=== PATIENT | female | born 1990 | race Caucasian/White ===

== ENCOUNTER → 2017-01-18 | Outpatient (CLI) | payer OTHER ==
[2017-01-18 12:17] LABS: BASO % 0.4 %; BASO ABS # 0.04 K/uL (0-0.2); COMPLETE YES; EOS % 1.7 %; HEMATOCRIT 41.8 % (37-47); IG% 0.3 %; LYMPH % 24.3 %; LYMPH ABS # 2.28 K/uL (1.2-3.4); MEAN CELL VOLUME 87.4 fL (80-100); MEAN CORPUSCULAR HEMOGLOBIN 30.5 pg (25-34); MEAN CORPUSCULAR HGB CONC 34.9 g/dl (32-36); MEAN PLATELET VOLUME 10.7 fL (7.4-10.4); MONO % 7.1 %; NEUT % 66.2 %; PLATELET COUNT 295 K/uL (130-400); RED BLOOD COUNT 4.78 M/uL (4.2-5.4); WHITE BLOOD COUNT 9.38 K/uL (4.8-10.8)
[2017-01-18 12:30] LABS: ALT/SGPT 22 U/L (12-78); AST/SGOT 12 U/L (15-37); BLOOD UREA NITROGEN 9 mg/dl (7-18); CALCIUM 9.2 mg/dl (8.5-10.1); CARBON DIOXIDE 29 mmol/L (21-32); CHLORIDE 105 mmol/L (98-107); CREATININE 0.79 mg/dl (0.60-1.20); GLUCOSE 83 mg/dl (70-99); MAGNESIUM 1.9 mg/dl (1.8-2.4); POTASSIUM 4.1 mmol/L (3.5-5.1); SODIUM 139 mmol/L (136-145)
[2017-01-18 12:41] LABS: ALB/GLOB RATIO 0.9 (0.9-2); ALKALINE PHOSPHATASE 60 U/L (45-117)
[2017-01-18 12:58] LABS: ESTIMATED AVERAGE GLUCOSE 108 mg/dl; HA1C FLAG Normal (Normal)
== END | disposition home or self-care (01) ==
LOC: C.LAB1850 09:38
PROVIDERS: ATTEND Nurse Practitioner Adult Health
DX: R00.2 Palpitations (principal); Z13.1 Encounter for screening for diabetes mellitus

== ENCOUNTER 2022-04-05 08:02 | Inpatient (IN) ==
[2022-04-05] MEDS ORDERED: LIDOCAINE 1% LOCAL 20 ML VIAL INFIL PRN (10:58)
[2022-04-05] MEDS ORDERED: miSOPROStoL 50 MCG TAB PO ONE (10:58)
[2022-04-05] MEDS ORDERED: OXYTOCIN 30 UNITS/500 ML BAG IV PRN (10:58)
--- NOTE | 2022-04-05 11:02 | Obstetrical Progress Note ---
Date of Service April 05, 2022 Assessment & Plan (1) : Plan: Indcution for Obesity and GDMA1 FHR; CAT1 ctx .Minimal VE;F t/post/-3 Cytotec #1 Admission and Anticipated Discharge Date Admission Date: April 05, 2022 Results & Data ([facility]) Vital Signs (Past 12 Hours) Vital Signs Temp Pulse Resp BP 04/05/22 08:12 36.7 C 99 H 20 141/83 H 04/05/22 08:13 36.7 C 99 H 20 141/83 H
[2022-04-05 11:25] LABS: Hemoglobin 11.9 g/dl (12.0-16.0); Mean Corpuscular Hemoglobin 28.5 pg (25.0-34.0); Mean Corpuscular Hgb Conc 33.1 g/dL (32.0-36.0); Mean Corpuscular Volume 86.3 fL (80.0-100.0); Mean Platelet Volume 10.7 fL (9.4-12.3); Platelet Count 273 K/uL (130-400); RDW Coefficient of Variation 15.7 % (11.5-14.5); RDW Standard Deviation 48.6 fL (36.4-46.3); Red Blood Count 4.17 M/uL (3.93-5.22); White Blood Count 16.52 K/ul (4.8-10.8)
[2022-04-05] MEDS ORDERED: PHARMACY GLYCEMIC MGMT CONSULT PRN (12:42)
[2022-04-05] MEDS ORDERED: DEXTROSE 50% 50 ML SYRINGE IV PRN (13:45)
[2022-04-05] MEDS ORDERED: GLUCOSE 10 TAB/TUBE PO PRN (13:45)
[2022-04-05] MEDS ORDERED: GLUCOSE 40% GEL 15 GM TUBE PO PRN (13:45)
[2022-04-05] MEDS ORDERED: GLUCAGON FOR INJ 1 MG VIAL IM PRN (13:45)
--- NOTE | 2022-04-05 13:56 | Pharmacy Report ---
Pharmacy Glycemic Short Note 2 - Date of Service April 05, 2022 - Glycemic Short OUTPATIENT ANTIDIABETIC REGIMEN: * Levemir 10 units SQ qHS ASSESSMENT: * Ms Bae is here for induction of labor. * Pt has been using insulin for gestational diabetes. Will continue until patient delivers, at which time, suspect that patient's insulin needs will decrease/cease. * Will continue to follow and adjust as indicated. PLAN FOR INPATIENT GLYCEMIC CONTROL: * Basal insulin * Lantus 5 units SQ BID * Bolus insulin * NovoLog per scale q4h until delivery * Goal Range: Low 90 mg/dL - High 120 mg/dL * Correction Factor: per scale (see EMR for more details)
[2022-04-05] MEDS: INSULIN ASPART PER UNIT SC SCH ×2 (16:14→20:09)
[2022-04-05] MEDS: miSOPROStoL 50 MCG TAB PO SCH ×2 (16:35→20:39)
[2022-04-05] MEDS ORDERED: DINOPROSTONE 10 MG INSERT PV ONE (20:49)
[2022-04-05] MEDS ORDERED: miSOPROStoL 50 MCG TAB PO SCH (21:00)
[2022-04-05] MEDS ORDERED: LANTUS PER UNIT CHARGE SQ SCH (21:00)
[2022-04-05] MEDS: LANTUS PER UNIT CHARGE SQ SCH (21:03)
--- NOTE | 2022-04-05 22:52 | Labor Progress Brief Note ---
Date of Service April 05, 2022 Assessment & Plan (1) : Plan: Induction for obesity Pt doing well FHR; CAT1 Ctx ; Minimal VE; ft/post Cervidil #1 placed Admission and Anticipated Discharge Date Admission Date: April 05, 2022 Results & Data ([facility]) Vital Signs (Past 12 Hours) Vital Signs Temp Pulse Resp BP 04/05/22 19:00 37.0 C 18 04/05/22 22:10 37.1 C 106 H 18 136/83 04/05/22 19:06 96 H 146/90 H 04/05/22 11:52 36.8 C 88 18 137/93 04/05/22 11:12 92 H 163/99 H
[2022-04-06] MEDS: INSULIN ASPART PER UNIT SC SCH ×4 (08:08→20:05)
[2022-04-06] MEDS: LANTUS PER UNIT CHARGE SQ SCH ×2 (08:30→20:10)
[2022-04-06] MEDS: miSOPROStoL 50 MCG TAB PO SCH ×4 (08:36→23:33)
--- NOTE | 2022-04-06 10:51 | Labor Progress Brief Note ---
Date of Service April 06, 2022 Assessment & Plan Admission and Anticipated Discharge Date Admission Date: April 05, 2022 Physical Exam Genitourinary: Manual OB Exam: + cervical dilation fingertip, + cervical effacement 50% and + station high OB Exam Monitor Tracing: + external FHT monitor used, + external uterine monitor used, + category I and + normal FHT variability Cervidil removed. Will start Cytotec to continue ripening. Results & Data ([facility]) Vital Signs (Past 12 Hours) Vital Signs Temp Pulse Resp BP 04/06/22 07:09 18 04/06/22 07:09 36.8 C 100 H 18 132/87 04/06/22 02:32 36.8 C 87 18 127/78
[2022-04-06] MEDS ORDERED: Nursing to Pharmacy Communication SCH ×2 (11:15→19:45)
[2022-04-06] MEDS ORDERED: miSOPROStoL 50 MCG TAB PO SCH (20:00)
[2022-04-07] MEDS: miSOPROStoL 50 MCG TAB PO SCH ×2 (03:48→19:45)
[2022-04-07] MEDS: LANTUS PER UNIT CHARGE SQ SCH (08:06)
[2022-04-07] MEDS: LACTATED RINGER'S 1,000 ML IV PRN ×3 (09:45→18:41)
--- NOTE | 2022-04-07 10:08 | Obstetrical Progress Note ---
Date of Service April 07, 2022 Assessment & Plan (1) : Plan: Induction day #3 pt doing well FHR; CAT1 Ctx; Minimal Attempted gordon bulb placement. cervix was dilated and bulb fell after 30cc saline VE: /-2 Plan start Pitocin augmentation Admission and Anticipated Discharge Date Admission Date: April 05, 2022 Results & Data ([facility]) Vital Signs (Past 12 Hours) Vital Signs Temp Pulse Resp BP 04/07/22 07:12 36.7 C 18 04/06/22 23:00 37.3 C 16 04/07/22 07:10 18 04/07/22 07:10 36.7 C 18 04/07/22 07:15 95 H 133/78 04/07/22 04:52 18 04/07/22 04:52 37.0 C 18 04/07/22 03:03 93 H 121/70 04/06/22 22:53 102 H 134/87
[2022-04-07] MEDS: OXYTOCIN 30 UNITS/500 ML BAG IV PRN (10:20)
--- NOTE | 2022-04-07 10:36 | Pharmacy Report ---
Pharmacy Glycemic Short Note 2 - Date of Service April 07, 2022 - Glycemic Short BSG Results (Last 24 hours): 04/06/22 04/06/22 04/06/22 12:00 15:59 20:02 POC Glucose 92 128 H 84 04/06/22 04/07/22 04/07/22 23:57 03:32 07:59 POC Glucose 85 80 91 OUTPATIENT ANTIDIABETIC REGIMEN: * Levemir 10 units SQ qHS ASSESSMENT: 04/07: * Patient received 10 units of basal insulin and 2 units of bolus insulin yesterday. * Blood sugars have been well controlled ranging between 81 to 128 mg/dl yesterday. * Will continue current dosing until patient delivers. Background 04/05/22: * Ms Bae is here for induction of labor. * Pt has been using insulin for gestational diabetes. Will continue until patient delivers, at which time, suspect that patient's insulin needs will decrease/cease. * Will continue to follow and adjust as indicated. PLAN FOR INPATIENT GLYCEMIC CONTROL: * Basal insulin * Lantus 5 units SQ BID while still in labor. Hold after delivery. * Bolus insulin * NovoLog per scale q4h until delivery * Goal Range: Low 90 mg/dL - High 120 mg/dL * Correction Factor: per scale (see EMR for more details)
[2022-04-07] MEDS ORDERED: Nursing to Pharmacy Communication SCH (11:30)
[2022-04-07] MEDS: INSULIN ASPART PER UNIT SC SCH ×2 (11:59→20:02)
[2022-04-07] MEDS ORDERED: ePHEDrine sulfate 50 MG/ML AMP ONE (17:51)
[2022-04-07] MEDS ORDERED: fentaNYL citrate 100 MCG/2 ML VIAL ONE (17:52)
[2022-04-07] MEDS ORDERED: SODIUM CHLORIDE 0.9% INJ 10 ML VIAL ONE (17:52)
[2022-04-07] MEDS ORDERED: BUPIVACAINE 0.25% 30 ML VIAL ONE (17:52)
[2022-04-07] MEDS ORDERED: LIDOCAINE 2%/EPINEPHRINE 1:200,000 20 ML SDV ONE (17:52)
[2022-04-07] MEDS ORDERED: fentaNYL 2MCG/ML ROPIVACAINE 1.25MG/ML 100 ML BAG EPI ONE (17:52)
--- NOTE | 2022-04-07 18:03 | Anesthesiology Consultation ---
Date of Service April 07, 2022 Assessment & Plan Chart Review Chart Review: Patient NOT seen in Pre Admission Testing and Acceptable Risk for Labor Epidural Consults Requested none ASA ASA3 Proposed Anesthesia Anesthesia Type: Labor Epidural Risk / Benefits Reviewed With: PT / POA / Parent / Guardian, Accepts Plan and Informed Consent Obtained History Height/Weight Height: 5 ft 6 in Weight: 144.242 kg Allergies Allergy/AdvReac Type Severity Reaction Status Date / Time amoxicillin Allergy Hives Verified 04/05/22 08:49 Medications Home Medications Medication Instructions Recorded Confirmed Last Taken albuterol sulfate 90 mcg/actuation 2 puffs inhalation Q8H PRN sob #1 g 11/20/19 06/12/20 05/14/20 aerosol inhaler aspirin 81 mg chewable tablet 81 mg PO DAILY 04/05/22 04/05/22 04/05/22 insulin detemir U-100 100 unit/mL 10 unit subcut HS 04/05/22 04/05/22 04/04/22 (3 mL) subcutaneous pen [id number] 1 mg 1 tab PO 04/05/22 04/05/22 tablet Active Medications Generic Name Dose Route Start Last Admin Trade Name Freq PRN Reason Stop Dose Admin Lactated Ringer's 1,000 mls @ 125 mls/hr 04/05/22 10:58 04/07/22 17:36 Lr IV 04/07/22 23:59 999 mls/hr .Q8H PRN Administration L&D Protocol Protocol Oxytocin 30 units in 500 mls @ 18 mls/hr 04/07/22 10:08 04/07/22 14:35 Pitocin IV 04/09/22 10:07 1.08 units/hr .Q24H PRN 18 mls/hr Labor Induction/Augmentation Titration Protocol 1.08 UNITS/HR Insulin Aspart 0 units 04/05/22 16:00 04/07/22 11:59 Insulin Aspart Per Unit SC 05/05/22 15:59 4 units Q4 QUINCY Administration Protocol Past Medical History Medical History (Updated 04/06/22 @ 22:02 by Gavino Millan MD) Asthma GDM (gestational diabetes mellitus) Migraine without aura Morbid obesity Exercise / Class Metabolic Activity II 4-5 Yardwork/Stairs/Walk up hill Past Family History Family History Family/Other Breast cancer Father Myocardial infarction Daughter No problems noted. Grandfather Myocardial infarction Denies family history of Ovarian cancer Prostate cancer Colorectal cancer Past Surgical History Surgical History History of wisdom tooth extraction Past Anesthesia History No Hx of Anesthesia Complications and No Family Hx of Anesthesia Complications History of PONV No Hx of PONV and No Hx of Motion Sickness Social History Smoking Status: Never smoker Hx Alcohol Use: No Hx Substance Use: No Physical Exam Vital Signs Last Vital Signs Temp 36.7 C 04/07/22 10:34 Pulse 93 H 04/07/22 17:01 Resp 18 04/07/22 10:34 BP 140/81 04/07/22 17:01 Constitutional + morbidly obese ENMT Mouth: no dentition abnormality Thyromental Distance: > or= 3.5 Finger Breadths Mallampati Class: II Neck normal visual inspection Respiratory normal respiratory effort Auscultation: lungs clear to auscultation bilaterally Cardiovascular Rate/Rhythm: regular rate and regular rhythm Psychiatric Orientation: alert Testing Laboratory Results 04/05/22 11:17 Blood Type A Positive 04/05/22 11:17 Antibody Screen NEGATIVE 04/05/22 11:17 04/07/22 04/07/22 04/07/22 16:03 15:18 14:58 POC Glucose 74 61 L* 56 L* 04/07/22 04/07/22 11:51 07:59 POC Glucose 154 H 91
[2022-04-07] MEDS ORDERED: ONDANSETRON INJ 2 MG/ML 2 ML VIAL IV PRN (18:32)
[2022-04-07] MEDS ORDERED: NALBUPHINE HCL INJ 10 MG/ML AMP IV PRN (18:32)
[2022-04-07] MEDS ORDERED: diphenhydrAMINE 50 MG/ML VIAL IV PRN (18:32)
[2022-04-07] MEDS ORDERED: NALOXONE HCL 0.4 MG/1 ML VIAL/CARP IV PRN (18:32)
[2022-04-07] MEDS ORDERED: ePHEDrine sulfate 50 MG/ML AMP IV PRN (18:32)
[2022-04-07] MEDS ORDERED: PROMETHAZINE HCL 6.25 MG in SODIUM CHLORIDE 0.9% 50 ML IV PRN (18:32)
[2022-04-07] MEDS ORDERED: NALOXONE HCL 1 MG in SODIUM CHLORIDE 0.9% 1000ML 1,000 ML IV PRN (18:32)
[2022-04-07] MEDS: CARBOHYDRATES FOR HYPOGLYCEMIA PO PRN (20:00)
[2022-04-07] MEDS ORDERED: LANTUS PER UNIT CHARGE SQ SCH (20:00)
[2022-04-08] MEDS: CARBOHYDRATES FOR HYPOGLYCEMIA PO PRN (00:05)
[2022-04-08] MEDS: INSULIN ASPART PER UNIT SC SCH ×3 (00:06→12:11)
--- NOTE | 2022-04-08 01:12 | Labor Progress Brief Note ---
Date of Service April 08, 2022 Assessment & Plan (1) Morbid obesity: Plan: Induction Day #3 FHR; CAT3 AROM IUPC and FSE placed Pit ; 20 MU Ctx 2-4min VE 4-5/50/-2. Unchanged Plan Increase Pitocin. Max at 30 Admission and Anticipated Discharge Date Admission Date: April 05, 2022 Results & Data ([facility]) Vital Signs (Past 12 Hours) Vital Signs Temp Pulse Resp BP Pulse Ox 04/08/22 01:04 121 H 100 04/08/22 00:59 109 H 100 04/08/22 00:58 107 H 193/84 H 04/08/22 00:54 101 H 100 04/08/22 00:49 115 H 100 04/08/22 00:44 114 H 99 04/08/22 00:43 94 H 178/86 H 04/08/22 00:39 99 H 99 04/08/22 00:30 18 04/08/22 00:30 18 04/08/22 00:34 102 H 99 04/08/22 00:29 95 H 100 04/08/22 00:28 106 H 139/80 04/08/22 00:24 104 H 100 04/08/22 00:19 86 99 04/08/22 00:14 89 100 04/08/22 00:13 91 H 133/67 04/08/22 00:09 91 H 99 04/08/22 00:00 18 04/08/22 00:00 18 04/08/22 00:04 94 H 99 04/07/22 23:59 113 H 100 04/07/22 23:57 85 137/72 04/07/22 23:54 89 99 04/07/22 23:49 88 99 04/07/22 23:44 83 98 04/07/22 23:42 91 H 137/64 04/07/22 23:39 88 98 04/07/22 23:30 16 04/07/22 23:30 16 04/07/22 23:34 90 98 04/07/22 23:29 90 98 04/07/22 23:27 99 H 127/65 04/07/22 23:24 89 97 04/07/22 23:19 95 H 98 04/07/22 23:14 95 H 98 04/07/22 23:12 91 H 140/71 04/07/22 23:09 95 H 98 04/07/22 23:04 98 H 99 04/07/22 23:00 18 04/07/22 23:00 37.0 C 18 04/07/22 22:59 101 H 100 04/07/22 22:56 95 H 88 L 04/07/22 22:57 100 H 81/45 L 04/07/22 22:54 91 H 98 04/07/22 22:49 92 H 98 04/07/22 22:44 92 H 99 04/07/22 22:43 93 H 110/56 L 04/07/22 22:39 98 H 100 04/07/22 22:30 18 04/07/22 22:30 18 04/07/22 22:34 93 H 99 04/07/22 22:29 93 H 100 04/07/22 22:28 97 H 103/59 L 04/07/22 22:24 97 H 100 04/07/22 22:19 95 H 100 04/07/22 22:14 100 H 100 04/07/22 22:12 97 H 114/65 04/07/22 22:09 104 H 100 04/07/22 22:04 96 H 100 04/07/22 21:59 91 H 100 04/07/22 21:57 86 109/58 L 04/07/22 21:54 88 100 04/07/22 21:49 118 H 100 04/07/22 21:44 116 H 100 04/07/22 21:43 102 H 149/86 H 04/07/22 21:39 105 H 100 04/07/22 21:34 135 H 100 04/07/22 21:29 90 100 04/07/22 21:26 88 114/59 L 04/07/22 21:24 98 H 100 04/07/22 21:00 18 04/07/22 21:00 18 04/07/22 21:19 102 H 100 04/07/22 21:14 37.0 C 103 H 100 04/07/22 21:12 90 126/63 04/07/22 21:09 106 H 100 04/07/22 21:04 106 H 100 04/07/22 20:59 92 H 100 04/07/22 20:58 88 113/66 04/07/22 20:54 92 H 100 04/07/22 20:49 100 H 100 04/07/22 20:44 102 H 100 04/07/22 20:42 91 H 119/61 04/07/22 20:39 94 H 100 04/07/22 20:30 18 04/07/22 20:30 18 04/07/22 20:34 88 100 04/07/22 20:29 100 H 100 04/07/22 20:28 100 H 129/69 04/07/22 20:24 145 H 100 04/07/22 20:19 102 H 100 04/07/22 20:14 98 H 100 04/07/22 20:11 96 H 149/86 H 04/07/22 20:00 18 04/07/22 20:00 18 04/07/22 20:09 91 H 100 04/07/22 20:04 97 H 100 04/07/22 19:59 94 H 100 04/07/22 19:57 105 H 151/90 H 04/07/22 19:54 105 H 100 04/07/22 19:49 94 H 100 04/07/22 19:44 102 H 99 04/07/22 19:43 96 H 139/77 04/07/22 19:39 95 H 99 04/07/22 19:30 18 04/07/22 19:30 18 04/07/22 19:34 96 H 100 04/07/22 19:29 93 H 100 04/07/22 19:26 92 H 141/79 H 04/07/22 19:24 90 100 04/07/22 19:19 92 H 100 04/07/22 19:14 102 H 100 04/07/22 19:09 104 H 154/86 H 100 04/07/22 19:04 101 H 100 04/07/22 19:03 96 H 143/84 H 04/07/22 18:59 97 H 100 04/07/22 19:00 36.8 C 97 H 18 141/84 H 04/07/22 18:54 100 04/07/22 18:54 102 H 04/07/22 18:54 96 H 146/88 H 04/07/22 18:49 100 04/07/22 18:49 101 H 04/07/22 18:49 101 H 140/93 04/07/22 18:44 108 H 147/83 H 100 04/07/22 18:39 100 H 100 04/07/22 18:38 105 H 147/86 H 04/07/22 18:34 107 H 100 04/07/22 18:32 111 H 147/84 H 04/07/22 18:29 122 H 100 04/07/22 18:30 123 H 162/94 H 04/07/22 18:28 111 H 150/86 H 04/07/22 18:26 100 H 139/75 04/07/22 18:24 100 04/07/22 18:24 106 H 04/07/22 18:24 111 H 136/76 04/07/22 18:22 110 H 149/87 H 04/07/22 18:19 100 04/07/22 18:19 106 H 04/07/22 18:19 105 H 152/86 H 04/07/22 18:14 101 H 100 04/07/22 18:09 110 H 100 04/07/22 17:01 93 H 140/81 04/07/22 16:06 89 139/86 04/07/22 15:16 96 H 156/79 H 04/07/22 15:00 96 H 154/94 H 04/07/22 14:46 91 H 138/82 04/07/22 14:30 92 H 141/82 H 04/07/22 14:15 94 H 141/84 H 04/07/22 14:00 92 H 140/91 04/07/22 13:30 87 157/93 H 04/07/22 13:16 82 148/93 H
[2022-04-08] MEDS ORDERED: Nursing to Pharmacy Communication SCH (01:30)
[2022-04-08] MEDS: LACTATED RINGER'S 1,000 ML IV SCH ×2 (02:36→09:57)
[2022-04-08] MEDS: fentaNYL 2MCG/ML ROPIVACAINE 1.25MG/ML 100 ML BAG EPI PRN ×3 (03:26→14:43)
[2022-04-08] MEDS ORDERED: NURSING L&D Epidural Breakthrough Pain Update ONE (06:57)
--- NOTE | 2022-04-08 09:30 | Labor Progress Brief Note ---
Date of Service April 08, 2022 Subjective Patient comfortable on epidural, no complaints at this time Assessment & Plan (1) Morbid obesity: Plan: Currently on pit, cat II tracing If no change at 4 hrs wih adequate ctx-c section for arrest of first stage, 6 hrs with not adequate ctx (2) Gestational hypertension: Plan: Meets criteria based on elevated BP 4 hrs apart. Noted several severe range BP but due to positional per nursing staff. Low threshold to start mag [facility] labs ordered Admission and Anticipated Discharge Date Admission Date: April 05, 2022 Physical Exam Physical Exam: 2+ pitting edema on fett, SCDs in place Genitourinary: FHT: baseline 140, mod varibaility, +accels, variable decels, cat II [place]: q2-3 min oxytocin at 30 milunits/hr, not adequate Cx: 9/100/0 +caput Results & Data ([facility]) Vital Signs (Past 12 Hours) Vital Signs Temp Pulse Resp BP Pulse Ox 04/08/22 07:17 37.0 C 20 04/08/22 09:19 115 H 100 04/08/22 09:14 91 H 99 04/08/22 09:11 95 H 130/81 04/08/22 09:09 93 H 99 04/08/22 09:04 95 H 98 04/08/22 09:00 18 04/08/22 09:00 18 04/08/22 08:30 18 04/08/22 08:30 18 04/08/22 08:59 92 H 98 04/08/22 08:00 18 04/08/22 08:00 18 04/08/22 08:56 96 H 129/82 04/08/22 08:54 92 H 98 04/08/22 08:49 93 H 98 04/08/22 08:44 95 H 98 04/08/22 08:41 96 H 127/84 04/08/22 08:39 93 H 97 04/08/22 08:34 95 H 98 04/08/22 08:29 97 H 98 04/08/22 08:26 96 H 138/78 04/08/22 08:24 93 H 97 04/08/22 08:19 96 H 97 04/08/22 08:14 103 H 99 04/08/22 08:11 99 H 138/78 04/08/22 08:09 95 H 98 04/08/22 08:04 99 H 98 04/08/22 07:59 93 H 96 04/08/22 07:56 100 H 132/77 04/08/22 07:54 100 H 98 04/08/22 07:49 93 H 97 04/08/22 07:44 98 H 98 04/08/22 07:39 115 H 98 04/08/22 07:34 111 H 99 04/08/22 07:29 104 H 99 04/08/22 07:28 109 H 159/94 H 04/08/22 07:24 114 H 99 04/08/22 07:19 109 H 99 04/08/22 07:14 110 H 98 04/08/22 07:00 18 04/08/22 07:00 18 04/08/22 07:12 108 H 155/93 H 04/08/22 07:09 103 H 99 04/08/22 07:04 106 H 98 04/08/22 06:59 112 H 98 04/08/22 06:57 101 H 122/75 04/08/22 06:54 103 H 97 04/08/22 06:49 115 H 99 04/08/22 06:44 115 H 95 04/08/22 06:41 99 H 123/57 L 04/08/22 06:39 101 H 98 04/08/22 06:34 119 H 98 04/08/22 06:30 18 04/08/22 06:30 18 04/08/22 06:29 105 H 98 04/08/22 06:27 101 H 129/61 04/08/22 06:24 101 H 97 04/08/22 06:19 113 H 98 04/08/22 06:14 111 H 99 04/08/22 06:11 111 H 124/63 04/08/22 06:09 105 H 98 04/08/22 06:00 18 04/08/22 06:00 18 04/08/22 06:04 98 H 97 04/08/22 05:59 110 H 97 04/08/22 05:57 101 H 120/64 04/08/22 05:54 103 H 97 04/08/22 05:49 103 H 98 04/08/22 05:30 18 04/08/22 05:30 36.7 C 18 04/08/22 05:44 120 H 99 12/09/22 05:41 112 H 132/62 04/08/22 05:39 110 H 98 04/08/22 05:34 104 H 98 04/08/22 05:29 111 H 98 04/08/22 05:26 106 H 133/62 04/08/22 05:24 111 H 98 04/08/22 05:19 112 H 99 04/08/22 05:14 114 H 99 04/08/22 05:12 100 H 128/61 04/08/22 05:09 105 H 99 04/08/22 05:04 113 H 97 04/08/22 05:00 20 04/08/22 05:00 20 04/08/22 04:59 106 H 100 04/08/22 04:57 109 H 180/87 H 04/08/22 04:54 113 H 99 04/08/22 04:49 118 H 99 04/08/22 04:44 122 H 100 04/08/22 04:30 18 04/08/22 04:30 18 04/08/22 04:39 121 H 100 04/08/22 04:34 111 H 100 04/08/22 04:29 111 H 99 04/08/22 04:28 101 H 184/81 H 04/08/22 04:24 103 H 99 04/08/22 04:19 139 H 100 04/08/22 04:14 115 H 100 04/08/22 04:09 103 H 100 04/08/22 04:04 107 H 98 04/08/22 04:00 16 04/08/22 04:00 16 04/08/22 03:59 86 97 04/08/22 03:58 86 127/66 04/08/22 03:54 92 H 97 04/08/22 03:49 84 97 04/08/22 03:44 89 97 04/08/22 03:43 85 114/58 L 04/08/22 03:39 86 98 04/08/22 03:34 93 H 98 04/08/22 03:30 18 04/08/22 03:30 36.9 C 18 04/08/22 03:00 16 04/08/22 03:00 16 04/08/22 03:29 101 H 98 04/08/22 03:26 96 H 138/62 04/08/22 03:24 104 H 100 04/08/22 03:00 16 04/08/22 03:00 16 04/08/22 03:19 86 97 04/08/22 03:14 95 H 98 04/08/22 03:11 83 139/66 04/08/22 03:09 109 H 100 04/08/22 03:04 90 98 04/08/22 02:59 105 H 100 04/08/22 02:58 89 131/62 04/08/22 02:54 82 98 04/08/22 02:49 82 98 04/08/22 02:44 86 98 04/08/22 02:42 85 126/80 04/08/22 02:39 95 H 99 04/08/22 02:34 87 99 04/08/22 02:30 18 04/08/22 02:30 18 04/08/22 02:29 94 H 99 04/08/22 02:26 93 H 135/68 04/08/22 02:24 101 H 98 04/08/22 02:19 90 98 04/08/22 02:14 96 H 97 04/08/22 02:00 16 04/08/22 02:00 16 04/08/22 02:13 84 131/68 04/08/22 02:09 89 98 04/08/22 02:00 16 04/08/22 02:00 16 04/08/22 02:04 92 H 97 04/08/22 01:59 87 97 04/08/22 01:58 89 131/71 04/08/22 01:54 89 97 04/08/22 01:49 92 H 97 04/08/22 01:44 98 04/08/22 01:44 92 H 04/08/22 01:44 93 H 123/72 04/08/22 01:39 94 H 98 04/08/22 01:34 93 H 98 04/08/22 01:30 18 04/08/22 01:30 18 04/08/22 01:29 93 H 97 04/08/22 01:27 97 H 131/72 04/08/22 01:24 93 H 99 04/08/22 01:19 90 99 04/08/22 01:14 110 H 100 04/08/22 01:12 91 H 133/69 04/08/22 01:09 102 H 100 04/08/22 01:00 18 04/08/22 01:00 37.9 C H 18 04/08/22 01:04 121 H 100 04/08/22 00:59 109 H 100 04/08/22 00:58 107 H 193/84 H 04/08/22 00:54 101 H 100 04/08/22 00:49 115 H 100 04/08/22 00:44 114 H 99 04/08/22 00:43 94 H 178/86 H 04/08/22 00:39 99 H 99 04/08/22 00:30 18 04/08/22 00:30 18 04/08/22 00:34 102 H 99 04/08/22 00:29 95 H 100 04/08/22 00:28 106 H 139/80 04/08/22 00:24 104 H 100 04/08/22 00:19 86 99 04/08/22 00:14 89 100 04/08/22 00:13 91 H 133/67 04/08/22 00:09 91 H 99 04/08/22 00:00 18 04/08/22 00:00 18 04/08/22 00:04 94 H 99 04/07/22 23:59 113 H 100 04/07/22 23:57 85 137/72 04/07/22 23:54 89 99 04/07/22 23:49 88 99 04/07/22 23:44 83 98 04/07/22 23:42 91 H 137/64 04/07/22 23:39 88 98 04/07/22 23:30 16 04/07/22 23:30 16 04/07/22 23:34 90 98 04/07/22 23:29 90 98 04/07/22 23:27 99 H 127/65 04/07/22 23:24 89 97 04/07/22 23:19 95 H 98 04/07/22 23:14 95 H 98 04/07/22 23:12 91 H 140/71 04/07/22 23:09 95 H 98 04/07/22 23:04 98 H 99 04/07/22 23:00 18 04/07/22 23:00 37.0 C 18 04/07/22 22:59 101 H 100 04/07/22 22:56 95 H 88 L 04/07/22 22:57 100 H 81/45 L 04/07/22 22:54 91 H 98 04/07/22 22:49 92 H 98 04/07/22 22:44 92 H 99 04/07/22 22:43 93 H 110/56 L 04/07/22 22:39 98 H 100 04/07/22 22:30 18 04/07/22 22:30 18 04/07/22 22:34 93 H 99 04/07/22 22:29 93 H 100 04/07/22 22:28 97 H 103/59 L 04/07/22 22:24 97 H 100 04/07/22 22:19 95 H 100 04/07/22 22:14 100 H 100 04/07/22 22:12 97 H 114/65 04/07/22 22:09 104 H 100 04/07/22 22:04 96 H 100 04/07/22 21:59 91 H 100 04/07/22 21:57 86 109/58 L 04/07/22 21:54 88 100 04/07/22 21:49 118 H 100 04/07/22 21:44 116 H 100 04/07/22 21:43 102 H 149/86 H 04/07/22 21:39 105 H 100 04/07/22 21:34 135 H 100 04/07/22 21:29 90 100 04/07/22 21:26 88 114/59 L
[2022-04-08] MEDS: OXYTOCIN 30 UNITS/500 ML BAG IV PRN (09:37)
[2022-04-08 10:26] LABS: Creatinine Urine Random 136.7 mg/dl; Protein Creatinine Ratio Urine 0.1 (0-0.2); Total Protein Urine Random 19.7 mg/dl (0-11.9)
[2022-04-08 10:58] LABS: Hematocrit (blood only) 35.4 % (34.1-44.9); Hemoglobin 11.8 g/dl (12.0-16.0); Mean Corpuscular Hgb Conc 33.3 g/dL (32.0-36.0); Mean Platelet Volume 10.6 fL (9.4-12.3); Platelet Count 222 K/uL (130-400); RDW Coefficient of Variation 15.6 % (11.5-14.5); RDW Standard Deviation 49.8 fL (36.4-46.3); Red Blood Count 4.07 M/uL (3.93-5.22); White Blood Count 20.42 K/ul (4.8-10.8)
[2022-04-08 11:19] LABS: BUN Creatinine Ratio 13.5 (10-20); Calcium 7.7 mg/dl (8.5-10.1); Creatinine Clr Calc Pharmacy 165.2 ml/min; Est GFR (African American) 126.9 ml/min; Est GFR (Non-African American) 109.5 ml/min
--- NOTE | 2022-04-08 12:54 | Labor Progress Brief Note ---
Date of Service April 08, 2022 Subjective Patient comfortable on epidural, no complaints at this time Assessment & Plan (1) Morbid obesity: Plan: Patient had inadequate contractions despite being on 30 milliunits of oxytocin per hour, most likely the receptors were saturated and the oxytocin was discontinued for 1 hour. It was restarted, IUPC was not adequately picking up contractions. A new IUPC placed. On exam significant caput, head more at -2 station most likely CPD. Discussed with patient if no cervical change for 6 hrs with inadequate contractions, recommend delivery for arrest of sta ge of labor Patient was agreeable to sign consents at this time in case we need to proceed with delivery (2) Gestational hypertension: Plan: Meets criteria based on elevated BP 4 hrs apart. Noted several severe range BP but due to positional per nursing staff. Low threshold to start mag PIH labs wnl, P:C <0.3 Admission and Anticipated Discharge Date Admission Date: April 05, 2022 Physical Exam Physical Exam: heart tracing: Baseline 130s to 135, moderate variability, positive accelerations, no decelerations, category 1 tracing Tocometer: Contractions every 7 to 9 minutes, oxytocin currently at 8 milliunits/h Cervix: Ant lip/100/-1, new IUPC placed 2+ pitting edema on feet, SCDs in place Results & Data ([facility]) Vital Signs (Past 12 Hours) Vital Signs Temp Pulse Resp BP Pulse Ox 04/08/22 07:17 37.0 C 20 04/08/22 12:50 105 H 04/08/22 12:49 106 H 97 04/08/22 12:44 95 H 99 04/08/22 12:41 103 H 147/83 H 04/08/22 12:39 102 H 100 04/08/22 12:34 100 H 99 04/08/22 12:29 83 100 04/08/22 12:26 92 H 129/75 04/08/22 12:24 88 99 04/08/22 12:19 109 H 100 04/08/22 12:00 18 04/08/22 12:00 18 04/08/22 12:14 93 H 100 04/08/22 12:11 93 H 128/72 04/08/22 12:09 91 H 99 04/08/22 12:04 84 98 04/08/22 11:59 85 98 04/08/22 11:56 87 116/63 04/08/22 11:54 90 98 04/08/22 11:49 90 98 04/08/22 11:00 20 04/08/22 11:00 20 04/08/22 11:44 89 99 04/08/22 11:43 88 128/66 04/08/22 11:39 107 H 99 04/08/22 11:34 80 99 04/08/22 11:29 86 99 04/08/22 11:24 87 99 04/08/22 11:19 100 H 100 04/08/22 11:14 108 H 100 04/08/22 11:06 18 04/08/22 11:06 37.0 C 18 04/08/22 11:09 92 H 99 04/08/22 11:04 95 H 98 04/08/22 10:59 101 H 100 04/08/22 10:54 113 H 100 04/08/22 10:49 87 98 04/08/22 10:44 90 98 04/08/22 10:39 89 100 04/08/22 10:34 86 98 04/08/22 10:29 82 100 04/08/22 10:26 86 102/58 L 04/08/22 10:24 84 97 04/08/22 10:19 98 H 98 04/08/22 10:14 85 98 04/08/22 10:00 18 04/08/22 10:00 18 04/08/22 10:11 90 109/62 04/08/22 10:09 105 H 100 04/08/22 09:30 18 04/08/22 09:30 18 04/08/22 10:04 89 98 04/08/22 09:59 94 H 98 04/08/22 09:56 93 H 107/59 L 04/08/22 09:54 91 H 98 04/08/22 09:49 93 H 98 04/08/22 09:44 99 H 100 04/08/22 09:41 93 H 109/62 04/08/22 09:39 92 H 99 04/08/22 09:34 104 H 99 04/08/22 09:29 97 H 99 04/08/22 09:26 91 H 118/66 04/08/22 09:24 107 H 98 04/08/22 09:19 115 H 100 04/08/22 09:14 91 H 99 04/08/22 09:11 95 H 130/81 04/08/22 09:09 93 H 99 04/08/22 09:04 95 H 98 04/08/22 09:00 18 04/08/22 09:00 18 04/08/22 08:30 18 04/08/22 08:30 18 04/08/22 08:59 92 H 98 04/08/22 08:00 18 04/08/22 08:00 18 04/08/22 08:56 96 H 129/82 04/08/22 08:54 92 H 98 04/08/22 08:49 93 H 98 04/08/22 08:44 95 H 98 04/08/22 08:41 96 H 127/84 04/08/22 08:39 93 H 97 04/08/22 08:34 95 H 98 04/08/22 08:29 97 H 98 04/08/22 08:26 96 H 138/78 04/08/22 08:24 93 H 97 04/08/22 08:19 96 H 97 04/08/22 08:14 103 H 99 04/08/22 08:11 99 H 138/78 04/08/22 08:09 95 H 98 04/08/22 08:04 99 H 98 04/08/22 07:59 93 H 96 04/08/22 07:56 100 H 132/77 04/08/22 07:54 100 H 98 04/08/22 07:49 93 H 97 04/08/22 07:44 98 H 98 04/08/22 07:39 115 H 98 04/08/22 07:34 111 H 99 04/08/22 07:29 104 H 99 04/08/22 07:28 109 H 159/94 H 04/08/22 07:24 114 H 99 04/08/22 07:19 109 H 99 04/08/22 07:14 110 H 98 04/08/22 07:00 18 04/08/22 07:00 18 04/08/22 07:12 108 H 155/93 H 04/08/22 07:09 103 H 99 04/08/22 07:04 106 H 98 04/08/22 06:59 112 H 98 04/08/22 06:57 101 H 122/75 04/08/22 06:54 103 H 97 04/08/22 06:49 115 H 99 04/08/22 06:44 115 H 95 04/08/22 06:41 99 H 123/57 L 04/08/22 06:39 101 H 98 04/08/22 06:34 119 H 98 04/08/22 06:30 18 04/08/22 06:30 18 04/08/22 06:29 105 H 98 04/08/22 06:27 101 H 129/61 04/08/22 06:24 101 H 97 04/08/22 06:19 113 H 98 04/08/22 06:14 111 H 99 04/08/22 06:11 111 H 124/63 04/08/22 06:09 105 H 98 04/08/22 06:00 18 04/08/22 06:00 18 04/08/22 06:04 98 H 97 04/08/22 05:59 110 H 97 04/08/22 05:57 101 H 120/64 04/08/22 05:54 103 H 97 04/08/22 05:49 103 H 98 04/08/22 05:30 18 04/08/22 05:30 36.7 C 18 04/08/22 05:44 120 H 99 04/08/22 05:41 112 H 132/62 04/08/22 05:39 110 H 98 04/08/22 05:34 104 H 98 04/08/22 05:29 111 H 98 04/08/22 05:26 106 H 133/62 04/08/22 05:24 111 H 98 04/08/22 05:19 112 H 99 04/08/22 05:14 114 H 99 04/08/22 05:12 100 H 128/61 04/08/22 05:09 105 H 99 04/08/22 05:04 113 H 97 04/08/22 05:00 20 04/08/22 05:00 20 04/08/22 04:59 106 H 100 04/08/22 04:57 109 H 180/87 H 04/08/22 04:54 113 H 99 04/08/22 04:49 118 H 99 04/08/22 04:44 122 H 100 04/08/22 04:30 18 04/08/22 04:30 18 04/08/22 04:39 121 H 100 04/08/22 04:34 111 H 100 04/08/22 04:29 111 H 99 04/08/22 04:28 101 H 184/81 H 04/08/22 04:24 103 H 99 04/08/22 04:19 139 H 100 04/08/22 04:14 115 H 100 04/08/22 04:09 103 H 100 04/08/22 04:04 107 H 98 04/08/22 04:00 16 04/08/22 04:00 16 04/08/22 03:59 86 97 04/08/22 03:58 86 127/66 04/08/22 03:54 92 H 97 04/08/22 03:49 84 97 04/08/22 03:44 89 97 04/08/22 03:43 85 114/58 L 04/08/22 03:39 86 98 04/08/22 03:34 93 H 98 04/08/22 03:30 18 04/08/22 03:30 36.9 C 18 04/08/22 03:00 16 04/08/22 03:00 16 04/08/22 03:29 101 H 98 04/08/22 03:26 96 H 138/62 04/08/22 03:24 104 H 100 04/08/22 03:00 16 04/08/22 03:00 16 04/08/22 03:19 86 97 04/08/22 03:14 95 H 98 04/08/22 03:11 83 139/66 04/08/22 03:09 109 H 100 04/08/22 03:04 90 98 04/08/22 02:59 105 H 100 04/08/22 02:58 89 131/62 04/08/22 02:54 82 98 04/08/22 02:49 82 98 04/08/22 02:44 86 98 04/08/22 02:42 85 126/80 04/08/22 02:39 95 H 99 04/08/22 02:34 87 99 04/08/22 02:30 18 04/08/22 02:30 18 04/08/22 02:29 94 H 99 04/08/22 02:26 93 H 135/68 04/08/22 02:24 101 H 98 04/08/22 02:19 90 98 04/08/22 02:14 96 H 97 04/08/22 02:00 16 04/08/22 02:00 16 04/08/22 02:13 84 131/68 04/08/22 02:09 89 98 04/08/22 02:00 16 04/08/22 02:00 16 04/08/22 02:04 92 H 97 04/08/22 01:59 87 97 04/08/22 01:58 89 131/71 04/08/22 01:54 89 97 04/08/22 01:49 92 H 97 04/08/22 01:44 98 04/08/22 01:44 92 H 04/08/22 01:44 93 H 123/72 04/08/22 01:39 94 H 98 04/08/22 01:34 93 H 98 04/08/22 01:30 18 04/08/22 01:30 18 04/08/22 01:29 93 H 97 04/08/22 01:27 97 H 131/72 04/08/22 01:24 93 H 99 04/08/22 01:19 90 99 04/08/22 01:14 110 H 100 04/08/22 01:12 91 H 133/69 04/08/22 01:09 102 H 100 04/08/22 01:00 18 04/08/22 01:00 37.9 C H 18 04/08/22 01:04 121 H 100 04/08/22 00:59 109 H 100 04/08/22 00:58 107 H 193/84 H 04/08/22 00:54 101 H 100
[2022-04-08] MEDS ORDERED: ACETAMINOPHEN 500 MG TAB PO ONE (14:53)
[2022-04-08] MEDS ORDERED: CITRIC ACID/SODIUM CITRATE 15 ML UDC PO ONE (15:32)
[2022-04-08] MEDS ORDERED: AZITHROMYCIN 500 MG in DEXTROSE 5% 250 ML IV ONE (15:32)
--- NOTE | 2022-04-08 15:35 | Labor Progress Brief Note ---
Date of Service April 08, 2022 Subjective Patient comfortable on epidural, no complaints at this time Increased pressure Had low grade fever 37.9 30 min ago, give 1 gr Tylenol No s/s of chorio Assessment & Plan (1) Morbid obesity: Plan: no cervical change for 6 hrs with inadequate contractions, recommend delivery for arrest of stage of labor (2) Gestational hypertension: Plan: Meets criteria based on elevated BP 4 hrs apart. Noted several severe range BP but due to positional per nursing staff. Low threshold to start mag PIH labs wnl, P:C <0.3 (3) Arrested active phase of labor: Plan: Patient signed consent for 1LTCS earlier (see op report for counseling session) proceed CD with 3gr ancef and 500mg azithromycin preop Admission and Anticipated Discharge Date Admission Date: April 05, 2022 Physical Exam Physical Exam: heart tracing: Baseline 155, moderate variability, positive accelerations, no decelerations, category 1 tracing Tocometer: Contractions every 5 minutes, oxytocin currently at 14 milliunits/h Cervix: Ant lip/100/-1 2+ pitting edema on feet, SCDs in place Results & Data ([facility]) Vital Signs (Past 12 Hours) Vital Signs Temp Pulse Resp BP Pulse Ox 04/08/22 07:17 37.0 C 20 04/08/22 15:29 113 H 99 04/08/22 15:27 110 H 145/94 H 04/08/22 15:24 99 H 100 04/08/22 15:19 104 H 99 04/08/22 15:14 104 H 99 04/08/22 14:30 20 04/08/22 14:30 20 04/08/22 15:12 93 H 136/71 04/08/22 15:09 96 H 100 04/08/22 15:04 104 H 99 04/08/22 14:59 117 H 81 L 04/08/22 14:45 20 04/08/22 14:45 37.9 C H 20 04/08/22 14:56 107 H 138/74 04/08/22 14:54 111 H 100 04/08/22 14:49 104 H 100 04/08/22 14:44 105 H 99 04/08/22 14:42 104 H 141/80 H 04/08/22 14:39 109 H 99 04/08/22 14:34 105 H 100 04/08/22 14:29 96 H 100 04/08/22 14:26 97 H 149/73 H 04/08/22 14:24 92 H 99 04/08/22 14:19 100 H 100 04/08/22 14:14 108 H 100 04/08/22 14:11 98 H 145/73 H 04/08/22 14:09 99 H 99 04/08/22 14:04 118 H 99 04/08/22 14:00 18 04/08/22 14:00 37.0 C 18 04/08/22 13:40 18 04/08/22 13:40 18 04/08/22 13:59 100 H 100 04/08/22 13:58 99 H 151/76 H 04/08/22 13:54 106 H 99 04/08/22 13:49 108 H 100 04/08/22 13:44 89 99 04/08/22 13:42 102 H 149/95 H 04/08/22 13:39 93 H 99 04/08/22 13:34 116 H 97 04/08/22 13:30 20 04/08/22 13:30 20 04/08/22 13:00 18 04/08/22 13:00 18 04/08/22 13:29 97 H 99 04/08/22 13:27 99 H 146/88 H 04/08/22 13:24 111 H 100 04/08/22 13:19 101 H 100 04/08/22 12:30 20 04/08/22 12:30 20 04/08/22 13:14 99 H 100 04/08/22 13:13 96 H 137/93 04/08/22 13:09 102 H 100 04/08/22 12:36 20 04/08/22 12:36 20 04/08/22 13:04 99 H 100 04/08/22 12:59 100 H 100 04/08/22 12:56 100 H 153/84 H 04/08/22 12:54 108 H 100 04/08/22 12:50 105 H 83 L 04/08/22 12:49 106 H 97 04/08/22 12:44 95 H 99 04/08/22 12:41 103 H 147/83 H 04/08/22 12:39 102 H 100 04/08/22 12:34 100 H 99 04/08/22 12:29 83 100 04/08/22 12:26 92 H 129/75 04/08/22 12:24 88 99 04/08/22 12:19 109 H 100 04/08/22 12:00 18 04/08/22 12:00 18 04/08/22 12:14 93 H 100 04/08/22 12:11 93 H 128/72 04/08/22 12:09 91 H 99 04/08/22 12:04 84 98 04/08/22 11:59 85 98 04/08/22 11:56 87 116/63 04/08/22 11:54 90 98 04/08/22 11:49 90 98 04/08/22 11:00 20 04/08/22 11:00 20 04/08/22 11:44 89 99 04/08/22 11:43 88 128/66 04/08/22 11:39 107 H 99 04/08/22 11:34 80 99 04/08/22 11:29 86 99 04/08/22 11:24 87 99 04/08/22 11:19 100 H 100 04/08/22 11:14 108 H 100 04/08/22 11:06 18 04/08/22 11:06 37.0 C 18 04/08/22 11:09 92 H 99 04/08/22 11:04 95 H 98 04/08/22 10:59 101 H 100 04/08/22 10:54 113 H 100 04/08/22 10:49 87 98 04/08/22 10:44 90 98 04/08/22 10:39 89 100 04/08/22 10:34 86 98 04/08/22 10:29 82 100 04/08/22 10:26 86 102/58 L 04/08/22 10:24 84 97 04/08/22 10:19 98 H 98 04/08/22 10:14 85 98 04/08/22 10:00 18 04/08/22 10:00 18 04/08/22 10:11 90 109/62 04/08/22 10:09 105 H 100 04/08/22 09:30 18 04/08/22 09:30 18 04/08/22 10:04 89 98 04/08/22 09:59 94 H 98 04/08/22 09:56 93 H 107/59 L 04/08/22 09:54 91 H 98 04/08/22 09:49 93 H 98 04/08/22 09:44 99 H 100 04/08/22 09:41 93 H 109/62 04/08/22 09:39 92 H 99 04/08/22 09:34 104 H 99 04/08/22 09:29 97 H 99 04/08/22 09:26 91 H 118/66 04/08/22 09:24 107 H 98 04/08/22 09:19 115 H 100 04/08/22 09:14 91 H 99 04/08/22 09:11 95 H 130/81 04/08/22 09:09 93 H 99 04/08/22 09:04 95 H 98 04/08/22 09:00 18 04/08/22 09:00 18 04/08/22 08:30 18 04/08/22 08:30 18 04/08/22 08:59 92 H 98 04/08/22 08:00 18 04/08/22 08:00 18 04/08/22 08:56 96 H 129/82 04/08/22 08:54 92 H 98 04/08/22 08:49 93 H 98 04/08/22 08:44 95 H 98 04/08/22 08:41 96 H 127/84 04/08/22 08:39 93 H 97 04/08/22 08:34 95 H 98 04/08/22 08:29 97 H 98 04/08/22 08:26 96 H 138/78 04/08/22 08:24 93 H 97 04/08/22 08:19 96 H 97 04/08/22 08:14 103 H 99 04/08/22 08:11 99 H 138/78 04/08/22 08:09 95 H 98 04/08/22 08:04 99 H 98 04/08/22 07:59 93 H 96 04/08/22 07:56 100 H 132/77 04/08/22 07:54 100 H 98 04/08/22 07:49 93 H 97 04/08/22 07:44 98 H 98 04/08/22 07:39 115 H 98 04/08/22 07:34 111 H 99 04/08/22 07:29 104 H 99 04/08/22 07:28 109 H 159/94 H 04/08/22 07:24 114 H 99 04/08/22 07:19 109 H 99 04/08/22 07:14 110 H 98 04/08/22 07:00 18 04/08/22 07:00 18 04/08/22 07:12 108 H 155/93 H 04/08/22 07:09 103 H 99 04/08/22 07:04 106 H 98 04/08/22 06:59 112 H 98 04/08/22 06:57 101 H 122/75 04/08/22 06:54 103 H 97 04/08/22 06:49 115 H 99 04/08/22 06:44 115 H 95 04/08/22 06:41 99 H 123/57 L 04/08/22 06:39 101 H 98 04/08/22 06:34 119 H 98 04/08/22 06:30 18 04/08/22 06:30 18 04/08/22 06:29 105 H 98 04/08/22 06:27 101 H 129/61 04/08/22 06:24 101 H 97 04/08/22 06:19 113 H 98 04/08/22 06:14 111 H 99 04/08/22 06:11 111 H 124/63 04/08/22 06:09 105 H 98 04/08/22 06:00 18 04/08/22 06:00 18 04/08/22 06:04 98 H 97 04/08/22 05:59 110 H 97 04/08/22 05:57 101 H 120/64 04/08/22 05:54 103 H 97 04/08/22 05:49 103 H 98 04/08/22 05:30 18 04/08/22 05:30 36.7 C 18 04/08/22 05:44 120 H 99 04/08/22 05:41 112 H 132/62 04/08/22 05:39 110 H 98 04/08/22 05:34 104 H 98 04/08/22 05:29 111 H 98 04/08/22 05:26 106 H 133/62 04/08/22 05:24 111 H 98 04/08/22 05:19 112 H 99 04/08/22 05:14 114 H 99 04/08/22 05:12 100 H 128/61 04/08/22 05:09 105 H 99 04/08/22 05:04 113 H 97 04/08/22 05:00 20 04/08/22 05:00 20 04/08/22 04:59 106 H 100 04/08/22 04:57 109 H 180/87 H 04/08/22 04:54 113 H 99 04/08/22 04:49 118 H 99 04/08/22 04:44 122 H 100 04/08/22 04:30 18 04/08/22 04:30 18 04/08/22 04:39 121 H 100 04/08/22 04:34 111 H 100 04/08/22 04:29 111 H 99 04/08/22 04:28 101 H 184/81 H 04/08/22 04:24 103 H 99 04/08/22 04:19 139 H 100 04/08/22 04:14 115 H 100 04/08/22 04:09 103 H 100 04/08/22 04:04 107 H 98 04/08/22 04:00 16 04/08/22 04:00 16 04/08/22 03:59 86 97 04/08/22 03:58 86 127/66 04/08/22 03:54 92 H 97 04/08/22 03:49 84 97 04/08/22 03:44 89 97 04/08/22 03:43 85 114/58 L 04/08/22 03:39 86 98 04/08/22 03:34 93 H 98
[2022-04-08] MEDS ORDERED: LACTATED RINGER'S 500 ML IV PRN (15:49)
[2022-04-08] MEDS ORDERED: KETOROLAC 30 MG/ML VIAL IV PRN (15:49)
[2022-04-08] MEDS ORDERED: NALBUPHINE HCL INJ 10 MG/ML AMP IV PRN (15:49)
[2022-04-08] MEDS ORDERED: NALOXONE HCL 1 MG in SODIUM CHLORIDE 0.9% 1000ML 1,000 ML IV PRN (15:49)
[2022-04-08] MEDS ORDERED: ePHEDrine sulfate 50 MG/ML AMP IV PRN (15:49)
[2022-04-08] MEDS ORDERED: NALOXONE HCL 0.08 MG in SYRINGE 1.8 ML IV PRN (15:49)
[2022-04-08] MEDS ORDERED: diphenhydrAMINE 50 MG/ML VIAL IV PRN (15:49)
[2022-04-08] MEDS ORDERED: MoRPHine SULFATE PF 1 MG/ML 10 ML AMP/VIAL EPI ONE (15:49)
[2022-04-08] MEDS ORDERED: MoRPHine SULFATE 2 MG/ML CARP IV PRN (15:49)
[2022-04-08] MEDS ORDERED: NALOXONE HCL 0.4 MG/1 ML VIAL/CARP IV PRN (15:49)
[2022-04-08] MEDS ORDERED: SODIUM CHLORIDE 0.9% 1000ML 1,000 ML IV SCH (16:00)
[2022-04-08] MEDS ORDERED: DC INTRASPINAL MORPHINE SCH (16:00)
[2022-04-08] MEDS ORDERED: NO NARCOTICS OR SEDATIVES SCH (16:00)
[2022-04-08] MEDS ORDERED: OXYTOCIN 10 UNITS/ML VIAL ONE (16:25)
[2022-04-08] MEDS ORDERED: HYDROCORTISONE ACETATE 25 MG SUPP PR PRN (16:27)
[2022-04-08] MEDS ORDERED: BENZOCAINE 20% AER SPR 82.5 GM CAN EXT PRN (16:27)
[2022-04-08] MEDS ORDERED: SENNA 8.6 MG TAB PO PRN (16:27)
[2022-04-08] MEDS ORDERED: MAGNESIUM HYDROXIDE SUSP 30 ML UDC PO PRN (16:27)
[2022-04-08] MEDS ORDERED: DIPHTHERIA/TETANUS/PERTUSSIS 0.5 ML SYR/VIAL IM ONE (16:27)
[2022-04-08] MEDS ORDERED: LACTATED RINGER'S 1,000 ML IV SCH (16:30)
[2022-04-08] MEDS ORDERED: MoRPHine SULFATE PF 1 MG/ML 10 ML AMP/VIAL ONE (16:56)
[2022-04-08] MEDS ORDERED: ONDANSETRON INJ 2 MG/ML 2 ML VIAL ONE (17:02)
[2022-04-08 17:39] LABS: Base Excess Cord Venous Blood -3.8 mEq/L (-7.7-1.9); Cord Venous Blood HCO3 24 mmol/L (18.4-26.8); Cord Venous Blood PCO2 52 mmHg (30.4-57.2); Cord Venous Blood PO2 16 mmHg (14.1-43.3); Cord Venous Blood pH 7.27 (7.20-7.44); O2 Saturation Cord Venous Bld < 60.0 % (<68)
[2022-04-08 17:41] LABS: Base Excess Cord Arterial Bld -7.4 mEq/L (-9-1.8); CO2 Cord Arterial Blood 61 mmHg (39.1-73.5); HCO3 Cord Arterial Blood 22 mmol/L (19.7-28.5); Oxygen Sat Cord Arterial Blood < 60.0 % (<60); PO2 Cord Arterial Blood 12 mmHg (4.1-31.7); pH Cord Arterial Blood 7.17 (7.1-7.38)
[2022-04-08] MEDS ORDERED: KETOROLAC 30 MG/ML VIAL ONE (17:47)
--- NOTE | 2022-04-08 17:54 | Operative Report ---
Post Operative Report Pre & Post Diagnosis Operation Date: 04/08/22 13:50 Pre-Op Diagnosis: 1. IUP at 39 weeks induction 2. GDM on insulin 3. Failure to progress (Arrest of first/active stage of labor) 4. Gestational Hypertension Post-Op Diagnosis: 5. Extension into vagina I identified the patient and participated in the time-out.: Yes Procedure Operation Date: 04/08/22 13:50 Actual Procedures Primary Section in LD(Bilateral) - Mey Jacob MD, PhD Surgeon Mey Jacob MD, PhD Software Tools Engineer Dr Castellon, surgical elastic knitter hand frame x2 Estimated Blood Loss 800 Findings See Below A liveborn male at 1658 with significant caput, APGARs 7/8, weight pending Normal appearing uterus, bilateral tubes and ovaries not visualized. Extensive extension from right angle of hysterotomy into the vagina appr oximately 8 cm in length Fluids See anesthesia record Specimens Placenta Drains Mosley catheter Anesthesia Type L&D Only Epidural Exists Complications None Disposition Accompanied Patient To Recovery: No Indications Arrest of active phase of labor Description of Procedure CD Delivery Note History synopsis: Patient is a 31-year-old who was admitted 04/05/2022 for induction of labor at 39 weeks for class III obesity, and gestational diabetes. On admission she was fingertip, and received 1 dose of Cytotec and made minimal change and a Cervidil was placed. And received Cytotec's for additional cervical ripening. The bulb was then placed for cervical dilation, made it to 3 cm dilated and oxytocin was started for augmentation. She made it to 9 cm dilated this morning, made no cervical change for over 6 hours despite inadequate contractions. Counseled for primary delivery for arrest of active phase of labor Procedure Summary: section was recommended. Risks, benefits and alternatives were discussed including but not limited to infection, bleeding that may require blood products or hysterectomy for life saving measures, injury to surrounding organs including but not limited to bowel, bladder, ureters, tubes and ovaries and/or the baby. Should injury occur it could require longer/additional surgery to repair. Patient was also counselled about risk of DVT/PE, and injury to infant during delivery. The patient stated understanding and desired to proceed. All questions were answered posed by patient. Prior to being taken to the OR, 3 g of Ancef, 500 mg of azithromycin was administered. The patient was taken to the operating room where regional anesthesia was found to be adequate. Prior to monitors being removed FHR was bpm with no decelerations. She was then prepared and draped in the usual sterile fashion in the dorsal supine position with a leftward tilt displacing the uterus. Mosley was draining to gravity. SCDs were on bilateral lower extremities. A pfannenstiel skin incision was then made with the scalpel and carried through to the underlying layer of fascia. The fascia was incised in the midline and the incision extended laterally with the Espinal scissors. The superior aspect of the facial incision was then grasped with the Anoop clamps, elevated and the underlying rectus muscles dissected off bluntly. Attention was then turned to the inferior aspect of this incision which in a similar fashion was grasped, elevated with the Anoop clamps and the rectus muscle dissected off bluntly. The rectus muscles were in the midline. The peritoneum identified, grasped with the pick-ups and entered sharply with the Metzenbaum scissors. The peritoneal incision was then extended superiorly and inferiorly with good visualization of the bladder. The bladder blade was inserted and the vesicouterine peritoneum was identified, grasped with the pick-ups, and entered sharply with Metzenbaum scissors. This incision was then extended laterally and the bladder flap created digitally and the bladder blade was reinserted. The lower uterine segment was identified and incised in a transverse fashion with the scalpel. The uterine incision was then extended bluntly laterally. Artificial rupture of membranes demonstrated clear fluid. The bladder blade was removed. The fetus was in cephalic presentation. The infant's head delivered atraumatically. The anterior shoulders were delivered followed by the posterior shoulders then the remainder of the body. The infant's mouth and nose were bulb suctioned. The umbilical cord was clamped times two and cut. The infant was handed off to the awaiting pediatric staff. A male was delivered, weight pending, with APGARS of 7 at 1 minute and 8 at 5 minutes. The was taken to the recovery room for transition. Cord blood gases were obtained. The placenta was removed with manual removal. 30 units of oxytocin were added to IVF and allowed to run freely. The uterus could not be exteriorized. It was cleared of all clots and debris. The uterine incision was inspected and found to be large extension of 8 cm on the right side into vagina. Called for additional help, which Dr Castellon was able to assist. The extension was repaired with 0-vicryl in locking fashion in two layers. The hysterotomy was repaired with 0 Vicryl in a running, locked fashion. A second imbricating layer was performed. Upon inspection, the repaired hysterotomy was found to be hemostatic. Sugifoam was applied on hysterotomy. The uterus was firm and returned to the abdomen. The gutters were cleared of all clots and debris. The fascia was reapproximated with 0-PDS loop suture in a running fashion. The subcutaneous layer was closed with 2-0 vicryl in a running fashion.The skin was closed in a subcuticular fashion with 4-0 vicryl. Dermabond was applied over incision. EVARISTO dressing applied. The patient tolerated the procedure well. Sponge, lap and needle counts were correct x4. The patient was taken to the recovery room in stable condition. Attestation: My Software Tools Engineer was necessary throughout the procedure(s) for tissue retraction. I understand that section 1842 (b)(7)(D) of the Social Security Act generally prohibits Medicare physician fee schedule payment for the services of [id number] in teaching hospitals when qualified residents are available to furnish such services. I certify that the services for which payment is claimed were medically necessary, and that no qualified resident was available to perform the services. I further understand that these services are subject to post-payment review by the Medicare carrier. I attest to the content of the Intraoperative Record and any orders documented therein. Any exceptions are noted below.
[2022-04-08] MEDS ORDERED: PHENYLEPHRINE 100MCG/ML 5ML SYR ONE (17:59)
--- NOTE | 2022-04-08 18:09 | Anesthesia Procedure Note ---
Date of Service April 08, 2022 Anesthesia Post Epidural Note Vital Signs Vital Signs: Temp Pulse Resp BP Pulse Ox 37.9 C H 107 H 20 139/75 93 04/08/22 14:45 04/08/22 19:22 04/08/22 14:45 04/08/22 19:22 04/08/22 18:12 Pain Intensity Bilateral Abdomen: Pain Intensity: 0 Notes Mental Status: alert / awake / arousable Nausea / Vomiting: adequately controlled Pain: adequately controlled Airway Patency, RR, SpO2: stable & adequate BP & HR: stable & adequate Hydration State: stable & adequate Neuraxial Anesthesia: was administered and sensory block is resolving Anesthetic Complications: no major complications apparent and Pt Satisfied with anesthetic care Epidural: Removed without complications and With tip intact
[2022-04-08] MEDS ORDERED: GELATIN SPONGE SZ 100 EXT ONE (18:32)
--- NOTE | 2022-04-08 19:30 | Anesthesiology Progress Note ---
Date of Service April 08, 2022 Anesthesia Post Procedure Vital Signs Vital Signs: Temp Pulse Resp BP Pulse Ox 04/08/22 07:17 37.0 C 20 04/08/22 19:22 107 H 139/75 04/08/22 19:12 110 H 132/74 04/08/22 19:02 107 H 140/76 04/08/22 18:52 112 H 128/75 04/08/22 18:43 111 H 123/76 04/08/22 18:32 112 H 126/68 04/08/22 18:22 107 H 120/57 L 04/08/22 18:12 110 H 114/58 L 93 04/08/22 18:07 105 H 94 04/08/22 18:02 94 04/08/22 18:02 106 H 04/08/22 18:02 109 H 112/54 L 94 04/08/22 15:44 112 H 100 04/08/22 15:41 105 H 149/89 H 04/08/22 15:39 106 H 99 04/08/22 15:34 107 H 99 04/08/22 15:29 113 H 99 04/08/22 15:27 110 H 145/94 H 04/08/22 15:24 99 H 100 04/08/22 15:19 104 H 99 04/08/22 15:14 104 H 99 04/08/22 14:30 20 04/08/22 14:30 20 04/08/22 15:12 93 H 136/71 04/08/22 15:09 96 H 100 04/08/22 15:04 104 H 99 04/08/22 14:59 117 H 81 L 04/08/22 14:45 20 04/08/22 14:45 37.9 C H 20 04/08/22 14:56 107 H 138/74 04/08/22 14:54 111 H 100 04/08/22 14:49 104 H 100 04/08/22 14:44 105 H 99 04/08/22 14:42 104 H 141/80 H 04/08/22 14:39 109 H 99 04/08/22 14:34 105 H 100 04/08/22 14:29 96 H 100 04/08/22 14:26 97 H 149/73 H 04/08/22 14:24 92 H 99 04/08/22 14:19 100 H 100 04/08/22 14:14 108 H 100 04/08/22 14:11 98 H 145/73 H 04/08/22 14:09 99 H 99 04/08/22 14:04 118 H 99 04/08/22 14:00 18 04/08/22 14:00 37.0 C 18 04/08/22 13:40 18 04/08/22 13:40 18 04/08/22 13:59 100 H 100 04/08/22 13:58 99 H 151/76 H 04/08/22 13:54 106 H 99 04/08/22 13:49 108 H 100 04/08/22 13:44 89 99 04/08/22 13:42 102 H 149/95 H 04/08/22 13:39 93 H 99 04/08/22 13:34 116 H 97 04/08/22 13:30 20 04/08/22 13:30 20 04/08/22 13:00 18 04/08/22 13:00 18 04/08/22 13:29 97 H 99 04/08/22 13:27 99 H 146/88 H 04/08/22 13:24 111 H 100 04/08/22 13:19 101 H 100 04/08/22 12:30 20 04/08/22 12:30 20 04/08/22 13:14 99 H 100 04/08/22 13:13 96 H 137/93 04/08/22 13:09 102 H 100 04/08/22 12:36 20 04/08/22 12:36 20 04/08/22 13:04 99 H 100 04/08/22 12:59 100 H 100 04/08/22 12:56 100 H 153/84 H 04/08/22 12:54 108 H 100 04/08/22 12:50 105 H 83 L 04/08/22 12:49 106 H 97 04/08/22 12:44 95 H 99 04/08/22 12:41 103 H 147/83 H 04/08/22 12:39 102 H 100 04/08/22 12:34 100 H 99 04/08/22 12:29 83 100 04/08/22 12:26 92 H 129/75 04/08/22 12:24 88 99 04/08/22 12:19 109 H 100 04/08/22 12:00 18 04/08/22 12:00 18 04/08/22 12:14 93 H 100 04/08/22 12:11 93 H 128/72 04/08/22 12:09 91 H 99 04/08/22 12:04 84 98 04/08/22 11:59 85 98 04/08/22 11:56 87 116/63 04/08/22 11:54 90 98 04/08/22 11:49 90 98 04/08/22 11:00 20 04/08/22 11:00 20 04/08/22 11:44 89 99 04/08/22 11:43 88 128/66 04/08/22 11:39 107 H 99 04/08/22 11:34 80 99 04/08/22 11:29 86 99 04/08/22 11:24 87 99 04/08/22 11:19 100 H 100 04/08/22 11:14 108 H 100 04/08/22 11:06 18 04/08/22 11:06 37.0 C 18 04/08/22 11:09 92 H 99 04/08/22 11:04 95 H 98 04/08/22 10:59 101 H 100 04/08/22 10:54 113 H 100 04/08/22 10:49 87 98 04/08/22 10:44 90 98 04/08/22 10:39 89 100 04/08/22 10:34 86 98 04/08/22 10:29 82 100 04/08/22 10:26 86 102/58 L 04/08/22 10:24 84 97 04/08/22 10:19 98 H 98 04/08/22 10:14 85 98 04/08/22 10:00 18 04/08/22 10:00 18 04/08/22 10:11 90 109/62 04/08/22 10:09 105 H 100 04/08/22 09:30 18 04/08/22 09:30 18 04/08/22 10:04 89 98 04/08/22 09:59 94 H 98 04/08/22 09:56 93 H 107/59 L 04/08/22 09:54 91 H 98 04/08/22 09:49 93 H 98 04/08/22 09:44 99 H 100 04/08/22 09:41 93 H 109/62 04/08/22 09:39 92 H 99 04/08/22 09:34 104 H 99 04/08/22 09:29 97 H 99 04/08/22 09:26 91 H 118/66 04/08/22 09:24 107 H 98 04/08/22 09:19 115 H 100 04/08/22 09:14 91 H 99 04/08/22 09:11 95 H 130/81 04/08/22 09:09 93 H 99 04/08/22 09:04 95 H 98 04/08/22 09:00 18 04/08/22 09:00 18 04/08/22 08:30 18 04/08/22 08:30 18 04/08/22 08:59 92 H 98 04/08/22 08:00 18 04/08/22 08:00 18 04/08/22 08:56 96 H 129/82 04/08/22 08:54 92 H 98 04/08/22 08:49 93 H 98 04/08/22 08:44 95 H 98 04/08/22 08:41 96 H 127/84 04/08/22 08:39 93 H 97 04/08/22 08:34 95 H 98 04/08/22 08:29 97 H 98 04/08/22 08:26 96 H 138/78 04/08/22 08:24 93 H 97 04/08/22 08:19 96 H 97 04/08/22 08:14 103 H 99 04/08/22 08:11 99 H 138/78 04/08/22 08:09 95 H 98 04/08/22 08:04 99 H 98 04/08/22 07:59 93 H 96 04/08/22 07:56 100 H 132/77 04/08/22 07:54 100 H 98 04/08/22 07:49 93 H 97 04/08/22 07:44 98 H 98 04/08/22 07:39 115 H 98 04/08/22 07:34 111 H 99 04/08/22 07:29 104 H 99 04/08/22 07:28 109 H 159/94 H 04/08/22 07:24 114 H 99 04/08/22 07:19 109 H 99 04/08/22 07:14 110 H 98 04/08/22 07:00 18 04/08/22 07:00 18 04/08/22 07:12 108 H 155/93 H 04/08/22 07:09 103 H 99 04/08/22 07:04 106 H 98 04/08/22 06:59 112 H 98 04/08/22 06:57 101 H 122/75 04/08/22 06:54 103 H 97 04/08/22 06:49 115 H 99 04/08/22 06:44 115 H 95 04/08/22 06:41 99 H 123/57 L 04/08/22 06:39 101 H 98 04/08/22 06:34 119 H 98 04/08/22 06:30 18 04/08/22 06:30 18 04/08/22 06:29 105 H 98 04/08/22 06:27 101 H 129/61 04/08/22 06:24 101 H 97 04/08/22 06:19 113 H 98 04/08/22 06:14 111 H 99 04/08/22 06:11 111 H 124/63 04/08/22 06:09 105 H 98 04/08/22 06:00 18 04/08/22 06:00 18 04/08/22 06:04 98 H 97 04/08/22 05:59 110 H 97 04/08/22 05:57 101 H 120/64 04/08/22 05:54 103 H 97 04/08/22 05:49 103 H 98 04/08/22 05:30 18 04/08/22 05:30 36.7 C 18 04/08/22 05:44 120 H 99 04/08/22 05:41 112 H 132/62 04/08/22 05:39 110 H 98 04/08/22 05:34 104 H 98 04/08/22 05:29 111 H 98 04/08/22 05:26 106 H 133/62 04/08/22 05:24 111 H 98 04/08/22 05:19 112 H 99 04/08/22 05:14 114 H 99 04/08/22 05:12 100 H 128/61 04/08/22 05:09 105 H 99 04/08/22 05:04 113 H 97 04/08/22 05:00 20 04/08/22 05:00 20 04/08/22 04:59 106 H 100 04/08/22 04:57 109 H 180/87 H 04/08/22 04:54 113 H 99 04/08/22 04:49 118 H 99 04/08/22 04:44 122 H 100 04/08/22 04:30 18 04/08/22 04:30 18 04/08/22 04:39 121 H 100 04/08/22 04:34 111 H 100 04/08/22 04:29 111 H 99 04/08/22 04:28 101 H 184/81 H 04/08/22 04:24 103 H 99 04/08/22 04:19 139 H 100 04/08/22 04:14 115 H 100 04/08/22 04:09 103 H 100 04/08/22 04:04 107 H 98 04/08/22 04:00 16 04/08/22 04:00 16 04/08/22 03:59 86 97 04/08/22 03:58 86 127/66 04/08/22 03:54 92 H 97 04/08/22 03:49 84 97 04/08/22 03:44 89 97 04/08/22 03:43 85 114/58 L 04/08/22 03:39 86 98 04/08/22 03:34 93 H 98 04/08/22 03:30 18 04/08/22 03:30 36.9 C 18 04/08/22 03:00 16 04/08/22 03:00 16 04/08/22 03:29 101 H 98 04/08/22 03:26 96 H 138/62 04/08/22 03:24 104 H 100 04/08/22 03:00 16 04/08/22 03:00 16 04/08/22 03:19 86 97 04/08/22 03:14 95 H 98 04/08/22 03:11 83 139/66 04/08/22 03:09 109 H 100 04/08/22 03:04 90 98 04/08/22 02:59 105 H 100 04/08/22 02:58 89 131/62 04/08/22 02:54 82 98 04/08/22 02:49 82 98 04/08/22 02:44 86 98 04/08/22 02:42 85 126/80 04/08/22 02:39 95 H 99 04/08/22 02:34 87 99 04/08/22 02:30 18 04/08/22 02:30 18 04/08/22 02:29 94 H 99 04/08/22 02:26 93 H 135/68 04/08/22 02:24 101 H 98 04/08/22 02:19 90 98 04/08/22 02:14 96 H 97 04/08/22 02:00 16 04/08/22 02:00 16 04/08/22 02:13 84 131/68 04/08/22 02:09 89 98 04/08/22 02:00 16 04/08/22 02:00 16 04/08/22 02:04 92 H 97 04/08/22 01:59 87 97 04/08/22 01:58 89 131/71 04/08/22 01:54 89 97 04/08/22 01:49 92 H 97 04/08/22 01:44 98 04/08/22 01:44 92 H 04/08/22 01:44 93 H 123/72 04/08/22 01:39 94 H 98 04/08/22 01:34 93 H 98 04/08/22 01:30 18 04/08/22 01:30 18 04/08/22 01:29 93 H 97 04/08/22 01:27 97 H 131/72 04/08/22 01:24 93 H 99 04/08/22 01:19 90 99 04/08/22 01:14 110 H 100 04/08/22 01:12 91 H 133/69 04/08/22 01:09 102 H 100 04/08/22 01:00 18 04/08/22 01:00 37.9 C H 18 04/08/22 01:04 121 H 100 04/08/22 00:59 109 H 100 04/08/22 00:58 107 H 193/84 H 04/08/22 00:54 101 H 100 04/08/22 00:49 115 H 100 04/08/22 00:44 114 H 99 04/08/22 00:43 94 H 178/86 H 04/08/22 00:39 99 H 99 04/08/22 00:30 18 04/08/22 00:30 18 04/08/22 00:34 102 H 99 04/08/22 00:29 95 H 100 04/08/22 00:28 106 H 139/80 04/08/22 00:24 104 H 100 04/08/22 00:19 86 99 04/08/22 00:14 89 100 04/08/22 00:13 91 H 133/67 04/08/22 00:09 91 H 99 04/08/22 00:00 18 04/08/22 00:00 18 04/08/22 00:04 94 H 99 04/07/22 23:59 113 H 100 04/07/22 23:57 85 137/72 04/07/22 23:54 89 99 04/07/22 23:49 88 99 04/07/22 23:44 83 98 04/07/22 23:42 91 H 137/64 04/07/22 23:39 88 98 04/07/22 23:30 16 04/07/22 23:30 16 04/07/22 23:34 90 98 04/07/22 23:29 90 98 04/07/22 23:27 99 H 127/65 04/07/22 23:24 89 97 04/07/22 23:19 95 H 98 04/07/22 23:14 95 H 98 04/07/22 23:12 91 H 140/71 04/07/22 23:09 95 H 98 04/07/22 23:04 98 H 99 04/07/22 23:00 18 04/07/22 23:00 37.0 C 18 04/07/22 22:59 101 H 100 04/07/22 22:56 95 H 88 L 04/07/22 22:57 100 H 81/45 L 04/07/22 22:54 91 H 98 04/07/22 22:49 92 H 98 04/07/22 22:44 92 H 99 04/07/22 22:43 93 H 110/56 L 04/07/22 22:39 98 H 100 04/07/22 22:30 18 04/07/22 22:30 18 04/07/22 22:34 93 H 99 04/07/22 22:29 93 H 100 04/07/22 22:28 97 H 103/59 L 04/07/22 22:24 97 H 100 04/07/22 22:19 95 H 100 04/07/22 22:14 100 H 100 04/07/22 22:12 97 H 114/65 04/07/22 22:09 104 H 100 04/07/22 22:04 96 H 100 04/07/22 21:59 91 H 100 04/07/22 21:57 86 109/58 L 04/07/22 21:54 88 100 04/07/22 21:49 118 H 100 04/07/22 21:44 116 H 100 04/07/22 21:43 102 H 149/86 H 04/07/22 21:39 105 H 100 04/07/22 21:34 135 H 100 04/07/22 21:29 90 100 04/07/22 21:26 88 114/59 L 04/07/22 21:24 98 H 100 04/07/22 21:00 18 04/07/22 21:00 18 04/07/22 21:19 102 H 100 04/07/22 21:14 37.0 C 103 H 100 04/07/22 21:12 90 126/63 04/07/22 21:09 106 H 100 04/07/22 21:04 106 H 100 04/07/22 20:59 92 H 100 04/07/22 20:58 88 113/66 04/07/22 20:54 92 H 100 04/07/22 20:49 100 H 100 04/07/22 20:44 102 H 100 04/07/22 20:42 91 H 119/61 04/07/22 20:39 94 H 100 04/07/22 20:30 18 04/07/22 20:30 18 04/07/22 20:34 88 100 04/07/22 20:29 100 H 100 04/07/22 20:28 100 H 129/69 04/07/22 20:24 145 H 100 04/07/22 20:19 102 H 100 04/07/22 20:14 98 H 100 04/07/22 20:11 96 H 149/86 H 04/07/22 20:00 18 04/07/22 20:00 18 04/07/22 20:09 91 H 100 04/07/22 20:04 97 H 100 04/07/22 19:59 94 H 100 04/07/22 19:57 105 H 151/90 H 04/07/22 19:54 105 H 100 04/07/22 19:49 94 H 100 04/07/22 19:44 102 H 99 04/07/22 19:43 96 H 139/77 04/07/22 19:39 95 H 99 04/07/22 19:30 18 04/07/22 19:30 18 04/07/22 19:34 96 H 100 Pain Intensity Bilateral Abdomen: Pain Intensity: 0 Transfer of Care Handoff Completed per policy Notes Mental Status: alert / awake / arousable and participated in evaluation Patient Amnestic to Procedure: Yes Nausea / Vomiting: adequately controlled Pain: adequately controlled Airway Patency, RR, SpO2: stable & adequate BP & HR: stable & adequate Hydration State: stable & adequate Neuraxial Anesthesia: was administered, sensory block is resolving and see Notes below Anesthetic Complications: no major complications apparent and Pt Satisfied with anesthetic care Notes: pt epidural was affecting her hands during the case. pt reassessed after the case with good shoulder shrugs and reports that her hands are no longer numb. pt to remain with HOB elevated until the block resolves
[2022-04-08] MEDS: OXYTOCIN 20 UNITS in LACTATED RINGER'S 1,000 ML IV SCH (20:18)
[2022-04-08] MEDS: DOCUSATE SODIUM 100 MG CAP PO SCH (21:01)
[2022-04-08] MEDS: SIMETHICONE 80 MG CHEW PO SCH (21:01)
[2022-04-09] MEDS: OXYTOCIN 20 UNITS in LACTATED RINGER'S 1,000 ML IV SCH (04:24)
[2022-04-09 05:06] LABS: Hematocrit (blood only) 31.7 % (34.1-44.9); Hemoglobin 10.8 g/dl (12.0-16.0); Mean Corpuscular Hemoglobin 29.4 pg (25.0-34.0); Mean Corpuscular Hgb Conc 34.1 g/dL (32.0-36.0); Mean Corpuscular Volume 86.4 fL (80.0-100.0); Mean Platelet Volume 10.7 fL (9.4-12.3); Platelet Count 186 K/uL (130-400); RDW Coefficient of Variation 15.5 % (11.5-14.5); Red Blood Count 3.67 M/uL (3.93-5.22)
[2022-04-09 05:32] LABS: Basophils # (auto) 0.07 K/uL (0-0.2); Basophils % (auto) 0.3 %; Eosinophils # (auto) 0.05 K/uL (0-0.50); Eosinophils % (auto) 0.2 %; Immature Granulocytes # (auto) 0.17 K/uL (0.00-0.02); Immature Granulocytes % (auto) 0.6 %; Lymphocytes # (auto) 1.93 K/uL (1.2-3.4); Lymphocytes % (auto) 7.3 %; Monocytes # (auto) 1.13 K/uL (0.24-0.82); Monocytes % (auto) 4.2 %; Neutrophils # (auto) 23.25 K/uL (1.4-6.5); Neutrophils % (auto) 87.4 %; Polychromasia 1+; Rouleaux 1+
[2022-04-09 05:35] LABS: BUN Creatinine Ratio 13.2 (10-20); Calcium 7.3 mg/dl (8.5-10.1); Creatinine Clr Calc Pharmacy 94.8 ml/min; Est GFR (African American) 64.8 ml/min; Est GFR (Non-African American) 55.9 ml/min; Potassium 4.1 mmol/L (3.5-5.1)
--- NOTE | 2022-04-09 07:46 | Obstetrical Progress Note ---
Date of Service April 09, 2022 Assessment & Plan (1) Morbid obesity: (2) Gestational hypertension: Possibly severe preeclampsia due to creatinine greater than 1.0. However will rule out possible ureteral injury with CT scan. Patient to be placed on magnesium sulfate for seizure prophylaxis if ureteral injury was ruled out. (3) Arrested active phase of labor: Status post delivery (4) Elevated creatine kinase: Was called by nursing staff for decreased urine output of 50 mL over 3 hours, she was given 1 L bolus. Repeat creatinine was ordered which showed it had jumped from 0.7-1.3 at this time. Due to the significant extension from her hysterotomy down to her vagina, and the possibly likelihood of further ureteral injury with suture, CT abdomen pelvis with and without IV contrast was ordered Went to the room to discuss with patient at what happened at time of surgery, as at the time of surgery she had high epidural that caused her to have little memory of what occurred at surgery. I explained due to the delivery of the baby there was a long extension into her vagina that caused her to have a lot of suture placed in the area to create hemostasis. I also had to be assisted by another physician to create adequate hemostasis. Due to the area of where the ureters are in relationship to almost fully dilated cervix, there is additional high risk for ureteral injury. Most likely the injury would be due to a kink, or even suture that placed that would create ligation. Very low suspicion for transection. 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 Explained if there is a ureteral injury, urology will be consulted most likely she would have to have a cystoscopy with possible stent placement. However there is always a possibility that her incision may need to be reopened, and suture cut, or even possibly the ureter replanted. I am unsure at this time but do want to rule out a ureteral injury due to her rise in creatinine. Other causes could be possibly preeclampsia with severe features in which she needs to be on magnesium sulfate. Or even just prerenal such as fluid depletion Patient and her partner were adequately counseled in the room explaining my thought process, and need to do additional work-up. They are in agreement with plan. Patient safe to continue breast-feeding after IV contrast if she desires. Patient voiced her understanding and agreement with the plan. All questions answered in the room Subjective Patient comfortable in bed at this time, Mosley catheter still in place. Bonding well with baby. She is joined in the room with her significant other. Pain has been well controlled Physical Exam Constitutional WD/WN, vitals as above Respiratory normal respiratory effort, lungs clear to auscultation Cardiovascular RRR, no murmur, no edema Gastrointestinal (Abdomen) normal bowel sounds, soft, nontender, no hepatosplenomegaly Incision covered with yen dressing, no acute abdomen felt Results & Data ([facility]) Vital Signs (Past 12 Hours) Vital Signs Temp Pulse Pulse Resp BP BP Pulse Ox 04/09/22 05:10 18 94 04/09/22 04:10 18 94 04/09/22 03:10 18 99 04/09/22 03:10 37.2 C 102 H 18 115/79 99 04/09/22 02:20 18 96 04/09/22 01:30 16 93 04/09/22 00:10 18 99 04/09/22 00:10 37.6 C H 108 H 18 122/80 99 04/08/22 23:10 16 95 04/08/22 22:10 18 99 04/08/22 21:00 18 100 04/08/22 21:00 37.7 C H 106 H 18 147/85 H 100 04/08/22 21:00 04/08/22 20:05 36.8 C 18 04/08/22 20:17 121 H 96 04/08/22 20:12 115 H 140/85 96 04/08/22 20:07 115 H 96 04/08/22 20:02 113 H 96 04/08/22 20:03 114 H 141/91 H 04/08/22 19:57 110 H 97 04/08/22 19:52 108 H 130/78 96 04/08/22 19:47 118 H 96 04/08/22 19:42 107 H 130/70 97 Pulse Ox O2 Del Method O2 Del Method 04/09/22 05:10 04/09/22 04:10 04/09/22 03:10 04/09/22 03:10 Room Air 04/09/22 02:20 04/09/22 01:30 04/09/22 00:10 04/09/22 00:10 Room Air 04/08/22 23:10 04/08/22 22:10 04/08/22 21:00 04/08/22 21:00 Room Air 04/08/22 21:00 100 Room Air 04/08/22 20:05 04/08/22 20:17 04/08/22 20:12 04/08/22 20:07 04/08/22 20:02 04/08/22 20:03 04/08/22 19:57 04/08/22 19:52 04/08/22 19:47 04/08/22 19:42 Laboratory Results White count: 26.6 Hemoglobin/hematocrit 10.8/31.7 Creatinine 1[address] abdomen pelvis with and without IV contrast ordered
[2022-04-09] MEDS: PRENATAL VITAMIN 1 TAB PO SCH (08:31)
[2022-04-09] MEDS: DOCUSATE SODIUM 100 MG CAP PO SCH ×2 (08:32→20:30)
[2022-04-09] MEDS: SIMETHICONE 80 MG CHEW PO SCH ×4 (08:32→20:30)
[2022-04-09] MEDS: FERROUS SULFATE 325 MG TAB PO SCH (08:32)
[2022-04-09] MEDS ORDERED: OPTIRAY 320 500ml IV ONE (09:03)
[2022-04-09 09:20] LABS: Creatinine Urine Random 580.6 mg/dl; Protein Creatinine Ratio Urine 0.2 (0-0.2); Total Protein Urine Random 130.2 mg/dl (0-11.9)
--- NOTE | 2022-04-09 09:50 | CT Scan Report ---
CT OF THE ABDOMEN AND PELVIS WITH AND WITHOUT CONTRAST HEMATURIA PROTOCOL CLINICAL HISTORY: Status post section, possible ureteral injury. COMPARISON STUDY: CT of the abdomen and pelvis March 21, 2021. TECHNIQUE: Unenhanced and split bolus phase imaging of the abdomen and pelvis was performed. Intraven ous injection of 115 cc of Optiray 320 IV was uneventful. Automated exposure control was utilized fo r the study. A dose lowering technique was utilized adhering to the principles of ALARA. 15 minute d elayed phase imaging was also performed for improved ureteral bladder opacification CT DOSE: 5435.21 mGy.cm FINDINGS: Trace bilateral pleural effusions are noted. Subpleural lower lobe opacities are greater on the left. There is interlobular septal thickening. No pneumatosis or portal venous gas is present. L iver, spleen, adrenal glands and pancreas are unremarkable. There is no evidence for a bowel obstruct ion. Trace gas within the epidural space is from recent epidural. As expected, the uterus is enlarged . A small amount of adjacent hemorrhage is present. This is not unexpected. There is gas and fluid wi thin the endometrial canal. Gas and fluid within the anterior abdominal wall is also within normal li mits following recent section. A 3.3 cm right fundal fibroid is present. There is also a 4.1 cm hypoenhancing focus within the right anterior aspect of the uterine body. This could reflect an a dditional fibroid. There are no renal, ureteral or bladder calculi. There is no hydronephrosis or hyd roureter. The left ureter is unremarkable. There is no evidence for injury to the left ureter. Proxim al right ureter is unremarkable. The mid to distal right ureter is not well opacified. However, no ex traluminal contrast is identified. There is trace contrast within the distal right ureter. There is c ontrast and a Mosley balloon within the bladder. IMPRESSION: 1. No hydronephrosis. No convincing evidence for ureteral injury however mid to distal right ureter i s suboptimally assessed on this exam. However, no extraluminal contrast. Normal appearance of the lef t ureter. 2. Expected findings following recent section, as described above. 3. Trace bilateral pleural effusions. Subpleural opacities which favor atelectasis however aspiration pneumonitis or pneumonia could appear similar. 4. Mild interstitial pulmonary edema. ACT 112: Negative or not required by law. Electronically signed by: Bobby Dotson M.D. 04/09/2022 9:48 AM
[2022-04-09] MEDS ORDERED: ZOLPIDEM TARTRATE 5 MG TAB PO PRN (09:51)
[2022-04-09] MEDS ORDERED: diphenhydrAMINE Capsule 25 MG CAP PO PRN (09:51)
[2022-04-09] MEDS ORDERED: ONDANSETRON INJ 2 MG/ML 2 ML VIAL IV PRN (09:51)
[2022-04-09] MEDS ORDERED: PROMETHAZINE HCL 25 MG in SODIUM CHLORIDE 0.9% 50 ML IV PRN (09:51)
[2022-04-09] MEDS ORDERED: KETOROLAC 30 MG/ML VIAL IV PRN (09:51)
[2022-04-09] MEDS ORDERED: diphenhydrAMINE 50 MG/ML VIAL IV PRN (09:51)
[2022-04-09] MEDS: IBUPROFEN 600 MG TAB PO PRN ×3 (14:06→22:38)
--- NOTE | 2022-04-09 16:29 | Obstetrical Progress Note ---
Date of Service April 09, 2022 Assessment & Plan (1) Post-operative state: Plan D/C gordon Repeat labs in AM Subjective Ambulation: limited ambulation Voiding: gordon catheter in place Passing Gas:: Yes Diet Tolerance:: clear liquids Lochia:: Small Feeding Type:: breast feeding Current Pain Level(1-10): 0 Physical Exam Constitutional WD/WN, vitals as above Gastrointestinal (Abdomen) Inspection/Auscultation: abdomen normal to inspection and + abdominal surgical incision Musculoskeletal Extremities: extremities normal to inspection Skin no rashes, warm and dry Neurologic patellar DTR's 2+ bilat, sensation intact Results & Data ([facility]) Vital Signs (Past 12 Hours) Vital Signs Temp Pulse Resp BP Pulse Ox O2 Del Method 04/09/22 15:35 Room Air 04/09/22 15:35 37.8 C H 109 H 18 119/78 96 Room Air 04/09/22 08:00 Room Air 04/09/22 11:40 37.7 C H 102 H 20 120/79 95 Room Air 04/09/22 09:30 18 96 04/09/22 08:15 20 97 04/09/22 07:00 18 94 04/09/22 05:[address] scan shows no evidence of ureteral damage no hydronephrosis
[2022-04-09] MEDS ORDERED: ENOXAPARIN INJ 40 MG/0.4 ML SYR SQ SCH (17:00)
[2022-04-09] MEDS: oxyCODONE/ACETAMINOPHEN 5mg/325mg TAB PO PRN ×2 (18:20→22:38)
[2022-04-09] MEDS ORDERED: bisacodyL 5 MG TABEC PO SCH (20:00)
[2022-04-10] MEDS: oxyCODONE/ACETAMINOPHEN 5mg/325mg TAB PO PRN ×5 (04:03→21:30)
[2022-04-10] MEDS: IBUPROFEN 600 MG TAB PO PRN ×3 (04:03→21:30)
[2022-04-10 04:13] LABS: Basophils # (auto) 0.06 K/uL (0-0.2); Basophils % (auto) 0.2 %; Eosinophils # (auto) 0.35 K/uL (0-0.50); Eosinophils % (auto) 1.4 %; Hematocrit (blood only) 33.6 % (34.1-44.9); Hemoglobin 11.3 g/dl (12.0-16.0); Immature Granulocytes # (auto) 0.24 K/uL (0.00-0.02); Lymphocytes # (auto) 1.94 K/uL (1.2-3.4); Mean Corpuscular Hemoglobin 29.1 pg (25.0-34.0); Mean Corpuscular Hgb Conc 33.6 g/dL (32.0-36.0); Mean Corpuscular Volume 86.6 fL (80.0-100.0); Mean Platelet Volume 10.4 fL (9.4-12.3); Monocytes # (auto) 1.72 K/uL (0.24-0.82); Monocytes % (auto) 7.1 %; Neutrophils # (auto) 19.92 K/uL (1.4-6.5); Neutrophils % (auto) 82.3 %; Platelet Count 215 K/uL (130-400); RDW Coefficient of Variation 15.8 % (11.5-14.5); RDW Standard Deviation 49.5 fL (36.4-46.3); Red Blood Count 3.88 M/uL (3.93-5.22); White Blood Count 24.23 K/ul (4.8-10.8)
[2022-04-10 04:40] LABS: Albumin Level 2.7 gm/dl (3.4-5.0); Bilirubin,Total 0.4 mg/dl (0.2-1.0); Est GFR (African American) 124.8 ml/min; Est GFR (Non-African American) 107.7 ml/min; Globulin 2.6 gm/dl (2.5-4.0); Potassium 3.8 mmol/L (3.5-5.1); Total Protein 5.3 gm/dl (6.0-8.3)
[2022-04-10] MEDS: DOCUSATE SODIUM 100 MG CAP PO SCH ×2 (08:34→21:30)
[2022-04-10] MEDS: FERROUS SULFATE 325 MG TAB PO SCH (08:34)
[2022-04-10] MEDS: SIMETHICONE 80 MG CHEW PO SCH ×4 (08:34→21:30)
--- NOTE | 2022-04-10 10:15 | Obstetrical Progress Note ---
Date of Service April 10, 2022 Subjective Ambulation: ambulating normally Voiding: no voiding problems Passing Gas:: Yes Diet Tolerance:: regular diet Lochia:: Small Feeding Type:: breast feeding Current Pain Level(1-10): 0 doing well Physical Exam Constitutional WD/WN, vitals as above Gastrointestinal (Abdomen) Inspection/Auscultation: abdomen normal to inspection and + abdominal surgical incision Musculoskeletal Extremities: extremities normal to inspection Skin no rashes, warm and dry Neurologic patellar DTR's 2+ bilat, sensation intact Psychiatric A+Ox3, euthymic affect Results & Data ([facility]) Vital Signs (Past 12 Hours) Vital Signs Temp Pulse Resp BP Pulse Ox O2 Del Method 04/10/22 08:40 36.6 C 80 18 130/88 98 Room Air 04/09/22 23:45 36.6 C 92 H 18 128/85 97 Room Air Laboratory Results 04/05/22 04/05/22 04/05/22 08:50 11:17 11:17 WBC 16.52 H RBC 4.17 Hgb 11.9 L Hct 36.0 MCV 86.3 MCH 28.5 MCHC 33.1 RDW Std Deviation 48.6 H RDW Coeff of [place] 15.7 H Plt Count 273 MPV 10.7 Immature Gran % (Auto) Neut % (Auto) Lymph % (Auto) [place] % (Auto) Eos % (Auto) Baso % (Auto) Neut # (Auto) Lymph # (Auto) [place] # (Auto) Eos # (Auto) Baso # (Auto) Immature Gran # (Auto) Polychromasia Rouleaux Cord ABG pH Cord ABG pCO2 Cord ABG pO2 Cord ABG HCO3 Cord ABG Base Excess Cord ABG O2 Sat Cord VBG pH Cord VBG pCO2 Cord VBG pO2 Cord VBG HCO3 Cord VBG Base Excess Cord VBG O2 Sat Blood Gas Comments Sodium Potassium Chloride Carbon Dioxide Anion Gap BUN Creatinine Est Cr Clr Drug Dosing Est GFR ( Amer) Est GFR (Non-Af Amer) BUN/Creatinine Ratio Glucose POC Glucose Gest Fasting Glucose Calcium Total Bilirubin AST ALT Alkaline Phosphatase Total Creatine Kinase Total Protein Albumin Globulin Albumin/Globulin Ratio Ur Random Creatinine U Random Total Protein Protein/Creatinin Ratio SARS-CoV-2, RNA, NAAT NEGATIVE Blood Type A Positive Antibody Screen NEGATIVE 04/05/22 04/05/22 04/05/22 16:05 20:07 23:57 WBC RBC Hgb Hct MCV MCH MCHC RDW Std Deviation RDW Coeff of [place] Plt Count MPV Immature Gran % (Auto) Neut % (Auto) Lymph % (Auto) [place] % (Auto) Eos % (Auto) Baso % (Auto) Neut # (Auto) Lymph # (Auto) [place] # (Auto) Eos # (Auto) Baso # (Auto) Immature Gran # (Auto) Polychromasia Rouleaux Cord ABG pH Cord ABG pCO2 Cord ABG pO2 Cord ABG HCO3 Cord ABG Base Excess Cord ABG O2 Sat Cord VBG pH Cord VBG pCO2 Cord VBG pO2 Cord VBG HCO3 Cord VBG Base Excess Cord VBG O2 Sat Blood Gas Comments Sodium Potassium Chloride Carbon Dioxide Anion Gap BUN Creatinine Est Cr Clr Drug Dosing Est GFR ( Amer) Est GFR (Non-Af Amer) BUN/Creatinine Ratio Glucose POC Glucose 82 77 102 H Gest Fasting Glucose Calcium Total Bilirubin AST ALT Alkaline Phosphatase Total Creatine Kinase Total Protein Albumin Globulin Albumin/Globulin Ratio Ur Random Creatinine U Random Total Protein Protein/Creatinin Ratio SARS-CoV-2, RNA, NAAT Blood Type Antibody Screen 04/06/22 04/06/22 04/06/22 03:54 08:01 12:00 WBC RBC Hgb Hct MCV MCH MCHC RDW Std Deviation RDW Coeff of [place] Plt Count MPV Immature Gran % (Auto) Neut % (Auto) Lymph % (Auto) [place] % (Auto) Eos % (Auto) Baso % (Auto) Neut # (Auto) Lymph # (Auto) [place] # (Auto) Eos # (Auto) Baso # (Auto) Immature Gran # (Auto) Polychromasia Rouleaux Cord ABG pH Cord ABG pCO2 Cord ABG pO2 Cord ABG HCO3 Cord ABG Base Excess Cord ABG O2 Sat Cord VBG pH Cord VBG pCO2 Cord VBG pO2 Cord VBG HCO3 Cord VBG Base Excess Cord VBG O2 Sat Blood Gas Comments Sodium Potassium Chloride Carbon Dioxide Anion Gap BUN Creatinine Est Cr Clr Drug Dosing Est GFR ( Amer) Est GFR (Non-Af Amer) BUN/Creatinine Ratio Glucose POC Glucose 94 81 92 Gest Fasting Glucose Calcium Total Bilirubin AST ALT Alkaline Phosphatase Total Creatine Kinase Total Protein Albumin Globulin Albumin/Globulin Ratio Ur Random Creatinine U Random Total Protein Protein/Creatinin Ratio SARS-CoV-2, RNA, NAAT Blood Type Antibody Screen 04/06/22 04/06/22 04/06/22 15:59 20:02 23:57 WBC RBC Hgb Hct MCV MCH MCHC RDW Std Deviation RDW Coeff of [place] Plt Count MPV Immature Gran % (Auto) Neut % (Auto) Lymph % (Auto) [place] % (Auto) Eos % (Auto) Baso % (Auto) Neut # (Auto) Lymph # (Auto) [place] # (Auto) Eos # (Auto) Baso # (Auto) Immature Gran # (Auto) Polychromasia Rouleaux Cord ABG pH Cord ABG pCO2 Cord ABG pO2 Cord ABG HCO3 Cord ABG Base Excess Cord ABG O2 Sat Cord VBG pH Cord VBG pCO2 Cord VBG pO2 Cord VBG HCO3 Cord VBG Base Excess Cord VBG O2 Sat Blood Gas Comments Sodium Potassium Chloride Carbon Dioxide Anion Gap BUN Creatinine Est Cr Clr Drug Dosing Est GFR ( Amer) Est GFR (Non-Af Amer) BUN/Creatinine Ratio Glucose POC Glucose 128 H 84 85 Gest Fasting Glucose Calcium Total Bilirubin AST ALT Alkaline Phosphatase Total Creatine Kinase Total Protein Albumin Globulin Albumin/Globulin Ratio Ur Random Creatinine U Random Total Protein Protein/Creatinin Ratio SARS-CoV-2, RNA, NAAT Blood Type Antibody Screen 04/07/22 04/07/22 04/07/22 03:32 07:59 11:51 WBC RBC Hgb Hct MCV MCH MCHC RDW Std Deviation RDW Coeff of [place] Plt Count MPV Immature Gran % (Auto) Neut % (Auto) Lymph % (Auto) [place] % (Auto) Eos % (Auto) Baso % (Auto) Neut # (Auto) Lymph # (Auto) [place] # (Auto) Eos # (Auto) Baso # (Auto) Immature Gran # (Auto) Polychromasia Rouleaux Cord ABG pH Cord ABG pCO2 Cord ABG pO2 Cord ABG HCO3 Cord ABG Base Excess Cord ABG O2 Sat Cord VBG pH Cord VBG pCO2 Cord VBG pO2 Cord VBG HCO3 Cord VBG Base Excess Cord VBG O2 Sat Blood Gas Comments Sodium Potassium Chloride Carbon Dioxide Anion Gap BUN Creatinine Est Cr Clr Drug Dosing Est GFR ( Amer) Est GFR (Non-Af Amer) BUN/Creatinine Ratio Glucose POC Glucose 80 91 154 H Gest Fasting Glucose Calcium Total Bilirubin AST ALT Alkaline Phosphatase Total Creatine Kinase Total Protein Albumin Globulin Albumin/Globulin Ratio Ur Random Creatinine U Random Total Protein Protein/Creatinin Ratio SARS-CoV-2, RNA, NAAT Blood Type Antibody Screen 04/07/22 04/07/22 04/07/22 14:58 15:18 16:03 WBC RBC Hgb Hct MCV MCH MCHC RDW Std Deviation RDW Coeff of [place] Plt Count MPV Immature Gran % (Auto) Neut % (Auto) Lymph % (Auto) [place] % (Auto) Eos % (Auto) Baso % (Auto) Neut # (Auto) Lymph # (Auto) [place] # (Auto) Eos # (Auto) Baso # (Auto) Immature Gran # (Auto) Polychromasia Rouleaux Cord ABG pH Cord ABG pCO2 Cord ABG pO2 Cord ABG HCO3 Cord ABG Base Excess Cord ABG O2 Sat Cord VBG pH Cord VBG pCO2 Cord VBG pO2 Cord VBG HCO3 Cord VBG Base Excess Cord VBG O2 Sat Blood Gas Comments Sodium Potassium Chloride Carbon Dioxide Anion Gap BUN Creatinine Est Cr Clr Drug Dosing Est GFR ( Amer) Est GFR (Non-Af Amer) BUN/Creatinine Ratio Glucose POC Glucose 56 L* 61 L* 74 Gest Fasting Glucose Calcium Total Bilirubin AST ALT Alkaline Phosphatase Total Creatine Kinase Total Protein Albumin Globulin Albumin/Globulin Ratio Ur Random Creatinine U Random Total Protein Protein/Creatinin Ratio SARS-CoV-2, RNA, NAAT Blood Type Antibody Screen 04/07/22 04/07/22 04/07/22 19:59 20:00 20:21 WBC RBC Hgb Hct MCV MCH MCHC RDW Std Deviation RDW Coeff of [place] Plt Count MPV Immature Gran % (Auto) Neut % (Auto) Lymph % (Auto) [place] % (Auto) Eos % (Auto) Baso % (Auto) Neut # (Auto) Lymph # (Auto) [place] # (Auto) Eos # (Auto) Baso # (Auto) Immature Gran # (Auto) Polychromasia Rouleaux Cord ABG pH Cord ABG pCO2 Cord ABG pO2 Cord ABG HCO3 Cord ABG Base Excess Cord ABG O2 Sat Cord VBG pH Cord VBG pCO2 Cord VBG pO2 Cord VBG HCO3 Cord VBG Base Excess Cord VBG O2 Sat Blood Gas Comments Sodium Potassium Chloride Carbon Dioxide Anion Gap BUN Creatinine Est Cr Clr Drug Dosing Est GFR ( Amer) Est GFR (Non-Af Amer) BUN/Creatinine Ratio Glucose POC Glucose 59 L* 63 L* 69 L* Gest Fasting Glucose Calcium Total Bilirubin AST ALT Alkaline Phosphatase Total Creatine Kinase Total Protein Albumin Globulin Albumin/Globulin Ratio Ur Random Creatinine U Random Total Protein Protein/Creatinin Ratio SARS-CoV-2, RNA, NAAT Blood Type Antibody Screen 04/07/22 04/08/22 04/08/22 20:22 00:01 00:02 WBC RBC Hgb Hct MCV MCH MCHC RDW Std Deviation RDW Coeff of [place] Plt Count MPV Immature Gran % (Auto) Neut % (Auto) Lymph % (Auto) [place] % (Auto) Eos % (Auto) Baso % (Auto) Neut # (Auto) Lymph # (Auto) [place] # (Auto) Eos # (Auto) Baso # (Auto) Immature Gran # (Auto) Polychromasia Rouleaux Cord ABG pH Cord ABG pCO2 Cord ABG pO2 Cord ABG HCO3 Cord ABG Base Excess Cord ABG O2 Sat Cord VBG pH Cord VBG pCO2 Cord VBG pO2 Cord VBG HCO3 Cord VBG Base Excess Cord VBG O2 Sat Blood Gas Comments Sodium Potassium Chloride Carbon Dioxide Anion Gap BUN Creatinine Est Cr Clr Drug Dosing Est GFR ( Amer) Est GFR (Non-Af Amer) BUN/Creatinine Ratio Glucose POC Glucose 73 67 L* 62 L* Gest Fasting Glucose Calcium Total Bilirubin AST ALT Alkaline Phosphatase Total Creatine Kinase Total Protein Albumin Globulin Albumin/Globulin Ratio Ur Random Creatinine U Random Total Protein Protein/Creatinin Ratio SARS-CoV-2, RNA, NAAT Blood Type Antibody Screen 04/08/22 04/08/22 04/08/22 00:23 04:07 07:40 WBC RBC Hgb Hct MCV MCH MCHC RDW Std Deviation RDW Coeff of [place] Plt Count MPV Immature Gran % (Auto) Neut % (Auto) Lymph % (Auto) [place] % (Auto) Eos % (Auto) Baso % (Auto) Neut # (Auto) Lymph # (Auto) [place] # (Auto) Eos # (Auto) Baso # (Auto) Immature Gran # (Auto) Polychromasia Rouleaux Cord ABG pH Cord ABG pCO2 Cord ABG pO2 Cord ABG HCO3 Cord ABG Base Excess Cord ABG O2 Sat Cord VBG pH Cord VBG pCO2 Cord VBG pO2 Cord VBG HCO3 Cord VBG Base Excess Cord VBG O2 Sat Blood Gas Comments Sodium Potassium Chloride Carbon Dioxide Anion Gap BUN Creatinine Est Cr Clr Drug Dosing Est GFR ( Amer) Est GFR (Non-Af Amer) BUN/Creatinine Ratio Glucose POC Glucose 72 76 Gest Fasting Glucose Calcium Total Bilirubin AST ALT Alkaline Phosphatase Total Creatine Kinase Total Protein Albumin Globulin Albumin/Globulin Ratio Ur Random Creatinine U Random Total Protein Protein/Creatinin Ratio SARS-CoV-2, RNA, NAAT Blood Type A Positive Antibody Screen NEGATIVE 04/08/22 04/08/22 04/08/22 08:15 10:39 10:39 WBC 20.42 H RBC 4.07 Hgb 11.8 L Hct 35.4 MCV 87.0 MCH 29.0 MCHC 33.3 RDW Std Deviation 49.8 H RDW Coeff of [place] 15.6 H Plt Count 222 MPV 10.6 Immature Gran % (Auto) Neut % (Auto) Lymph % (Auto) [place] % (Auto) Eos % (Auto) Baso % (Auto) Neut # (Auto) Lymph # (Auto) [place] # (Auto) Eos # (Auto) Baso # (Auto) Immature Gran # (Auto) Polychromasia Rouleaux Cord ABG pH Cord ABG pCO2 Cord ABG pO2 Cord ABG HCO3 Cord ABG Base Excess Cord ABG O2 Sat Cord VBG pH Cord VBG pCO2 Cord VBG pO2 Cord VBG HCO3 Cord VBG Base Excess Cord VBG O2 Sat Blood Gas Comments Sodium 136 Potassium 4.0 Chloride 106 Carbon Dioxide 22 Anion Gap 8 BUN 10 Creatinine 0.74 Est Cr Clr Drug Dosing 165.2 Est GFR ( Amer) 126.9 Est GFR (Non-Af Amer) 109.5 BUN/Creatinine Ratio 13.5 Glucose 84 POC Glucose 88 Gest Fasting Glucose Calcium 7.7 L Total Bilirubin AST ALT Alkaline Phosphatase Total Creatine Kinase Total Protein Albumin Globulin Albumin/Globulin Ratio Ur Random Creatinine U Random Total Protein Protein/Creatinin Ratio SARS-CoV-2, RNA, NAAT Blood Type Antibody Screen 04/08/22 04/08/22 04/08/22 12:10 15:26 15:26 WBC RBC Hgb Hct MCV MCH MCHC RDW Std Deviation RDW Coeff of [place] Plt Count MPV Immature Gran % (Auto) Neut % (Auto) Lymph % (Auto) [place] % (Auto) Eos % (Auto) Baso % (Auto) Neut # (Auto) Lymph # (Auto) [place] # (Auto) Eos # (Auto) Baso # (Auto) Immature Gran # (Auto) Polychromasia Rouleaux Cord ABG pH 7.17 Cord ABG pCO2 61 Cord ABG pO2 12 Cord ABG HCO3 22 Cord ABG Base Excess -7.4 Cord ABG O2 Sat < 60.0 Cord VBG pH 7.27 Cord VBG pCO2 52 Cord VBG pO2 16 Cord VBG HCO3 24 Cord VBG Base Excess -3.8 Cord VBG O2 Sat < 60.0 Blood Gas Comments TIM TIM Sodium Potassium Chloride Carbon Dioxide Anion Gap BUN Creatinine Est Cr Clr Drug Dosing Est GFR ( Amer) Est GFR (Non-Af Amer) BUN/Creatinine Ratio Glucose POC Glucose 83 Gest Fasting Glucose Calcium Total Bilirubin AST ALT Alkaline Phosphatase Total Creatine Kinase Total Protein Albumin Globulin Albumin/Globulin Ratio Ur Random Creatinine U Random Total Protein Protein/Creatinin Ratio SARS-CoV-2, RNA, NAAT Blood Type Antibody Screen 04/08/22 04/08/22 04/09/22 15:54 Unknown 05:00 WBC RBC Hgb Hct MCV MCH MCHC RDW Std Deviation RDW Coeff of [place] Plt Count MPV Immature Gran % (Auto) Neut % (Auto) Lymph % (Auto) [place] % (Auto) Eos % (Auto) Baso % (Auto) Neut # (Auto) Lymph # (Auto) [place] # (Auto) Eos # (Auto) Baso # (Auto) Immature Gran # (Auto) Polychromasia Rouleaux Cord ABG pH Cord ABG pCO2 Cord ABG pO2 Cord ABG HCO3 Cord ABG Base Excess Cord ABG O2 Sat Cord VBG pH Cord VBG pCO2 Cord VBG pO2 Cord VBG HCO3 Cord VBG Base Excess Cord VBG O2 Sat Blood Gas Comments Sodium 129 L Potassium 4.1 Chloride 102 Carbon Dioxide 20 L Anion Gap 7 BUN 17 Creatinine 1.29 H D Est Cr Clr Drug Dosing 94.8 Est GFR ( Amer) 64.8 Est GFR (Non-Af Amer) 55.9 BUN/Creatinine Ratio 13.2 Glucose 81 POC Glucose 75 Gest Fasting Glucose 81 Calcium 7.3 L Total Bilirubin AST ALT Alkaline Phosphatase Total Creatine Kinase Total Protein Albumin Globulin Albumin/Globulin Ratio Ur Random Creatinine 136.7 U Random Total Protein 19.7 H Protein/Creatinin Ratio 0.1 SARS-CoV-2, RNA, NAAT Blood Type Antibody Screen 04/09/22 04/09/22 04/09/22 05:00 09:31 Unknown WBC 26.60 H RBC 3.67 L Hgb 10.8 L Hct 31.7 L MCV 86.4 MCH 29.4 MCHC 34.1 RDW Std Deviation 49.0 H RDW Coeff of [place] 15.5 H Plt Count 186 MPV 10.7 Immature Gran % (Auto) 0.6 Neut % (Auto) 87.4 Lymph % (Auto) 7.3 [place] % (Auto) 4.2 Eos % (Auto) 0.2 Baso % (Auto) 0.3 Neut # (Auto) 23.25 H Lymph # (Auto) 1.93 [place] # (Auto) 1.13 H Eos # (Auto) 0.05 Baso # (Auto) 0.07 Immature Gran # (Auto) 0.17 H Polychromasia 1+ Rouleaux 1+ Cord ABG pH Cord ABG pCO2 Cord ABG pO2 Cord ABG HCO3 Cord ABG Base Excess Cord ABG O2 Sat Cord VBG pH Cord VBG pCO2 Cord VBG pO2 Cord VBG HCO3 Cord VBG Base Excess Cord VBG O2 Sat Blood Gas Comments Sodium Potassium Chloride Carbon Dioxide Anion Gap BUN Creatinine Est Cr Clr Drug Dosing Est GFR ( Amer) Est GFR (Non-Af Amer) BUN/Creatinine Ratio Glucose POC Glucose Gest Fasting Glucose Calcium Total Bilirubin AST ALT Alkaline Phosphatase Total Creatine Kinase 196 H Total Protein Albumin Globulin Albumin/Globulin Ratio Ur Random Creatinine 580.6 U Random Total Protein 130.2 H Protein/Creatinin Ratio 0.2 SARS-CoV-2, RNA, NAAT Blood Type Antibody Screen 04/10/22 04/10/22 03:52 03:52 WBC 24.23 H RBC 3.88 L Hgb 11.3 L Hct 33.6 L MCV 86.6 MCH 29.1 MCHC 33.6 RDW Std Deviation 49.5 H RDW Coeff of [place] 15.8 H Plt Count 215 MPV 10.4 Immature Gran % (Auto) 1.0 Neut % (Auto) 82.3 Lymph % (Auto) 8.0 [place] % (Auto) 7.1 Eos % (Auto) 1.4 Baso % (Auto) 0.2 Neut # (Auto) 19.92 H Lymph # (Auto) 1.94 [place] # (Auto) 1.72 H Eos # (Auto) 0.35 Baso # (Auto) 0.06 Immature Gran # (Auto) 0.24 H Polychromasia Rouleaux Cord ABG pH Cord ABG pCO2 Cord ABG pO2 Cord ABG HCO3 Cord ABG Base Excess Cord ABG O2 Sat Cord VBG pH Cord VBG pCO2 Cord VBG pO2 Cord VBG HCO3 Cord VBG Base Excess Cord VBG O2 Sat Blood Gas Comments Sodium 138 D Potassium 3.8 Chloride 108 H Carbon Dioxide 24 Anion Gap 6 BUN 15 Creatinine 0.75 D Est Cr Clr Drug Dosing 163.0 Est GFR ( Amer) 124.8 Est GFR (Non-Af Amer) 107.7 BUN/Creatinine Ratio 20.0 Glucose 100 H POC Glucose Gest Fasting Glucose 100 H Calcium 8.0 L Total Bilirubin 0.4 AST 19 ALT 12 Alkaline Phosphatase 74 Total Creatine Kinase Total Protein 5.3 L Albumin 2.7 L Globulin 2.6 Albumin/Globulin Ratio 1.0 Ur Random Creatinine U Random Total Protein Protein/Creatinin Ratio SARS-CoV-2, RNA, NAAT Blood Type Antibody Screen
[2022-04-10] MEDS ORDERED: bisacodyL 10 MG SUPP PR PRN (16:27)
[2022-04-11] MEDS: oxyCODONE/ACETAMINOPHEN 5mg/325mg TAB PO PRN ×3 (02:23→13:09)
[2022-04-11 07:02] LABS: Basophils # (auto) 0.08 K/uL (0-0.2); Basophils % (auto) 0.4 %; Eosinophils # (auto) 0.46 K/uL (0-0.50); Eosinophils % (auto) 2.2 %; Hematocrit (blood only) 33.9 % (34.1-44.9); Hemoglobin 11.2 g/dl (12.0-16.0); Immature Granulocytes # (auto) 0.16 K/uL (0.00-0.02); Immature Granulocytes % (auto) 0.8 %; Lymphocytes # (auto) 2.71 K/uL (1.2-3.4); Mean Corpuscular Hemoglobin 29.1 pg (25.0-34.0); Mean Corpuscular Volume 88.1 fL (80.0-100.0); Mean Platelet Volume 10.3 fL (9.4-12.3); Monocytes # (auto) 1.13 K/uL (0.24-0.82); Monocytes % (auto) 5.4 %; Neutrophils % (auto) 78.2 %; Platelet Count 275 K/uL (130-400); RDW Coefficient of Variation 15.9 % (11.5-14.5); RDW Standard Deviation 51.1 fL (36.4-46.3); Red Blood Count 3.85 M/uL (3.93-5.22); White Blood Count 20.84 K/ul (4.8-10.8)
[2022-04-11] MEDS: FERROUS SULFATE 325 MG TAB PO SCH (07:22)
[2022-04-11] MEDS: SIMETHICONE 80 MG CHEW PO SCH ×2 (07:22→13:08)
[2022-04-11] MEDS: PRENATAL VITAMIN 1 TAB PO SCH (07:22)
[2022-04-11] MEDS: DOCUSATE SODIUM 100 MG CAP PO SCH (07:22)
[2022-04-11 07:24] LABS: Albumin Globulin Ratio 0.9 (0.9-2); Albumin Level 2.7 gm/dl (3.4-5.0); BUN Creatinine Ratio 13.9 (10-20); Bilirubin,Total 0.4 mg/dl (0.2-1.0); Calcium 7.7 mg/dl (8.5-10.1); Creatinine Clr Calc Pharmacy 169.8 ml/min; Est GFR (African American) 131.2 ml/min; Est GFR (Non-African American) 113.2 ml/min; Potassium 3.7 mmol/L (3.5-5.1); Total Protein 5.7 gm/dl (6.0-8.3)
[2022-04-11] MEDS: IBUPROFEN 600 MG TAB PO PRN ×2 (08:43→13:09)
[2022-04-11 09:26] LABS: Basophils # (auto) 0.09 K/uL (0-0.2); Basophils % (auto) 0.4 %; Eosinophils # (auto) 0.44 K/uL (0-0.50); Eosinophils % (auto) 2.1 %; Hematocrit (blood only) 34.6 % (34.1-44.9); Hemoglobin 11.3 g/dl (12.0-16.0); Immature Granulocytes % (auto) 0.5 %; Lymphocytes # (auto) 2.22 K/uL (1.2-3.4); Lymphocytes % (auto) 10.6 %; Mean Corpuscular Hemoglobin 28.8 pg (25.0-34.0); Mean Corpuscular Hgb Conc 32.7 g/dL (32.0-36.0); Mean Platelet Volume 10.3 fL (9.4-12.3); Monocytes # (auto) 1.07 K/uL (0.24-0.82); Monocytes % (auto) 5.1 %; Neutrophils # (auto) 17.09 K/uL (1.4-6.5); Neutrophils % (auto) 81.3 %; Platelet Count 276 K/uL (130-400); RDW Coefficient of Variation 15.9 % (11.5-14.5); RDW Standard Deviation 51.7 fL (36.4-46.3); Red Blood Count 3.93 M/uL (3.93-5.22); White Blood Count 21.01 K/ul (4.8-10.8)
--- NOTE | 2022-04-11 09:29 | Obstetrical Progress Note ---
Date of Service April 11, 2022 Assessment & Plan Admission and Anticipated Discharge Date Admission Date: April 05, 2022 Subjective Patient is seen and examined. She feels well, no complaints other than being sore. Pain is under control with oral meds. Ambulating without dizziness Voiding without difficulty Tolerating regular diet with out N&V Flatus + BM neg Bleeding is minimal No fever/ chills/ CP/ SOB/ N&V/ Leg pain Breast and bottle feeding without problems Vital Signs Temp Pulse Pulse Resp BP BP Pulse Ox 04/11/22 07:10 36.8 C 99 H 20 131/88 95 04/10/22 23:20 36.8 C 106 H 18 141/93 H 98 04/10/22 20:00 36.9 C 103 H 18 146/94 H 99 04/10/22 15:10 36.9 C 96 H 18 138/90 O2 Del Method 04/11/22 07:10 Room Air 04/10/22 23:20 Room Air 04/10/22 20:00 Room Air 04/10/22 15:10 Room Air Abnormal lab results 04/11/22 04/11/22 Range/Units 06:40 06:40 WBC 20.84 H (4.8-10.8) K/ul RBC 3.85 L (3.93-5.22) M/uL Hgb 11.2 L (12.0-16.0) g/dl Hct 33.9 L (34.1-44.9) % RDW Std Deviation 51.1 H (36.4-46.3) fL RDW Coeff of [place] 15.9 H (11.5-14.5) % Neut # (Auto) 16.30 H (1.4-6.5) K/uL [place] # (Auto) 1.13 H (0.24-0.82) K/uL Immature Gran # (Auto) 0.16 H (0.00-0.02) K/uL Glucose 67 L (70-99(Fasting)) mg/dl Gest Fasting Glucose 67 L (70-91) mg/dl Calcium 7.7 L (8.5-10.1) mg/dl Total Protein 5.7 L (6.0-8.3) gm/dl Albumin 2.7 L (3.4-5.0) gm/dl PE: General: Alert, orientedx3, NAD CVS: S1S2 RRR Lungs; CTAB Abd: soft, appropriately tender, ND, BS+, fundus firm, below Umbilicus Incision/ EVARISTO Dressing: Clean, dry, intact Perineum intact, Lochia rubra minimal Ext; NT, 2+/2+ edema BL, SCD's on, Homans sig neg/ neg AP: 31 yo s/p Primary C Section after long IOL/ Labor, arrest of dilatation,on 12 afternoon, pod# 3 VSS Afebrile doing well Had low grade fever not reaching 38 Elevated WBCC Received preop Cefazolin and Azithromycin once Occasional Elevated BP's Plan to run more labs Continue routine postop care Encourage ambulation, PO intake All questions were answered Desires D/C home today Results & Data ([facility]) Vital Signs (Past 12 Hours) Vital Signs Temp Pulse Pulse Resp BP Pulse Ox O2 Del Method 04/11/22 07:10 36.8 C 99 H 20 131/88 95 Room Air 04/10/22 23:20 36.8 C 106 H 18 141/93 H 98 Room Air
[2022-04-11] MEDS: cephALEXin 500 MG CAP PO SCH ×2 (09:36→13:09)
[2022-04-11 09:51] LABS: Albumin Level 2.8 gm/dl (3.4-5.0); BUN Creatinine Ratio 14.3 (10-20); Bilirubin,Total 0.3 mg/dl (0.2-1.0); Calcium 7.7 mg/dl (8.5-10.1); Creatinine Clr Calc Pharmacy 174.6 ml/min; Est GFR (African American) 135.7 ml/min; Est GFR (Non-African American) 117.1 ml/min; Globulin 2.9 gm/dl (2.5-4.0); Potassium 3.9 mmol/L (3.5-5.1); Total Protein 5.7 gm/dl (6.0-8.3)
[2022-04-11] MEDS ORDERED: metroNIDAZOLE 500 MG TAB PO SCH (10:15)
--- NOTE | 2022-04-11 10:20 | Obstetrical Progress Note ---
Date of Service April 11, 2022 Assessment & Plan Admission and Anticipated Discharge Date Admission Date: April 05, 2022 Subjective Patient is reevaluated She feels well, wants to be discharged Discussed the labs and AB for d/c Discussed signs of infection and when to call All questions were answered. f/u at office in 3-4 days Results & Data ([facility]) Vital Signs (Past 12 Hours) Vital Signs Temp Pulse Pulse Resp BP Pulse Ox O2 Del Method 04/11/22 07:10 36.8 C 99 H 20 131/88 95 Room Air 04/10/22 23:20 36.8 C 106 H 18 141/93 H 98 Room Air
--- NOTE | 2022-04-12 06:46 | Discharge Summary ---
Date of Service April 12, 2022 Admission HPI Per Admitting Provider Patient is a 31-year-old who was admitted 04/05/2022 for induction of labor at 39 weeks for class III obesity, and gestational diabetes. On admission she was fingertip, and received 1 dose of Cytotec and made minimal change and a Cervidil was placed. And received Cytotec's for additional cervical ripening. The bulb was then placed for cervical dilation, made it to 3 cm dilated and oxytocin was started for augmentation. She made it to 9 cm dilated this morning, made no cervical change for over 6 hours despite inadequate contractions. Counseled for primary delivery for arrest of active phase of labor Admission Exam (Per Admitting) Constitutional WD/WN, vitals as above Respiratory normal respiratory effort, lungs clear to auscultation Cardiovascular RRR, no murmur, no edema Discharge Data Procedures Performed Operation Date: 04/08/22 13:50 Actual Procedures p Section in LD(Bilateral) - Mey Jacob MD, PhD Hospital Course (1) Post-operative state: Underwent 1LTCS with extension into vagina. Noted increase in creatinine after deliver and concern for possible uteral injury from CD. CT A/P was negative for ureteral injury Went home on POD 3 on abx for suspected chorio
== END 2022-04-11 15:05 | disposition home or self-care (01) | DRG 786 ==
LOC: 4S1 08:02 → 4E2 04-08 20:46

== ENCOUNTER 2022-04-18 15:36 | Inpatient (IN) ==
[2022-04-18 18:04] LABS: Basophils # (auto) 0.12 K/uL (0-0.2); Basophils % (auto) 0.8 %; Eosinophils # (auto) 0.32 K/uL (0-0.50); Eosinophils % (auto) 2.1 %; Hematocrit (blood only) 33.7 % (34.1-44.9); Immature Granulocytes # (auto) 0.34 K/uL (0.00-0.02); Immature Granulocytes % (auto) 2.2 %; Lymphocytes % (auto) 15.7 %; Mean Corpuscular Hemoglobin 28.9 pg (25.0-34.0); Mean Corpuscular Hgb Conc 32.6 g/dL (32.0-36.0); Mean Corpuscular Volume 88.5 fL (80.0-100.0); Monocytes # (auto) 0.77 K/uL (0.24-0.82); Neutrophils # (auto) 11.36 K/uL (1.4-6.5); Neutrophils % (auto) 74.2 %; Platelet Count 486 K/uL (130-400); RDW Standard Deviation 51.8 fL (36.4-46.3); Red Blood Count 3.81 M/uL (3.93-5.22); White Blood Count 15.31 K/ul (4.8-10.8)
[2022-04-18 18:25] LABS: Partial Thromboplastin Time 26.3 Seconds (21.0-31.0); Prothrombin Time 10.8 Seconds (9.0-12.0)
[2022-04-18 18:36] LABS: Albumin Level 3.3 gm/dl (3.4-5.0); BUN Creatinine Ratio 21.3 (10-20); Bilirubin,Total 0.4 mg/dl (0.2-1.0); Calcium 7.9 mg/dl (8.5-10.1); Est GFR (Non-African American) 122.5 ml/min; Globulin 3.4 gm/dl (2.5-4.0); Magnesium 1.7 mg/dl (1.7-2.4); Potassium 4.1 mmol/L (3.5-5.1); Total Protein 6.7 gm/dl (6.0-8.3)
--- NOTE | 2022-04-18 19:10 | XRay Report ---
XR chest 1V portable CLINICAL HISTORY: SOB TECHNIQUE: Single frontal radiograph of the chest was obtained. Comparison: Comparison is made to chest radiograph 05/14/2020 FINDINGS: Exam is limited by underpenetration. Cardiomegaly is noted. Prominence and cephalization of the vascu lature is seen. No evidence of pleural effusion or pneumothorax. IMPRESSION: Cardiomegaly and mild pulmonary edema. ACT 112: Negative or not required by law. Electronically signed by: Christo Castañeda M.D. 04/18/2022 7:09 PM
[2022-04-18] MEDS ORDERED: OPTIRAY 320 500ml IV ONE (19:50)
--- NOTE | 2022-04-18 20:09 | CT Scan Report ---
CT angio chest PE protocol CLINICAL HISTORY: SOB, 10 days , r/o PE TECHNIQUE: Multidetector row helical CT of the chest was performed with angiographic protocol. Suarez l and sagittal reformations were obtained. Coronal and sagittal MIPS were obtained from the axial natasha a set and were submitted for review. Automated dose lowering techniques and/or adjustment according to patient size were utilized for this exam. CT DOSE: 910.32 mGy.cm Comparison: Comparison is made to chest radiograph 04/18/2022 FINDINGS: Lungs and pleura: Small bilateral pleural effusions are seen. Atelectasis is noted in the lung bases. No suspicious pulmonary nodules. Heart and pericardium: Cardiomegaly is seen with biatrial enlargement. Vessels: No evidence of pulmonary embolism. Mediastinum and bia: Unremarkable. Chest wall and lower neck: Subcentimeter axillary lymph nodes noted. Abdomen: Unremarkable. Bones: Degenerative changes in the thoracic spine. IMPRESSION: 1. No evidence of pulmonary embolism. 2. Small bilateral pleural effusions with associated atelectasis. ACT 112: Negative or not required by law. Electronically signed by: Christo Castañeda M.D. 04/18/2022 8:06 PM
[2022-04-18] MEDS ORDERED: FUROSEMIDE INJ 20 MG/2 ML VIAL IV ONE (21:31)
--- NOTE | 2022-04-19 01:09 | OB/GYN Consultation ---
Date of Consultation April 19, 2022 Assessment & Plan (1) Post-operative state: (2) Status post section: 31-year-old G1, P1 who is status post primary on April 08 due to arrest of dilatation, failed induction, history of gestational hypertension, gestational diabetes and morbid obesity, Presenting with elevated blood pressures, shortness of breath and chest discomfort Found to have cardiomegaly and pleural effusions by imaging and no signs of pulmonary embolus, Recommended admission and echocardiogram, I spoke with the hospitalist on-call Dr. Archuleta who recommended to admit her under medicine and consult cardiology and plan is a recommendations, Patient is breast and bottlefeeding, I think short course of loop diuretics are okay to use for edema, All questions were answered, (3) Bilateral lower extremity edema: (4) Cardiomegaly: (5) Pleural effusion: (6) hypertension: History of Present Illness History of Present Illness Patient is an 31-year-old -0-0-1 who is status post primary on April 08 for failed induction of labor, arrest of dilatation of cervix in active phase of labor, gestational hypertension, gestational diabetes, obesity during . She was admitted 3 days before for induction of labor. Multiple agents were used for cervical ripening, despite artificial rupture of membranes and adequate contractions, her cervix is unchanged and decision was made to proceed with primary . Her surgery was uncomplicated. Her blood pressures were stable and she has not required antihypertensives during admission. She was then discharge on April 11 on postop day #3. He was then seen in the office on postop day #7 for removal of yen dressing and blood pressure check. Her blood pressure was slightly elevated and she was not treated. She presented to ER yesterday with increasing chest pain and shortness of breath and increased lower extremity edema for the last 2 days. Her blood pressure was elevated in severe range when she first presented. She was given 1 dose of IV Lasix her blood pressure improved but still stayed elevated since. Checks x-ray and CT of the chest showed the following: FINDINGS: Exam is limited by underpenetration. Cardiomegaly is noted. Prominence and cephalization of the vasculature is seen. No evidence of pleural effusion or pneumothorax. IMPRESSION: Cardiomegaly and mild pulmonary edema. IMPRESSION: 1. No evidence of pulmonary embolism. 2. Small bilateral pleural effusions with associated atelectasis. She denies headaches, change in vision, nausea vomiting, epigastric or right upper quadrant pain. Her incision pain has been mild and she has not been taking Percocet for pain. She has been breast and bottle and feeding, 50/50%. Her baby has been doing well and gaining weight. Her vaginal bleeding is minimal and incision has been healing well with no drainage nor bleeding. Upon findings above I was called by ER physician for recommendations and admission. I discussed with the patient's and recommended admission and she agreed. I then called hospitalists on-call Dr. Archuleta who recommended to admit under medicine department and consult cardiology for possible cardiomyopathy. Allergies Allergy/AdvReac Type Severity Reaction Status Date / Time amoxicillin Allergy Intermediate Hives Verified 04/18/22 20:21 Home Medications Medication Instructions Recorded Confirmed Type cephalexin 500 mg capsule 500 mg PO QID #28 caps 04/11/22 04/18/22 Rx ibuprofen 600 mg tablet 600 mg PO Q6H PRN pain #60 tabs 04/11/22 04/18/22 Rx metronidazole 500 mg tablet 500 mg PO BID #14 tabs 04/11/22 04/18/22 Rx aspirin 81 mg tablet,delayed 81 mg PO DAILY 04/18/22 04/18/22 History release vits no.124-ferrous fum 1 tab PO QAM 04/18/22 04/18/22 History 27 mg iron-folic acid 800 mcg tablet ( Vitamin) Patient History Medical History Asthma GDM (gestational diabetes mellitus) Migraine without aura Morbid obesity Surgical History History of wisdom tooth extraction Family History Family/Other Breast cancer Father Myocardial infarction Daughter No problems noted. Grandfather Myocardial infarction Denies family history of Ovarian cancer Prostate cancer Colorectal cancer Social History Smoking Status: Never smoker Second Hand Exposure: No; Hx Alcohol Use: No Hx Substance Use: No Preferred Language: Grenadian Communication Ability: Effective Slab Tripper Required: No Beliefs That Will Affect Care: None marital status: Current Living Situation: Spouse Current Living Situation Comment: - Ace, 3 dogs Feels Safe at Home: Yes Assistive Devices: None Review of Systems Constitutional: as per Subjective / HPI Physical Exam Constitutional: well developed, + obese and + edematous Gastrointestinal (Abdomen): normal bowel sounds, soft, nontender, no hepatosplenomegaly (Incision is healing, clean, dry intact. I covered it with clean pad.) Musculoskeletal: Extremities: + lower extremity abnormal to inspection Bilateral (3+ edema, Homans' sign negative bilaterally) Results & Data ([facility]) Vital Signs (Past 12 Hours) Vital Signs Temp Pulse Pulse Resp BP BP Pulse Ox 04/19/22 00:50 92 H 21 97 04/19/22 00:45 97 H 24 98 04/19/22 00:45 151/106 H 04/19/22 00:40 94 H 25 H 98 04/19/22 00:30 93 H 18 97 04/19/22 00:30 158/112 H 04/19/22 00:22 96 H 22 98 04/19/22 00:42 110 H 158/112 H 98 04/19/22 00:19 91 H 16 153/107 H 98 04/18/22 18:03 04/18/22 15:53 36.9 C 103 H 19 161/119 H 98 O2 Del Method 04/19/22 00:50 04/19/22 00:45 04/19/22 00:45 04/19/22 00:40 04/19/22 00:30 04/19/22 00:30 04/19/22 00:22 04/19/22 00:42 Room Air 04/19/22 00:19 Room Air 04/18/22 18:03 Room Air 04/18/22 15:53 Room Air Laboratory Results 04/18/22 04/18/22 04/18/22 Range/Units Unknown 17:49 17:49 WBC (4.8-10.8) K/ul RBC (3.93-5.22) M/uL Hgb (12.0-16.0) g/dl Hct (34.1-44.9) % MCV (80.0-100.0) fL MCH (25.0-34.0) pg MCHC (32.0-36.0) g/dL RDW Std Deviation (36.4-46.3) fL RDW Coeff of [place] (11.5-14.5) % Plt Count (130-400) K/uL MPV (9.4-12.3) fL Immature Gran % (Auto) % Neut % (Auto) % Lymph % (Auto) % [place] % (Auto) % Eos % (Auto) % Baso % (Auto) % Neut # (Auto) (1.4-6.5) K/uL Lymph # (Auto) (1.2-3.4) K/uL [place] # (Auto) (0.24-0.82) K/uL Eos # (Auto) (0-0.50) K/uL Baso # (Auto) (0-0.2) K/uL Immature Gran # (Auto) (0.00-0.02) K/uL PT 10.8 (9.0-12.0) Seconds INR 1.0 (0.9-1.1) APTT 26.3 (21.0-31.0) Seconds PTT Ratio 1.0 Sodium 140 (136-145) mmol/L Potassium 4.1 (3.5-5.1) mmol/L Chloride 107 (98-107) mmol/L Carbon Dioxide 26 (21-32) mmol/L Anion Gap 7 (3-11) BUN 13 (6-23) mg/dl Creatinine 0.61 (0.6-1.2) mg/dl Est Cr Clr Drug Dosing 194.0 ml/min Est GFR ( Amer) 142.0 ml/min Est GFR (Non-Af Amer) 122.5 ml/min BUN/Creatinine Ratio 21.3 H (10-20) Glucose 69 L (70-99(Fasting)) mg/dl Calcium 7.9 L (8.5-10.1) mg/dl Magnesium 1.7 (1.7-2.4) mg/dl Total Bilirubin 0.4 (0.2-1.0) mg/dl AST 33 (13-39) U/L ALT 34 (7-52) U/L Alkaline Phosphatase 72 (34-104) U/L Troponin I High Sens 8.0 (0-14) pg/ml B-Natriuretic Peptide 268 H (0-100) pg/ml Total Protein 6.7 (6.0-8.3) gm/dl Albumin 3.3 L (3.4-5.0) gm/dl Globulin 3.4 (2.5-4.0) gm/dl Albumin/Globulin Ratio 1.0 (0.9-2) 04/18/22 Range/Units 17:49 WBC 15.31 H (4.8-10.8) K/ul RBC 3.81 L (3.93-5.22) M/uL Hgb 11.0 L (12.0-16.0) g/dl Hct 33.7 L (34.1-44.9) % MCV 88.5 (80.0-100.0) fL MCH 28.9 (25.0-34.0) pg MCHC 32.6 (32.0-36.0) g/dL RDW Std Deviation 51.8 H (36.4-46.3) fL RDW Coeff of [place] 16.0 H (11.5-14.5) % Plt Count 486 H (130-400) K/uL MPV 9.0 L (9.4-12.3) fL Immature Gran % (Auto) 2.2 % Neut % (Auto) 74.2 % Lymph % (Auto) 15.7 % [place] % (Auto) 5.0 % Eos % (Auto) 2.1 % Baso % (Auto) 0.8 % Neut # (Auto) 11.36 H (1.4-6.5) K/uL Lymph # (Auto) 2.40 (1.2-3.4) K/uL [place] # (Auto) 0.77 (0.24-0.82) K/uL Eos # (Auto) 0.32 (0-0.50) K/uL Baso # (Auto) 0.12 (0-0.2) K/uL Immature Gran # (Auto) 0.34 H (0.00-0.02) K/uL PT (9.0-12.0) Seconds INR (0.9-1.1) APTT (21.0-31.0) Seconds PTT Ratio Sodium (136-145) mmol/L Potassium (3.5-5.1) mmol/L Chloride (98-107) mmol/L Carbon Dioxide (21-32) mmol/L Anion Gap (3-11) BUN (6-23) mg/dl Creatinine (0.6-1.2) mg/dl Est Cr Clr Drug Dosing ml/min Est GFR ( Amer) ml/min Est GFR (Non-Af Amer) ml/min BUN/Creatinine Ratio (10-20) Glucose (70-99(Fasting)) mg/dl Calcium (8.5-10.1) mg/dl Magnesium (1.7-2.4) mg/dl Total Bilirubin (0.2-1.0) mg/dl AST (13-39) U/L ALT (7-52) U/L Alkaline Phosphatase (34-104) U/L Troponin I High Sens (0-14) pg/ml B-Natriuretic Peptide (0-100) pg/ml Total Protein (6.0-8.3) gm/dl Albumin (3.4-5.0) gm/dl Globulin (2.5-4.0) gm/dl Albumin/Globulin Ratio (0.9-2)
[2022-04-19] MEDS: MAGNESIUM SULFATE / D5W 1 GM/100 ML BAG IV SCH ×2 (01:27→03:18)
--- NOTE | 2022-04-19 02:03 | Emergency Department Note ---
Impression & Plan Hypervolemia, hypertension, Pleural effusion, bilateral ED Provider Note NAME: ELIZA GONZALEZ AGE: 31 SEX: F ARRIVES VIA: Walk-In INFORMANT: Patient ED PROVIDER(S): West Grimes MD CHIEF COMPLAINT: Edema, SOB. PLAN: Disposition: Admit MEDICAL DECISION MAKING: The patient is a pleasant 31-year-old woman, G1, P1, 10 days post following following arrest of labor following IOL who presents to the emergency department referred from her OB office for evaluation of worsening shortness of breath and edema since her discharge. The patient denies chest pain per se but does feel chest tightness. She reports her edema was present when she was in the hospital but has not improved and her shortness of breath has progressed. She denies any personal or family history of blood clots. She denies any WOODALL, changes in vision, fevers, chills, GI or symptoms. She reports having some mild nonproductive cough when she lay flat. Of note, the patient did arrive to emergency department during time of high volume, acuity and prolonged emergency department waiting times. Critical pathways initiated from triage. On my evaluation, the patient is no acute distress, afebrile with heart rate in the 100s and blood pressure 160s/110s. O2 saturation is 98% on room air with normal respiratory effort. She does appear hypervolemic with diminished breath sounds of bilateral lung bases and 3+ pitting edema of bilateral lower extremities. There is no discoloration or tenderness. EKG without overt acute ischemia. CXR with vascular congestion and nonspecific interstitial thickening. WBC 15.3 improved from prior values during her hospitalization. H/H similar to prior range values. Platelets 486K nonspecific and in setting of the patient's status. Chemistry without metabolic acidosis. Electrolytes without significant abnormality. LFTs are normal. High-sensitivity troponin 8.0, within normal limits. BNP is elevated at 268, nonspecific but consistent with the patient's hypervolemic appearance. CTA of the chest was performed and was negative for PE. Note is made of small bilateral pleural effusions with associated atelectasis which were present on CT of the abdomen pelvis on 04/09 during her hospitalization. Otherwise, no pulmonary edema is noted. The patient was treated with 20 mg of IV Lasix and had subsequently substantial urination/diuresis. She reports she was starting to feel better in terms of the heaviness in her legs and dyspnea. I did perform a limited bedside cardiac ultr asound which did not demonstrate any overt reduction in EF. Small bilateral pleural effusions noted. Unfortunately, the patient's blood pressure did remain elevated though marginally improved to the 150s/100s. Case was discussed with [facility] OB on-call, Dr. Borges. Appreciate consultation/recommendations. Given continued elevated blood pressures agrees with plan for admission for further management. Okay with short-term diuresis. Upon her consultation with [facility] hospitalist service, Dr. Epstein, the patient will be admitted to their service for further evaluation and management Triage Nursing notes reviewed and agree them. Prior medical records reviewed Vital Signs: reviewed Differential diagnosis: Reactive airway disease, pneumonia, pneumothorax, COPD, CHF, infections, cardiac ischemia, pulmonary embolism, musculoskeletal, gastrointestinal, as well as other pathologies. ER treatment provided: See below. Diagnostics interpreted by me: ECG: Sinus rhythm, 99 bpm, no ectopy, nonspecific T wave abnormality, no overt ST elevation or depression, QTC 436, QRS 72. Cardiac Monitoring: An order for continuous cardiac monitoring was placed and demonstrated sinus rhythm, 99 bpm, no ectopy. Laboratory studies: See below Imaging studies: See below Consultation(s): Dr. Borges, [facility] CUSTOMER CARE ASSISTANT. HPI: The patient is a pleasant 31-year-old woman, G1, P1, 10 days post following following arrest of labor following IOL who presents to the emergency department referred from her OB office for evaluation of worsening shortness of breath and edema since her discharge. The patient denies chest pain per se but does feel chest tightness. She reports her edema was present when she was in the hospital but has not improved and her shortness of breath has progressed. She denies any personal or family history of blood clots. She denies any WOODALL, changes in vision, fevers, chills, GI or symptoms. She reports having some mild nonproductive cough when she lay flat. ROS: See above HPI for pertinent positives & negatives. A total of 10 systems reviewed and were otherwise negative. VITALS:See Below PHYSICAL EXAMINATION: GENERAL: Awake, alert, well-appearing, in no distress, BMI 48.7. HENT: Normocephalic, atraumatic. Oropharynx unremarkable. EYES: Normal conjunctiva. Sclera non-icteric. NECK: Supple. No nuchal rigidity. FROM. No JVD. RESPIRATORY: Diminished breath sounds of bilateral lung bases. Otherwise, clear to auscultation. CARDIAC: Regular rate, normal rhythm. Extremities warm and well perfused. Pulses equal. ABDOMEN: Soft, non-distended. No tenderness to palpation. No rebound or guarding. No masses. RECTAL: Deferred. MUSCULOSKELETAL: Chest examination reveals no tenderness. The back is symm etrical on inspection without obvious abnormality. There is no CVA tenderness to palpation. No joint edema. LOWER EXTREMITIES: Calves are equal size bilaterally and non-tender. 3+ BLE pitting edema. No discoloration. NEURO: Normal sensorium. No sensory or motor deficits noted. SKIN: No rash or jaundice noted. West Grimes MD Past Med/Surg History Medical History Asthma GDM (gestational diabetes mellitus) Migraine without aura Morbid obesity Surgical History History of wisdom tooth extraction Family History Family/Other Breast cancer Father Myocardial infarction Daughter No problems noted. Grandfather Myocardial infarction Denies family history of Ovarian cancer Prostate cancer Colorectal cancer Social History Smoking Status: Never smoker Second Hand Exposure: No; Hx Alcohol Use: No Hx Substance Use: No Preferred Language: Setswana Communication Ability: Effective Outreach Counselor Required: No Beliefs That Will Affect Care: None marital status: Current Living Situation: Spouse Current Living Situation Comment: - [place], [place] dogs Feels Safe at Home: Yes Assistive Devices: None Allergies Allergies Allergy/AdvReac Type Severity Reaction Status Date / Time amoxicillin Allergy Intermediate Hives Verified 04/18/22 20:21 Home Meds Home Medications Medication Instructions Recorded Confirmed aspirin 81 mg tablet,delayed 81 mg PO DAILY 04/18/22 04/18/22 release vits no.124-ferrous fum 1 tab PO QAM 04/18/22 04/18/22 27 mg iron-folic acid 800 mcg tablet ( Vitamin) Previous Rx's Medication Instructions Recorded cephalexin 500 mg capsule 500 mg PO QID #28 caps 04/11/22 ibuprofen 600 mg tablet 600 mg PO Q6H PRN pain #60 tabs 04/11/22 metronidazole 500 mg tablet 500 mg PO BID #14 tabs 04/11/22 Results & Data (ED) Vital Signs Vital Signs - 24 hr 04/18/22 15:53 04/18/22 18:03 04/19/22 00:19 Temperature 36.9 C Temperature Source Temporal Artery Scan Pulse Rate 103 H Pulse Rate [Apical] 91 H Pulse Rate from SpO2 Sensor Respiratory Rate 19 16 Respiratory Effort / Characteristics Non-Labored Spontaneous Non-Labored Respiratory Depth Normal Normal Respiratory Pattern Regular Blood Pressure 161/119 H Blood Pressure [Left Arm] 153/107 H Blood Pressure Mean 133 Blood Pressure Mean [Left Arm] 122 Blood Pressure Position [Left Arm] Lying Pulse Oximetry 98 98 Oxygen Delivery Method Room Air Room Air Room Air Sepsis Recent Fever Within 48 Hours No Sepsis New/Unexplained Change in Mental Status N/A Sepsis Action Taken by Nursing No Action Required 04/19/22 00:42 04/19/22 00:22 04/19/22 00:30 Temperature Temperature Source Pulse Rate 96 H Pulse Rate [Apical] 110 H Pulse Rate from SpO2 Sensor 96 H Respiratory Rate 22 Respiratory Effort / Characteristics Respiratory Depth Respiratory Pattern Blood Pressure 158/112 H Blood Pressure [Left Arm] 158/112 H Blood Pressure Mean 127 Blood Pressure Mean [Left Arm] 127 Blood Pressure Position [Left Arm] Lying Pulse Oximetry 98 98 Oxygen Delivery Method Room Air Sepsis Recent Fever Within 48 Hours Sepsis New/Unexplained Change in Mental Status Sepsis Action Taken by Nursing 04/19/22 00:30 04/19/22 00:40 04/19/22 00:45 Temperature Temperature Source Pulse Rate 93 H 94 H Pulse Rate [Apical] Pulse Rate from SpO2 Sensor 93 H 94 H Respiratory Rate 18 25 H Respiratory Effort / Characteristics Respiratory Depth Respiratory Pattern Blood Pressure 151/106 H Blood Pressure [Left Arm] Blood Pressure Mean 121 Blood Pressure Mean [Left Arm] Blood Pressure Position [Left Arm] Pulse Oximetry 97 98 Oxygen Delivery Method Sepsis Recent Fever Within 48 Hours Sepsis New/Unexplained Change in Mental Status Sepsis Action Taken by Nursing 04/19/22 00:45 04/19/22 00:50 04/19/22 01:00 Temperature Temperature Source Pulse Rate 97 H 92 H Pulse Rate [Apical] Pulse Rate from SpO2 Sensor 98 H 92 H Respiratory Rate 24 21 Respiratory Effort / Characteristics Respiratory Depth Respiratory Pattern Blood Pressure 164/107 H Blood Pressure [Left Arm] Blood Pressure Mean 126 Blood Pressure Mean [Left Arm] Blood Pressure Position [Left Arm] Pulse Oximetry 98 97 Oxygen Delivery Method Sepsis Recent Fever Within 48 Hours Sepsis New/Unexplained Change in Mental Status Sepsis Action Taken by Nursing 04/19/22 01:00 04/19/22 01:38 04/19/22 01:32 Temperature Temperature Source Pulse Rate 90 93 H Pulse Rate [Apical] 86 Pulse Rate from SpO2 Sensor 91 H Respiratory Rate 19 16 21 Respiratory Effort / Characteristics Non-Labored Respiratory Depth Normal Respiratory Pattern Regular Blood Pressure Blood Pressure [Left Arm] 156/107 H Blood Pressure Mean Blood Pressure Mean [Left Arm] 123 Blood Pressure Position [Left Arm] Lying Pulse Oximetry 96 96 Oxygen Delivery Method Room Air Sepsis Recent Fever Within 48 Hours Sepsis New/Unexplained Change in Mental Status Sepsis Action Taken by Nursing 04/19/22 01:33 04/19/22 01:33 04/19/22 01:40 Temperature Temperature Source Pulse Rate 86 85 Pulse Rate [Apical] Pulse Rate from SpO2 Sensor 86 86 Respiratory Rate 18 20 Respiratory Effort / Characteristics Respiratory Depth Respiratory Pattern Blood Pressure 156/107 H Blood Pressure [Left Arm] Blood Pressure Mean 123 Blood Pressure Mean [Left Arm] Blood Pressure Position [Left Arm] Pulse Oximetry 98 96 Oxygen Delivery Method Sepsis Recent Fever Within 48 Hours Sepsis New/Unexplained Change in Mental Status Sepsis Action Taken by Nursing 04/19/22 01:45 04/19/22 01:45 04/19/22 01:50 Temperature Temperature Source Pulse Rate 86 100 H Pulse Rate [Apical] Pulse Rate from SpO2 Sensor 86 99 H Respiratory Rate 18 18 Respiratory Effort / Characteristics Respiratory Depth Respiratory Pattern Blood Pressure 165/113 H Blood Pressure [Left Arm] Blood Pressure Mean 130 Blood Pressure Mean [Left Arm] Blood Pressure Position [Left Arm] Pulse Oximetry 96 98 Oxygen Delivery Method Sepsis Recent Fever Within 48 Hours Sepsis New/Unexplained Change in Mental Status Sepsis Action Taken by Nursing Laboratory Data Attestation: I reviewed the patient's lab results. Result diagrams: 04/18/22 17:49 04/18/22 17:49 Lab Results 04/18/22 04/18/22 04/18/22 Range/Units 17:49 17:49 17:49 WBC 15.31 H (4.8-10.8) K/ul RBC 3.81 L (3.93-5.22) M/uL Hgb 11.0 L (12.0-16.0) g/dl Hct 33.7 L (34.1-44.9) % MCV 88.5 (80.0-100.0) fL MCH 28.9 (25.0-34.0) pg MCHC 32.6 (32.0-36.0) g/dL RDW Std Deviation 51.8 H (36.4-46.3) fL RDW Coeff of [place] 16.0 H (11.5-14.5) % Plt Count 486 H (130-400) K/uL MPV 9.0 L (9.4-12.3) fL Immature Gran % (Auto) 2.2 % Neut % (Auto) 74.2 % Lymph % (Auto) 15.7 % [place] % (Auto) 5.0 % Eos % (Auto) 2.1 % Baso % (Auto) 0.8 % Neut # (Auto) 11.36 H (1.4-6.5) K/uL Lymph # (Auto) 2.40 (1.2-3.4) K/uL [place] # (Auto) 0.77 (0.24-0.82) K/uL Eos # (Auto) 0.32 (0-0.50) K/uL Baso # (Auto) 0.12 (0-0.2) K/uL Immature Gran # (Auto) 0.34 H (0.00-0.02) K/uL PT 10.8 (9.0-12.0) Seconds INR 1.0 (0.9-1.1) APTT 26.3 (21.0-31.0) Seconds PTT Ratio 1.0 Sodium 140 (136-145) mmol/L Potassium 4.1 (3.5-5.1) mmol/L Chloride 107 (98-107) mmol/L Carbon Dioxide 26 (21-32) mmol/L Anion Gap 7 (3-11) BUN 13 (6-23) mg/dl Creatinine 0.61 (0.6-1.2) mg/dl Est Cr Clr Drug Dosing 194.0 ml/min Est GFR ( Amer) 142.0 ml/min Est GFR (Non-Af Amer) 122.5 ml/min BUN/Creatinine Ratio 21.3 H (10-20) Glucose 69 L (70-99(Fasting)) mg/dl Calcium 7.9 L (8.5-10.1) mg/dl Magnesium 1.7 (1.7-2.4) mg/dl Total Bilirubin 0.4 (0.2-1.0) mg/dl AST 33 (13-39) U/L ALT 34 (7-52) U/L Alkaline Phosphatase 72 (34-104) U/L Troponin I High Sens 8.0 (0-14) pg/ml B-Natriuretic Peptide (0-100) pg/ml Total Protein 6.7 (6.0-8.3) gm/dl Albumin 3.3 L (3.4-5.0) gm/dl Globulin 3.4 (2.5-4.0) gm/dl Albumin/Globulin Ratio 1.0 (0.9-2) TSH (0.300-4.500) uIu/ml SARS-CoV-2, RNA, NAAT (NEGATIVE) 04/18/22 04/18/22 04/19/22 Range/Units 17:49 Unknown 00:54 WBC (4.8-10.8) K/ul RBC (3.93-5.22) M/uL Hgb (12.0-16.0) g/dl Hct (34.1-44.9) % MCV (80.0-100.0) fL MCH (25.0-34.0) pg MCHC (32.0-36.0) g/dL RDW Std Deviation (36.4-46.3) fL RDW Coeff of [place] (11.5-14.5) % Plt Count (130-400) K/uL MPV (9.4-12.3) fL Immature Gran % (Auto) % Neut % (Auto) % Lymph % (Auto) % [place] % (Auto) % Eos % (Auto) % Baso % (Auto) % Neut # (Auto) (1.4-6.5) K/uL Lymph # (Auto) (1.2-3.4) K/uL [place] # (Auto) (0.24-0.82) K/uL Eos # (Auto) (0-0.50) K/uL Baso # (Auto) (0-0.2) K/uL Immature Gran # (Auto) (0.00-0.02) K/uL PT (9.0-12.0) Seconds INR (0.9-1.1) APTT (21.0-31.0) Seconds PTT Ratio Sodium (136-145) mmol/L Potassium (3.5-5.1) mmol/L Chloride (98-107) mmol/L Carbon Dioxide (21-32) mmol/L Anion Gap (3-11) BUN (6-23) mg/dl Creatinine (0.6-1.2) mg/dl Est Cr Clr Drug Dosing ml/min Est GFR ( Amer) ml/min Est GFR (Non-Af Amer) ml/min BUN/Creatinine Ratio (10-20) Glucose (70-99(Fasting)) mg/dl Calcium (8.5-10.1) mg/dl Magnesium (1.7-2.4) mg/dl Total Bilirubin (0.2-1.0) mg/dl AST (13-39) U/L ALT (7-52) U/L Alkaline Phosphatase (34-104) U/L Troponin I High Sens (0-14) pg/ml B-Natriuretic Peptide 268 H (0-100) pg/ml Total Protein (6.0-8.3) gm/dl Albumin (3.4-5.0) gm/dl Globulin (2.5-4.0) gm/dl Albumin/Globulin Ratio (0.9-2) TSH 6.658 H (0.300-4.500) uIu/ml SARS-CoV-2, RNA, NAAT NEGATIVE (NEGATIVE) Administered Medications Magnesium Sulfate/Dextrose (Magnesium Sulfate / D5w) 1 gm in 100 mls @ 50 mls/hr IV Q2H QUINCY Stop: 04/19/22 04:59 Last Admin: 04/19/22 01:27 Dose: 50 mls/hr Documented By: MUKESH Discontinued Medications Furosemide (Furosemide Inj 20 Mg/2 Ml Vial) 20 mg IV ONE ONE Stop: 04/18/22 21:32 Last Admin: 04/18/22 22:17 Dose: 20 mg Documented By: CAMPOS Ioversol (Optiray 320 500ml) 110 ml IV ONCE ONE Stop: 04/18/22 19:51 Last Admin: 04/18/22 19:56 Dose: 110 ml Documented By: [facility] Imaging Data Radiologist's Impression: Chest X-Ray 04/18/22 15:57 XR chest 1V portable CLINICAL HISTORY: SOB TECHNIQUE: Single frontal radiograph of the chest was obtained. Comparison: Comparison is made to chest radiograph 05/14/2020 FINDINGS: Exam is limited by underpenetration. Cardiomegaly is noted. Prominence and cephalization of the vasculature is seen. No evidence of pleural effusion or pneumothorax. IMPRESSION: Cardiomegaly and mild pulmonary edema. ACT 112: Negative or not required by law. Electronically signed by: Christo Castañeda M.D. 04/18/2022 7:09 PM Chest CTA 04/18/22 19:22 CT angio chest PE protocol CLINICAL HISTORY: SOB, 10 days , r/o PE TECHNIQUE: Multidetector row helical CT of the chest was performed with angiographic protocol. Coronal and sagittal reformations were obtained. Coronal and sagittal MIPS were obtained from the axial data set and were submitted for review. Automated dose lowering techniques and/or adjustment according to patient size were utilized for this exam. CT DOSE: 910.32 mGy.cm Comparison: Comparison is made to chest radiograph 04/18/2022 FINDINGS: Lungs and pleura: Small bilateral pleural effusions are seen. Atelectasis is noted in the lung bases. No suspicious pulmonary nodules. Heart and pericardium: Cardiomegaly is seen with biatrial enlargement. Vessels: No evidence of pulmonary embolism. Mediastinum and bia: Unremarkable. Chest wall and lower neck: Subcentimeter axillary lymph nodes noted. Abdomen: Unremarkable. Bones: Degenerative changes in the thoracic spine. IMPRESSION: 1. No evidence of pulmonary embolism. 2. Small bilateral pleural effusions with associated atelectasis. ACT 112: Negative or not required by law. Electronically signed by: Christo Castañeda M.D. 04/18/2022 8:06 PM Discharge Plan Visit Data Chief Complaint: Referred by Doctor Stated Complaint: SHORTNESS OF BREATH, SWELLING IN LEGS, LUNG ISSUE ED Provider: West Grimes Discharge Problem: Hypervolemia, hypertension, Pleural effusion, bilateral Forms Stand Alone Forms: [facility] [place] [facility] Prescriptions Prescriptions: No Action ibuprofen 600 mg Tablet 600 mg PO Q6H PRN (Reason: pain) Qty: 60 0RF cephalexin 500 mg Capsule 500 mg PO QID Qty: 28 0RF Rx Instructions: STARTED 04/11/22 FOR 7 DAYS. metronidazole 500 mg Tablet 500 mg PO BID Qty: 14 0RF Rx Instructions: STARTED 04/11/22 FOR 7 DAYS aspirin 81 mg Tablet,Delayed Release (Dr/Ec) 81 mg PO DAILY Vitamin 27 mg iron- 800 mcg tablet 1 tab PO QAM Referrals Referrals: Robert Gilliland DO [Primary Care Provider] -
[2022-04-19 02:15] LABS: Thyroid Stimulating Hormone 6.658 uIu/ml (0.300-4.500)
[2022-04-19] MEDS ORDERED: METOPROLOL TARTRATE 25 MG TAB PO STA (02:17)
--- NOTE | 2022-04-19 02:18 | History & Physical Report ---
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 Boogie, dam tender assistant on-call. Text document was generated using [employer] voice recognition software. It may contain grammatical or spelling errors. Kindly contact undersigned for clarification of any documentation item in question. History of Present Illness Chief Complaint: Shortness of breath, leg swelling Primary Care Provider: Robert Gilliland, History obtained from patient and records. Medical history significant for gestational DM, morbid obesity. Recent confinement April 05 to 2021 under OB service for childbirth. Primigravida admitted for induction of labor. Patient on aspirin prophylaxis given risk factors for preeclampsia as per patient. Subsequent section done on April 08, 2022 due to arrest of active phase of labor. Shortness of breath, orthopnea, leg swelling, and fluid retention symptoms noted by patient during peripartum period. Decreased urine output after delivery as per patient. CT abdomen pelvis done to rule out injury as per patient. CT report from 04/09 as follows. 1. No hydronephrosis. No convincing evidence for ureteral injury however mid to distal right ureter is suboptimally assessed on this exam. However, no extraluminal contrast. Normal appearance of the left ureter. 2. Expected findings following recent section, as described above. 3. Trace bilateral pleural effusions. Subpleural opacities which favor atelectasis however aspiration pneumonitis or pneumonia could appear similar. 4. Mild interstitial pulmonary edema. Persistent shortness of breath and fluid retention symptoms even upon return home. No actual chest pain. No cough symptoms. Elevated BP SBP 140s on outpatient OB follow-up 4 days ago. Patient directed to ER due to worsening symptoms. IV Lasix administered at the ER for CHF. Medical History as above Surgical History : section, dental surgery Family History : Heart disease, DM, alcoholism, esophageal cancer, asthma Personal/Social history : Non-smoker, no EtOH intake, [facility] [employer] Allergies Allergy/AdvReac Type Severity Reaction Status Date / Time amoxicillin Allergy Intermediate Hives Verified 04/18/22 20:21 Home Medications Medication Instructions Recorded Confirmed Type cephalexin 500 mg capsule 500 mg PO QID #28 caps 04/11/22 04/18/22 Rx ibuprofen 600 mg tablet 600 mg PO Q6H PRN pain #60 tabs 04/11/22 04/18/22 Rx metronidazole 500 mg tablet 500 mg PO BID #14 tabs 04/11/22 04/18/22 Rx aspirin 81 mg tablet,delayed 81 mg PO DAILY 04/18/22 04/18/22 History release vits no.124-ferrous fum 1 tab PO QAM 04/18/22 04/18/22 History 27 mg iron-folic acid 800 mcg tablet ( Vitamin) Past Med/Surg History Medical History Asthma GDM (gestational diabetes mellitus) Migraine without aura Morbid obesity Surgical History History of wisdom tooth extraction Family History Family/Other Breast cancer Father Myocardial infarction Daughter No problems noted. Grandfather Myocardial infarction Denies family history of Ovarian cancer Prostate cancer Colorectal cancer Social History Smoking Status: Never smoker Second Hand Exposure: No; Hx Alcohol Use: No Hx Substance Use: No Preferred Language: Montserratian Communication Ability: Effective [employer] Required: No Beliefs That Will Affect Care: None marital status: Current Living Situation: Spouse Current Living Situation Comment: - Ace, 3 dogs Feels Safe at Home: Yes Safety Concerns: Feels Safe At This Time Assistive Devices: None Review of Systems Review of Systems: As per HPI, all other systems reviewed and negative Physical Exam Physical Exam: GENERAL: Comfortable, pleasant, morbidly obese, no respiratory distress SKIN: Pallor, warm HEENT: Pale palpebral conjunctivae, no ptosis, dry buccal mucosa NECK : Supple, short neck, no tenderness CHEST : Decreased breath sounds, no tenderness HEART : Tachycardic, no obvious murmurs ABDOMEN: Some distention, nontender EXTREMITIES : Bilateral LE swelling, no LE tenderness, no other conspicuous deformities noted NEUROLOGIC : Coherent, no facial asymmetry, no other gross focality Results & Data Results & Data ([facility]) Vital Signs (Past 12 Hours) Vital Signs Temp Pulse Pulse Resp BP BP Pulse Ox 04/19/22 01:50 100 H 18 98 04/19/22 01:45 165/113 H 04/19/22 01:45 86 18 96 04/19/22 01:40 85 20 96 04/19/22 01:33 156/107 H 04/19/22 01:33 86 18 98 04/19/22 01:32 93 H 21 04/19/22 01:38 86 16 156/107 H 96 04/19/22 01:00 90 19 96 04/19/22 01:00 164/107 H 04/19/22 00:50 92 H 21 97 04/19/22 00:45 97 H 24 98 04/19/22 00:45 151/106 H 04/19/22 00:40 94 H 25 H 98 04/19/22 00:30 93 H 18 97 04/19/22 00:30 158/112 H 04/19/22 00:22 96 H 22 98 04/19/22 00:42 110 H 158/112 H 98 04/19/22 00:19 91 H 16 153/107 H 98 04/18/22 18:03 04/18/22 15:53 36.9 C 103 H 19 161/119 H 98 O2 Del Method 04/19/22 01:50 04/19/22 01:45 04/19/22 01:45 04/19/22 01:40 04/19/22 01:33 04/19/22 01:33 04/19/22 01:32 04/19/22 01:38 Room Air 04/19/22 01:00 04/19/22 01:00 04/19/22 00:50 04/19/22 00:45 04/19/22 00:45 04/19/22 00:40 04/19/22 00:30 04/19/22 00:30 04/19/22 00:22 04/19/22 00:42 Room Air 04/19/22 00:19 Room Air 04/18/22 18:03 Room Air 04/18/22 15:53 Room Air Laboratory Results Laboratory Results WBC 15.31 K/ul (4.8-10.8) H 04/18/22 17:49 RBC 3.81 M/uL (3.93-5.22) L 04/18/22 17:49 Hgb 11.0 g/dl (12.0-16.0) L 04/18/22 17:49 Hct 33.7 % (34.1-44.9) L 04/18/22 17:49 MCV 88.5 fL (80.0-100.0) 04/18/22 17:49 MCH 28.9 pg (25.0-34.0) 04/18/22 17:49 MCHC 32.6 g/dL (32.0-36.0) 04/18/22 17:49 RDW Std Deviation 51.8 fL (36.4-46.3) H 04/18/22 17:49 RDW Coeff of [place] 16.0 % (11.5-14.5) H 04/18/22 17:49 Plt Count 486 K/uL (130-400) H 04/18/22 17:49 MPV 9.0 fL (9.4-12.3) L 04/18/22 17:49 Immature Gran % (Auto) 2.2 % 04/18/22 17:49 Neut % (Auto) 74.2 % 04/18/22 17:49 Lymph % (Auto) 15.7 % 04/18/22 17:49 [place] % (Auto) 5.0 % 04/18/22 17:49 Eos % (Auto) 2.1 % 04/18/22 17:49 Baso % (Auto) 0.8 % 04/18/22 17:49 Neut # (Auto) 11.36 K/uL (1.4-6.5) H 04/18/22 17:49 Lymph # (Auto) 2.40 K/uL (1.2-3.4) 04/18/22 17:49 [place] # (Auto) 0.77 K/uL (0.24-0.82) 04/18/22 17:49 Eos # (Auto) 0.32 K/uL (0-0.50) 04/18/22 17:49 Baso # (Auto) 0.12 K/uL (0-0.2) 04/18/22 17:49 Immature Gran # (Auto) 0.34 K/uL (0.00-0.02) H 04/18/22 17:49 PT 10.8 Seconds (9.0-12.0) 04/18/22 17:49 INR 1.0 (0.9-1.1) 04/18/22 17:49 APTT 26.3 Seconds (21.0-31.0) 04/18/22 17:49 PTT Ratio 1.0 04/18/22 17:49 Sodium 140 mmol/L (136-145) 04/18/22 17:49 Potassium 4.1 mmol/L (3.5-5.1) 04/18/22 17:49 Chloride 107 mmol/L (98-107) 04/18/22 17:49 Carbon Dioxide 26 mmol/L (21-32) 04/18/22 17:49 Anion Gap 7 (3-11) 04/18/22 17:49 BUN 13 mg/dl (6-23) 04/18/22 17:49 Creatinine 0.61 mg/dl (0.6-1.2) 04/18/22 17:49 Est Cr Clr Drug Dosing 194.0 ml/min 04/18/22 17:49 Est GFR ( Amer) 142.0 ml/min 04/18/22 17:49 Est GFR (Non-Af Amer) 122.5 ml/min 04/18/22 17:49 BUN/Creatinine Ratio 21.3 (10-20) H 04/18/22 17:49 Glucose 69 mg/dl (70-99(Fasting)) L 04/18/22 17:49 Calcium 7.9 mg/dl (8.5-10.1) L 04/18/22 17:49 Magnesium 1.7 mg/dl (1.7-2.4) 04/18/22 17:49 Total Bilirubin 0.4 mg/dl (0.2-1.0) 04/18/22 17:49 AST 33 U/L (13-39) 04/18/22 17:49 ALT 34 U/L (7-52) 04/18/22 17:49 Alkaline Phosphatase 72 U/L (34-104) 04/18/22 17:49 Troponin I High Sens 8.0 pg/ml (0-14) 04/18/22 17:49 B-Natriuretic Peptide 268 pg/ml (0-100) H 04/18/22 Unknown Total Protein 6.7 gm/dl (6.0-8.3) 04/18/22 17:49 Albumin 3.3 gm/dl (3.4-5.0) L 04/18/22 17:49 Globulin 3.4 gm/dl (2.5-4.0) 04/18/22 17:49 Albumin/Globulin Ratio 1.0 (0.9-2) 04/18/22 17:49 TSH 6.658 uIu/ml (0.300-4.500) H 04/18/22 17:49 SARS-CoV-2, RNA, NAAT NEGATIVE (NEGATIVE) 04/19/22 00:54 Impressions Chest X-Ray 04/18/22 15:57 XR chest 1V portable CLINICAL HISTORY: SOB TECHNIQUE: Single frontal radiograph of the chest was obtained. Comparison: Comparison is made to chest radiograph 05/14/2020 FINDINGS: Exam is limited by underpenetration. Cardiomegaly is noted. Prominence and c ephalization of the vasculature is seen. No evidence of pleural effusion or pneumothorax. IMPRESSION: Cardiomegaly and mild pulmonary edema. ACT 112: Negative or not required by law. Electronically signed by: Christo Castañeda M.D. 04/18/2022 7:09 PM Chest CTA 04/18/22 19:22 CT angio chest PE protocol CLINICAL HISTORY: SOB, 10 days , r/o PE TECHNIQUE: Multidetector row helical CT of the chest was performed with angiographic protocol. Coronal and sagittal reformations were obtained. Coronal and sagittal MIPS were obtained from the axial data set and were submitted for review. Automated dose lowering techniques and/or adjustment according to patient size were utilized for this exam. CT DOSE: 910.32 mGy.cm Comparison: Comparison is made to chest radiograph 04/18/2022 FINDINGS: Lungs and pleura: Small bilateral pleural effusions are seen. Atelectasis is noted in the lung bases. No suspicious pulmonary nodules. Heart and pericardium: Cardiomegaly is seen with biatrial enlargement. Vessels: No evidence of pulmonary embolism. Mediastinum and bia: Unremarkable. Chest wall and lower neck: Subcentimeter axillary lymph nodes noted. Abdomen: Unremarkable. Bones: Degenerative changes in the thoracic spine. IMPRESSION: 1. No evidence of pulmonary embolism. 2. Small bilateral pleural effusions with associated atelectasis. ACT 112: Negative or not required by law. Electronically signed by: Christo Castañeda M.D. 04/18/2022 8:06 PM Diagnostic Findings EKG as per my interpretation : Rate 100, NSR, normal axis, short MD, T wave abnormality septal leads
[2022-04-19 03:11] LABS: T4 Free Thyroxine 0.73 ng/dl (0.61-1.60)
[2022-04-19] MEDS ORDERED: ONDANSETRON INJ 2 MG/ML 2 ML VIAL IV PRN (03:34)
[2022-04-19] MEDS ORDERED: ACETAMINOPHEN 325 MG TAB PO PRN (03:34)
[2022-04-19] MEDS ORDERED: ACETAMINOPHEN W/CODEINE #3 1 TAB PO PRN (03:34)
[2022-04-19 07:58] LABS: Basophils # (auto) 0.11 K/uL (0-0.2); Basophils % (auto) 0.7 %; Eosinophils # (auto) 0.28 K/uL (0-0.50); Eosinophils % (auto) 1.9 %; Hematocrit (blood only) 32.4 % (34.1-44.9); Hemoglobin 10.7 g/dl (12.0-16.0); Immature Granulocytes # (auto) 0.13 K/uL (0.00-0.02); Immature Granulocytes % (auto) 0.9 %; Lymphocytes # (auto) 2.19 K/uL (1.2-3.4); Lymphocytes % (auto) 14.6 %; Mean Corpuscular Hemoglobin 28.7 pg (25.0-34.0); Mean Corpuscular Volume 86.9 fL (80.0-100.0); Mean Platelet Volume 9.1 fL (9.4-12.3); Monocytes # (auto) 0.83 K/uL (0.24-0.82); Monocytes % (auto) 5.5 %; Neutrophils # (auto) 11.43 K/uL (1.4-6.5); Neutrophils % (auto) 76.4 %; Platelet Count 482 K/uL (130-400); RDW Coefficient of Variation 15.9 % (11.5-14.5); RDW Standard Deviation 50.3 fL (36.4-46.3); Red Blood Count 3.73 M/uL (3.93-5.22); White Blood Count 14.97 K/ul (4.8-10.8)
[2022-04-19] MEDS ORDERED: METOPROLOL TARTRATE 50 MG TAB ONE (08:12)
[2022-04-19 08:15] LABS: BUN Creatinine Ratio 15.2 (10-20); Calcium 7.8 mg/dl (8.5-10.1); Creatinine Clr Calc Pharmacy 179.3 ml/min; Est GFR (African American) 138.4 ml/min; Est GFR (Non-African American) 119.4 ml/min; Potassium 3.6 mmol/L (3.5-5.1)
[2022-04-19 08:16] LABS: Estimated Average Glucose 137 mg/dl; Hemoglobin A1C 6.4 % (4.5-5.6)
[2022-04-19] MEDS: ENOXAPARIN INJ 40 MG/0.4 ML SYR SQ SCH (08:22)
[2022-04-19] MEDS: ASPIRIN 81 MG ECTAB PO SCH (08:22)
[2022-04-19] MEDS: PRENATAL VITAMIN 1 TAB PO SCH (08:22)
[2022-04-19] MEDS ORDERED: FUROSEMIDE 40 MG/4 ML VIAL IV SCH (09:00)
--- NOTE | 2022-04-19 14:40 | Hospitalist Progress Note ---
Date of Service April 19, 2022 Assessment & Plan (1) Hypervolemia: Plan: fluid retention and worsening shortness of breath secondary to hypervolemia. Echo reveals preserved ejection fraction. She is responding well to diuretic therapy. Continue Lasix 40 mg p.o. twice daily pending improvement. Continue potassium replacement and electrolyte replacement as needed. (2) hypertension: Plan: She is around goal blood pressure on metoprolol and Lasix. BP may be slightly inflated given recent headache with improvement after codeine. Continue to monitor closely in PCU. If she needs long-term blood pressure support, consider outpatient consultation with nephrology. This was explained to her. (3) GDM (gestational diabetes mellitus): Plan: off treatment . Outpatient monitoring. (4) Morbid obesity: Plan: Continue lifestyle modifications as tolerated DVT prophylaxis with Lovenox Full code Disposition-to home in 1 to 2 days pending response to diuretic therapy and improvement in blood pressure and overall clinical picture. Casandra Trinidad DO [facility] Hospitalist Admission and Anticipated Discharge Date Admission Date: April 19, 2022 Subjective 31-year-old peripartum female who is presenting for hypertension and edema with ongoing shortness of breath that has been getting worse secondary to fluid overload for the past 2 weeks. She was been unable to lie flat at home. She is still having difficulty taking deep breath but feels overall better since starting on diuretic therapy. She is net -2.5 L since admission. She reports her abdomen feels better since the swelling has been reduced. An echo was performed today revealing a preserved ejection fraction. She had a headache and was given codeine. She continues to breast-feed. Review of Systems Review of Systems: All systems reviewed negative except as indicated above. Physical Exam Physical Exam: CONSTITUTIONAL: obese, vitals as above, generally well- appearing, NAD EYES: normal conjunctivae, no scleral icterus ENT: external ear and nose normal, MMM NECK: trachea midline RESPIRATORY: clear to auscultation bilaterally with decreased breath sounds at bases, no crackles, rales or wheezes, normal respiratory effort CARDIOVASCULAR: regular rate and rhythm, S1 and 2 heard without murmurs or gallops, +rub is auscultated, no peripheral edema. CHEST: inspection of chest was normal GASTROINTESTINAL: soft, nontender, suprapubic incision is closed and healing well, no surrounding erythema, no guarding MUSCULOSKELETAL: strength 5/5 throughout, head is normocephalic and atraumatic SKIN: warm and dry, +follicular/papular rash on her back NEUROLOGIC: CN 2-12 grossly intact, no sensory deficit, normal cognition, normal speech, no tremor PSYCHIATRIC: alert cooperative and oriented to person, place and time. Euthymic mood, makes good eye contact, language grossly intact, recent and remote memory grossly intact. Results & Data Results & Data ([facility]) Vital Signs (Past 12 Hours) Vital Signs Temp Pulse Pulse Resp BP BP Pulse Ox 04/19/22 14:01 148/104 H 04/19/22 14:01 97 H 17 97 04/19/22 14:00 94 H 16 97 04/19/22 13:01 145/107 H 04/19/22 13:01 103 H 15 97 04/19/22 13:00 104 H 22 96 04/19/22 12:01 155/115 H 04/19/22 12:01 100 H 15 97 04/19/22 12:00 101 H 16 97 04/19/22 11:00 142/100 H 04/19/22 11:00 95 H 04/19/22 11:00 93 H 21 95 04/19/22 10:50 98 H 23 97 04/19/22 10:50 143/105 H 04/19/22 10:47 133/103 H 04/19/22 10:47 101 H 24 98 04/19/22 10:45 102 H 17 98 04/19/22 10:41 99 04/19/22 10:30 146/92 H 04/19/22 11:04 36.8 C 04/19/22 10:34 87 20 146/92 H 97 04/19/22 08:15 104 H 22 142/98 H 97 04/19/22 08:00 96 H 16 149/107 H 97 04/19/22 07:01 97 H 154/98 H 97 04/19/22 06:00 87 23 136/105 H 98 04/19/22 05:45 87 22 149/98 H 97 04/19/22 05:30 150/106 H 04/19/22 05:15 87 22 96 04/19/22 05:15 144/102 H 04/19/22 05:00 89 22 147/101 H 97 04/19/22 04:00 82 22 94 12/20/22 04:00 90 22 142/98 H 97 04/19/22 03:45 98 H 24 151/98 H 97 04/19/22 03:25 97 H 24 152/101 H 95 04/19/22 03:00 109 H 18 97 04/19/22 03:00 185/116 H 04/19/22 02:50 103 H 25 H 98 04/19/22 02:45 106 H 27 H 96 04/19/22 02:45 181/112 H O2 Del Method 04/19/22 14:01 04/19/22 14:01 04/19/22 14:00 04/19/22 13:01 04/19/22 13:01 04/19/22 13:00 04/19/22 12:01 04/19/22 12:01 04/19/22 12:00 04/19/22 11:00 04/19/22 11:00 04/19/22 11:00 04/19/22 10:50 04/19/22 10:50 04/19/22 10:47 04/19/22 10:47 04/19/22 10:45 04/19/22 10:41 04/19/22 10:30 04/19/22 11:04 04/19/22 10:34 Room Air 04/19/22 08:15 04/19/22 08:00 04/19/22 07:01 04/19/22 06:00 04/19/22 05:45 04/19/22 05:30 04/19/22 05:15 04/19/22 05:15 04/19/22 05:00 04/19/22 04:00 04/19/22 04:00 04/19/22 03:45 04/19/22 03:25 Room Air 04/19/22 03:00 04/19/22 03:00 04/19/22 02:50 04/19/22 02:45 04/19/22 02:45 Laboratory Results Short CBC 04/18/22 04/19/22 Range/Units 17:49 07:12 WBC 15.31 H 14.97 H (4.8-10.8) K/ul Hgb 11.0 L 10.7 L (12.0-16.0) g/dl Hct 33.7 L 32.4 L (34.1-44.9) % Plt Count 486 H 482 H (130-400) K/uL BMP 04/18/22 04/19/22 17:49 07:12 Sodium 140 140 Potassium 4.1 3.6 Chloride 107 106 Carbon Dioxide 26 28 BUN 13 10 Creatinine 0.61 0.66 Glucose 69 L 79 Calcium 7.9 L 7.8 L Liver Function 04/18/22 Range/Units 17:49 Total Bilirubin 0.4 (0.2-1.0) mg/dl AST 33 (13-39) U/L ALT 34 (7-52) U/L Alkaline Phosphatase 72 (34-104) U/L Albumin 3.3 L (3.4-5.0) gm/dl Medications Administered Current Inpatient Medications Acetaminophen (Acetaminophen 325 Mg Tab) 650 mg PO Q4H PRN PRN Reason: Pain or Fever Stop: 05/19/22 03:33 Last Admin: 04/19/22 11:09 Dose: 650 mg Acetaminophen/Codeine Phosphate (Acetaminophen W/Codeine #3 1 Tab) 1 tab PO QID PRN PRN Reason: pain not relieved by tylenol Stop: 05/19/22 03:33 Aspirin (Aspirin 81 Mg Ectab) 81 mg PO DAILY [facility] Stop: 05/19/22 08:59 Last Admin: 04/19/22 08:22 Dose: 81 mg Enoxaparin Sodium (Enoxaparin Inj 40 Mg/0.4 Ml Syr) 40 mg SQ QAM [facility] Stop: 05/19/22 08:59 Last Admin: 04/19/22 08:22 Dose: 40 mg Furosemide (Furosemide 40 Mg/4 Ml Vial) 40 mg IV BID [facility] Stop: 04/21/22 08:59 Last Admin: 04/19/22 08:22 Dose: 40 mg Metoprolol Tartrate (Metoprolol Tartrate 25 Mg Tab) 25 mg PO BID [facility] Stop: 05/19/22 20:59 Ondansetron HCl (Ondansetron Inj 2 Mg/Ml 2 Ml Vial) 4 mg IV Q4H PRN PRN Reason: Nausea Stop: 05/19/22 03:33 Prenat Multivit/Bailey/Iron/Folic Ac ( Vitamin 1 Tab) 1 tab PO QAM [facility] Stop: 05/19/22 08:59 Last Admin: 04/19/22 08:22 Dose: 1 tab
--- NOTE | 2022-04-19 14:51 | Cardiology Consultation ---
Date of Consultation April 19, 2022 Assessment & Plan (1) Hypervolemia: (2) CHF (congestive heart failure): (3) hypertension: Plan The echocardiogram obtained today would lead us away from a peripartum cardiomyopathy. I think she is just volume overloaded from her . I would continue gentle diuresis. The patient is noted to be also hypertensive . Consideration can be given to starting appropriate antihypertensive medications. The patient will be breast-feeding. I would recommend if necessary starting the patient on metoprolol or labetalol which are appropriate for patients that are breast-feeding with minimal transfer to the infants. Her hypertension would be considered mild and these medications along with diuresis should be enough. They can be continued for several weeks and then reassessment for the need of any medications for the patient's blood pressure should be given. History of Present Illness Attending Physician: Casandra Trinidad, History of Present Illness This is a 31-year-old peripartum female who was admitted through the emergency department with lower extremity edema and shortness of breath. This is her first and she was delivered by section approximately 2 weeks ago. She did have gestational diabetes during the . She also noted some lower extremity edema which seemed to worsen after her delivery. No history of preeclampsia or hypertension during her . Her echocardiogram completed on admission shows no significant valvular pathology and normal left and right ventricular systolic function. She was given IV Lasix in the emergency department with improvement of her symptoms. She denies chest pain. She has had no heart palpitations. She is maintaining sinus rhythm. Allergies Allergy/AdvReac Type Severity Reaction Status Date / Time amoxicillin Allergy Intermediate Hives Verified 04/18/22 20:21 Home Medications Medication Instructions Recorded Confirmed Type cephalexin 500 mg capsule 500 mg PO QID #28 caps 04/11/22 04/18/22 Rx ibuprofen 600 mg tablet 600 mg PO Q6H PRN pain #60 tabs 04/11/22 04/18/22 Rx metronidazole 500 mg tablet 500 mg PO BID #14 tabs 04/11/22 04/18/22 Rx aspirin 81 mg tablet,delayed 81 mg PO DAILY 04/18/22 04/18/22 History release vits no.124-ferrous fum 1 tab PO QAM 04/18/22 04/18/22 History 27 mg iron-folic acid 800 mcg tablet ( Vitamin) Patient History Medical History (Updated 04/19/22 @ 18:20 by Casandra Trinidad DO) Asthma GDM (gestational diabetes mellitus) Migraine without aura Morbid obesity Surgical History History of wisdom tooth extraction Family History Family/Other Breast cancer Father Myocardial infarction Daughter No problems noted. Grandfather Myocardial infarction Denies family history of Ovarian cancer Prostate cancer Colorectal cancer Social History Smoking Status: Never smoker Second Hand Exposure: No; Hx Alcohol Use: No Hx Substance Use: No Preferred Language: Slovenian Communication Ability: Effective Landfill Grader Required: No Beliefs That Will Affect Care: None marital status: Current Living Situation: Spouse Current Living Situation Comment: - Ace, 3 dogs Feels Safe at Home: Yes Safety Concerns: Feels Safe At This Time Assistive Devices: None Review of Systems Review of Systems: Review of Systems: See HPI for pertinent positives. All other 10 point review of systems are negative. Physical Exam Physical Exam: General: no acute distress and stated age Head: normocephalic, no masses, lesions, tenderness or abnormalities Eyes: conjunctiva are pink and non-injected, sclera clear Neck: supple, no adenopathy, no bruits, normal jugular venous pulse, no hepatojugular reflux Chest: normal shape and normal respiratory effort Lungs: clear to auscultation and percussion Cardiac Exam: - regular rate & rhythm, no murmurs gallops or rubs - normal S1, normal S2 Pulses: 2(+) throughout Abdomen: abdomen Musculoskeletal: no gait disturbance, no joint inflammation, no deforming arthritis Extremities: Bilateral lower extremity edema Neuro: grossly normal exam Results & Data ([facility]) Vital Signs (Past 12 Hours) Vital Signs Temp Pulse Pulse Resp BP BP Pulse Ox 04/19/22 14:01 148/104 H 04/19/22 14:01 97 H 17 97 04/19/22 14:00 94 H 16 97 04/19/22 13:01 145/107 H 04/19/22 13:01 103 H 15 97 04/19/22 13:00 104 H 22 96 04/19/22 12:01 155/115 H 04/19/22 12:01 100 H 15 97 04/19/22 12:00 101 H 16 97 04/19/22 11:00 142/100 H 04/19/22 11:00 95 H 04/19/22 11:00 93 H 21 95 04/19/22 10:50 98 H 23 97 04/19/22 10:50 143/105 H 04/19/22 10:47 133/103 H 04/19/22 10:47 101 H 24 98 04/19/22 10:45 102 H 17 98 04/19/22 10:41 99 04/19/22 10:30 146/92 H 04/19/22 11:04 36.8 C 04/19/22 10:34 87 20 146/92 H 97 04/19/22 08:15 104 H 22 142/98 H 97 04/19/22 08:00 96 H 16 149/107 H 97 04/19/22 07:01 97 H 154/98 H 97 04/19/22 06:00 87 23 136/105 H 98 04/19/22 05:45 87 22 149/98 H 97 04/19/22 05:30 150/106 H 04/19/22 05:15 87 22 96 04/19/22 05:15 144/102 H 04/19/22 05:00 89 22 147/101 H 97 04/19/22 04:00 82 22 94 04/19/22 04:00 90 22 142/98 H 97 04/19/22 03:45 98 H 24 151/98 H 97 04/19/22 03:25 97 H 24 152/101 H 95 04/19/22 03:00 109 H 18 97 04/19/22 03:00 185/116 H 04/19/22 02:50 103 H 25 H 98 04/19/22 02:45 106 H 27 H 96 04/19/22 02:45 181/112 H 04/19/22 02:40 99 H 26 H 96 O2 Del Method 04/19/22 14:01 04/19/22 14:01 04/19/22 14:00 04/19/22 13:01 04/19/22 13:01 04/19/22 13:00 04/19/22 12:01 04/19/22 12:01 04/19/22 12:00 04/19/22 11:00 04/19/22 11:00 04/19/22 11:00 04/19/22 10:50 04/19/22 10:50 04/19/22 10:47 04/19/22 10:47 04/19/22 10:45 04/19/22 10:41 04/19/22 10:30 04/19/22 11:04 04/19/22 10:34 Room Air 04/19/22 08:15 04/19/22 08:00 04/19/22 07:01 04/19/22 06:00 04/19/22 05:45 04/19/22 05:30 04/19/22 05:15 04/19/22 05:15 04/19/22 05:00 04/19/22 04:00 04/19/22 04:00 04/19/22 03:45 04/19/22 03:25 Room Air 04/19/22 03:00 04/19/22 03:00 04/19/22 02:50 04/19/22 02:45 04/19/22 02:45 04/19/22 02:40 Laboratory Results Laboratory Results - last 24 hr 04/18/22 04/18/22 04/18/22 17:49 17:49 17:49 WBC 15.31 H RBC 3.81 L Hgb 11.0 L Hct 33.7 L MCV 88.5 MCH 28.9 MCHC 32.6 RDW Std Deviation 51.8 H RDW Coeff of [place] 16.0 H Plt Count 486 H MPV 9.0 L Immature Gran % (Auto) 2.2 Neut % (Auto) 74.2 Lymph % (Auto) 15.7 Hall % (Auto) 5.0 Eos % (Auto) 2.1 Baso % (Auto) 0.8 Neut # (Auto) 11.36 H Lymph # (Auto) 2.40 Hall # (Auto) 0.77 Eos # (Auto) 0.32 Baso # (Auto) 0.12 Immature Gran # (Auto) 0.34 H PT 10.8 INR 1.0 APTT 26.3 PTT Ratio 1.0 Sodium 140 Potassium 4.1 Chloride 107 Carbon Dioxide 26 Anion Gap 7 BUN 13 Creatinine 0.61 Est Cr Clr Drug Dosing 194.0 Est GFR ( Amer) 142.0 Est GFR (Non-Af Amer) 122.5 BUN/Creatinine Ratio 21.3 H Glucose 69 L Estimat Average Glucose Hemoglobin A1c Calcium 7.9 L Magnesium 1.7 Total Bilirubin 0.4 AST 33 ALT 34 Alkaline Phosphatase 72 Troponin I High Sens 8.0 B-Natriuretic Peptide Total Protein 6.7 Albumin 3.3 L Globulin 3.4 Albumin/Globulin Ratio 1.0 Procalcitonin TSH Free T4 Nasal Screen MRSA (PCR) SARS-CoV-2, RNA, NAAT 04/18/22 04/18/22 04/18/22 17:49 17:49 Unknown WBC RBC Hgb Hct MCV MCH MCHC RDW Std Deviation RDW Coeff of [place] Plt Count MPV Immature Gran % (Auto) Neut % (Auto) Lymph % (Auto) Hall % (Auto) Eos % (Auto) Baso % (Auto) Neut # (Auto) Lymph # (Auto) Hall # (Auto) Eos # (Auto) Baso # (Auto) Immature Gran # (Auto) PT INR APTT PTT Ratio Sodium Potassium Chloride Carbon Dioxide Anion Gap BUN Creatinine Est Cr Clr Drug Dosing Est GFR ( Amer) Est GFR (Non-Af Amer) BUN/Creatinine Ratio Glucose Estimat Average Glucose Hemoglobin A1c Calcium Magnesium Total Bilirubin AST ALT Alkaline Phosphatase Troponin I High Sens B-Natriuretic Peptide 268 H Total Protein Albumin Globulin Albumin/Globulin Ratio Procalcitonin < 0.05 TSH 6.658 H Free T4 0.73 Nasal Screen MRSA (PCR) SARS-CoV-2, RNA, NAAT 04/19/22 04/19/22 04/19/22 00:54 07:12 07:12 WBC 14.97 H RBC 3.73 L Hgb 10.7 L Hct 32.4 L MCV 86.9 MCH 28.7 MCHC 33.0 RDW Std Deviation 50.3 H RDW Coeff of [place] 15.9 H Plt Count 482 H MPV 9.1 L Immature Gran % (Auto) 0.9 Neut % (Auto) 76.4 Lymph % (Auto) 14.6 Hall % (Auto) 5.5 Eos % (Auto) 1.9 Baso % (Auto) 0.7 Neut # (Auto) 11.43 H Lymph # (Auto) 2.19 Hall # (Auto) 0.83 H Eos # (Auto) 0.28 Baso # (Auto) 0.11 Immature Gran # (Auto) 0.13 H PT INR APTT PTT Ratio Sodium 140 Potassium 3.6 Chloride 106 Carbon Dioxide 28 Anion Gap 6 BUN 10 Creatinine 0.66 Est Cr Clr Drug Dosing 179.3 Est GFR ( Amer) 138.4 Est GFR (Non-Af Amer) 119.4 BUN/Creatinine Ratio 15.2 Glucose 79 Estimat Average Glucose Hemoglobin A1c Calcium 7.8 L Magnesium Total Bilirubin AST ALT Alkaline Phosphatase Troponin I High Sens B-Natriuretic Peptide Total Protein Albumin Globulin Albumin/Globulin Ratio Procalcitonin TSH Free T4 Nasal Screen MRSA (PCR) SARS-CoV-2, RNA, NAAT NEGATIVE 04/19/22 04/19/22 07:12 10:52 WBC RBC Hgb Hct MCV MCH MCHC RDW Std Deviation RDW Coeff of [place] Plt Count MPV Immature Gran % (Auto) Neut % (Auto) Lymph % (Auto) Hall % (Auto) Eos % (Auto) Baso % (Auto) Neut # (Auto) Lymph # (Auto) Hall # (Auto) Eos # (Auto) Baso # (Auto) Immature Gran # (Auto) PT INR APTT PTT Ratio Sodium Potassium Chloride Carbon Dioxide Anion Gap BUN Creatinine Est Cr Clr Drug Dosing Est GFR ( Amer) Est GFR (Non-Af Amer) BUN/Creatinine Ratio Glucose Estimat Average Glucose 137 Hemoglobin A1c 6.4 H Calcium Magnesium Total Bilirubin AST ALT Alkaline Phosphatase Troponin I High Sens B-Natriuretic Peptide Total Protein Albumin Globulin Albumin/Globulin Ratio Procalcitonin TSH Free T4 Nasal Screen MRSA (PCR) Negative SARS-CoV-2, RNA, NAAT Medications Administered Current Inpatient Medications Acetaminophen (Acetaminophen 325 Mg Tab) 650 mg PO Q4H PRN PRN Reason: Pain or Fever Stop: 05/19/22 03:33 Last Admin: 04/19/22 11:09 Dose: 650 mg Acetaminophen/Codeine Phosphate (Acetaminophen W/Codeine #3 1 Tab) 1 tab PO QID PRN PRN Reason: pain not relieved by tylenol Stop: 05/19/22 03:33 Aspirin (Aspirin 81 Mg Ectab) 81 mg PO DAILY [facility] Stop: 05/19/22 08:59 Last Admin: 04/19/22 08:22 Dose: 81 mg Enoxaparin Sodium (Enoxaparin Inj 40 Mg/0.4 Ml Syr) 40 mg SQ QAM [facility] Stop: 05/19/22 08:59 Last Admin: 04/19/22 08:22 Dose: 40 mg Furosemide (Furosemide 40 Mg/4 Ml Vial) 40 mg IV BID [facility] Stop: 04/21/22 08:59 Last Admin: 04/19/22 08:22 Dose: 40 mg Metoprolol Tartrate (Metoprolol Tartrate 25 Mg Tab) 25 mg PO BID [facility] Stop: 05/19/22 20:59 Ondansetron HCl (Ondansetron Inj 2 Mg/Ml 2 Ml Vial) 4 mg IV Q4H PRN PRN Reason: Nausea Stop: 05/19/22 03:33 Prenat Multivit/[place]/Iron/Folic Ac ( Vitamin 1 Tab) 1 tab PO QAM [facility] Stop: 05/19/22 08:59 Last Admin: 04/19/22 08:22 Dose: 1 tab
[2022-04-19] MEDS: FUROSEMIDE 40 MG/4 ML VIAL IV SCH (17:56)
[2022-04-19] MEDS ORDERED: POTASSIUM CHLORIDE CRTAB 20 MEQ TABCR PO STA (18:17)
[2022-04-20] MEDS: METOPROLOL TARTRATE 25 MG TAB PO SCH ×2 (00:19→08:10)
[2022-04-20 06:26] LABS: Hematocrit (blood only) 33.8 % (34.1-44.9); Mean Corpuscular Hgb Conc 32.5 g/dL (32.0-36.0); Platelet Count 469 K/uL (130-400); RDW Coefficient of Variation 15.9 % (11.5-14.5); RDW Standard Deviation 49.8 fL (36.4-46.3); Red Blood Count 3.93 M/uL (3.93-5.22); White Blood Count 15.45 K/ul (4.8-10.8)
[2022-04-20 06:45] LABS: BUN Creatinine Ratio 18.6 (10-20); Calcium 7.8 mg/dl (8.5-10.1); Creatinine Clr Calc Pharmacy 161.8 ml/min; Est GFR (African American) 135.7 ml/min; Est GFR (Non-African American) 117.1 ml/min; Magnesium 1.8 mg/dl (1.7-2.4); Potassium 3.8 mmol/L (3.5-5.1)
[2022-04-20] MEDS: ASPIRIN 81 MG ECTAB PO SCH (08:09)
[2022-04-20] MEDS: ENOXAPARIN INJ 40 MG/0.4 ML SYR SQ SCH (08:09)
[2022-04-20] MEDS: PRENATAL VITAMIN 1 TAB PO SCH (08:10)
[2022-04-20] MEDS: FUROSEMIDE 40 MG/4 ML VIAL IV SCH (08:10)
--- NOTE | 2022-04-20 10:12 | Cardiology Progress Note ---
Date of Service April 20, 2022 Assessment & Plan (1) Hypervolemia: (2) CHF (congestive heart failure): (3) hypertension: Plan The patient has had a large diuresis since yesterday. Her blood pressure taken early this morning before she got her metoprolol is mildly elevated. From a cardiac standpoint I would continue the metoprolol at the current dosage. She may benefit from some continued diuresis even after discharge but from a cardiac standpoint she can be discharged per the medicine service. Admission and Anticipated Discharge Date Admission Date: April 19, 2022 Subjective The patient feels improved. She was able to lie flat last night to sleep. Review of Systems Review of Systems: Review of Systems: See HPI for pertinent positives. All other 10 point review of systems are negative. Physical Exam Physical Exam: General: no acute distress and stated age Head: normocephalic, no masses, lesions, tenderness or abnormalities Eyes: conjunctiva are pink and non-injected, sclera clear Neck: supple, no adenopathy, no bruits, normal jugular venous pulse, no hepatojugular reflux Chest: normal shape and normal respiratory effort Lungs: clear to auscultation and percussion Cardiac Exam: - regular rate & rhythm, no murmurs gallops or rubs - normal S1, normal S2 Pulses: 2(+) throughout Abdomen: abdomen Musculoskeletal: no gait disturbance, no joint inflammation, no deforming arthritis Extremities: Bilateral lower extremity edema Neuro: grossly normal exam Results & Data ([facility]) Vital Signs (Past 12 Hours) Vital Signs Temp Pulse Resp BP Pulse Ox O2 Del Method 04/20/22 06:04 145/97 H 04/20/22 06:04 98 H 18 97 04/20/22 06:00 98 H 23 96 04/20/22 05:00 113 H 13 95 04/20/22 04:00 93 H 12 97 Room Air 04/20/22 04:00 135/92 04/20/22 03:01 104 H 19 95 04/20/22 03:01 122/91 04/20/22 02:01 107 H 19 100 04/20/22 02:01 144/95 H 04/20/22 02:00 95 H 24 85 L 04/20/22 01:01 105 H 19 96 04/20/22 01:01 110/82 12/21/22 00:01 129/78 04/20/22 00:01 106 H 16 97 04/20/22 00:00 98 H 18 97 04/20/22 03:44 36.7 C 04/19/22 23:48 37.0 C 04/20/22 00:07 78 04/19/22 23:01 138/83 04/19/22 23:01 108 H 19 98 04/19/22 23:00 106 H 15 96 04/19/22 23:47 Room Air Laboratory Results Laboratory Results - last 24 hr 04/19/22 04/20/22 04/20/22 10:52 05:57 05:57 WBC 15.45 H RBC 3.93 Hgb 11.0 L Hct 33.8 L MCV 86.0 MCH 28.0 MCHC 32.5 RDW Std Deviation 49.8 H RDW Coeff of [place] 15.9 H Plt Count 469 H MPV 9.0 L Sodium 141 Potassium 3.8 Chloride 105 Carbon Dioxide 29 Anion Gap 7 BUN 13 Creatinine 0.70 Est Cr Clr Drug Dosing 161.8 Est GFR ( Amer) 135.7 Est GFR (Non-Af Amer) 117.1 BUN/Creatinine Ratio 18.6 Glucose 86 Calcium 7.8 L Magnesium 1.8 Nasal Screen MRSA (PCR) Negative Medications Administered Current Inpatient Medications Acetaminophen (Acetaminophen 325 Mg Tab) 650 mg PO Q4H PRN PRN Reason: Pain or Fever Stop: 05/19/22 03:33 Last Admin: 04/19/22 11:09 Dose: 650 mg Acetaminophen/Codeine Phosphate (Acetaminophen W/Codeine #3 1 Tab) 1 tab PO QID PRN PRN Reason: pain not relieved by tylenol Stop: 05/19/22 03:33 Last Admin: 04/19/22 16:11 Dose: 1 tab Aspirin (Aspirin 81 Mg Ectab) 81 mg PO DAILY [facility] Stop: 05/19/22 08:59 Last Admin: 04/20/22 08:09 Dose: 81 mg Enoxaparin Sodium (Enoxaparin Inj 40 Mg/0.4 Ml Syr) 40 mg SQ QAM [facility] Stop: 05/19/22 08:59 Last Admin: 04/20/22 08:09 Dose: 40 mg Furosemide (Furosemide 40 Mg/4 Ml Vial) 40 mg IV BID17 [facility] Stop: 04/21/22 17:59 Last Admin: 04/20/22 08:10 Dose: 40 mg Metoprolol Tartrate (Metoprolol Tartrate 25 Mg Tab) 25 mg PO BID [facility] Stop: 05/19/22 20:59 Last Admin: 04/20/22 08:10 Dose: 25 mg Ondansetron HCl (Ondansetron Inj 2 Mg/Ml 2 Ml Vial) 4 mg IV Q4H PRN PRN Reason: Nausea Stop: 05/19/22 03:33 Prenat Multivit/Clerk Checker/Iron/Folic Ac ( Vitamin 1 Tab) 1 tab PO QAM [facility] Stop: 05/19/22 08:59 Last Admin: 04/20/22 08:10 Dose: 1 tab
--- NOTE | 2022-04-20 11:40 | Discharge Summary ---
Date of Service April 20, 2022 Admission HPI Per Admitting Provider History obtained from patient and records. Medical history significant for gestational DM, morbid obesity. Recent confinement April 05 to 2021 under OB service for childbirth. Primigravida admitted for induction of labor. Patient on aspirin prophylaxis given risk factors for preeclampsia as per patient. Subsequent section done on April 08, 2022 due to arrest of active phase of labor. Shortness of breath, orthopnea, leg swelling, and fluid retention symptoms noted by patient during peripartum period. Decreased urine output after delivery as per patient. CT abdomen pelvis done to rule out injury as per patient. CT report from 04/09 as follows. 1. No hydronephrosis. No convincing evidence for ureteral injury however mid to distal right ureter is suboptimally assessed on this exam. However, no extraluminal contrast. Normal appearance of the left ureter. 2. Expected findings following recent section, as described above. 3. Trace bilateral pleural effusions. Subpleural opacities which favor atelectasis however aspiration pneumonitis or pneumonia could appear similar. 4. Mild interstitial pulmonary edema. Persistent shortness of breath and fluid retention symptoms even upon return home. No actual chest pain. No cough symptoms. Elevated BP SBP 140s on outpatient OB follow-up 4 days ago. Patient directed to ER due to worsening symptoms. IV Lasix administered at the ER for CHF. Medical History as above Surgical History : section, dental surgery Family History : Heart disease, DM, alcoholism, esophageal cancer, asthma Personal/Social history : Non-smoker, no EtOH intake, [facility] Admission Exam Per Admitting Provider GENERAL: Comfortable, pleasant, morbidly obese, no respiratory distress SKIN: Pallor, warm HEENT: Pale palpebral conjunctivae, no ptosis, dry buccal mucosa NECK : Supple, short neck, no tenderness CHEST : Decreased breath sounds, no tenderness HEART : Tachycardic, no obvious murmurs ABDOMEN: Some distention, nontender EXTREMITIES : Bilateral LE swelling, no LE tenderness, no other conspicuous deformities noted NEUROLOGIC : Coherent, no facial asymmetry, no other gross focality Principal Diagnosis volume overload related to Discharge Exam GENERAL: Comfortable, pleasant, morbidly obese, no respiratory distress SKIN: Pallor, warm HEENT: normal palpebral conjunctivae, no ptosis, MMM NECK : Supple, short neck, no tenderness CHEST : CTAB, no wheezing, crackles, rhonchi, no tenderness HEART : Tachycardic, no obvious murmurs ABDOMEN: Some distention, nontender EXTREMITIES : no LE swelling, no LE tenderness, no other conspicuous deformities noted NEUROLOGIC : Coherent, no facial asymmetry, no other gross focality Discharge Data Allergies Allergy/AdvReac Type Severity Reaction Status Date / Time amoxicillin Allergy Intermediate Hives Verified 04/18/22 20:21 Consultations 04/19/22 00:49 ED Decision to Admit Stat 04/19/22 03:34 Consult Cardiology Routine Ordered Studies 04/18/22 19:22 CT angio chest PE protocol Stat Hospital Course (1) Hypervolemia: - fluid retention and worsening shortness of breath secondary to hypervolemia. - Echo reveals preserved ejection fraction. - She responded well to diuretic therapy. - s/p Lasix 40 mg p.o. twice daily pending improvement - patient euvolemic at this time - ok for discharge by cardiology and medicine - will give 5 days of po lasix 20mg and follow up with cardiology and pcp (2) hypertension: - She is around goal blood pressure on metoprolol and Lasix. - continued on metoprolol tartrate 25mg BID - discharge on metoprolol with PCP/Cardiology follow up (3) GDM (gestational diabetes mellitus): - off treatment . Outpatient monitoring. (4) Morbid obesity: - Continue lifestyle modifications as tolerated Plan DVT prophylaxis with Lovenox Full code Disposition-to home today 04/20/2022 Total Time Total Time Spent Total Time Spent (In Minutes): 35 Total Time Includes: Examination of the Patient, Discharge Planning, Medication Reconciliation and Communication With Other Providers Discharge Plan Discharge Items Patient Disposition: Home - Self-Care Reason For Visit: CHF Discharge Diagnosis: volume overload related to Activity: Resume your previous activity Non-emergency contact: Primary Care Provider and Fun House Operator Call non-emergency contact if: you have any medication questions and your symptoms worsen Follow-up/Referrals: Alan Maloney DO [Fun House Operator] - Robert Gilliland DO [Primary Care Provider] - Diet: Heart Healthy Addtl Attending Provider Instructions: You were admitted due to shortness of breath and found to be overloaded with fluid. Your heart was checked and its function was normal. You were seen by cardiology who recommended IV Lasix medication to help you urinate out the fluid. You had much improvement with treatment and were ok for discharge home. you should continue about 5 days of 20mg of lasix (furosemide) and continue meto prolol 25mg 2x/day that was started in the hospital due to mildly elevated BP. You should follow up with your primary care doctor, emergency department technician, and OBGYN on discharge. Pending Studies at Discharge: No Stand-Alone Forms: My [facility], Smoking Cessation Medications and DC Order Prescriptions: New metoprolol tartrate 25 mg Tablet 25 mg PO BID Qty: 60 0RF furosemide [Lasix] 20 mg tablet 20 mg PO DAILY Qty: 5 0RF Continued ibuprofen 600 mg Tablet 600 mg PO Q6H PRN (Reason: pain) Qty: 60 0RF aspirin 81 mg Tablet,Delayed Release (Dr/Ec) 81 mg PO DAILY Vitamin 27 mg iron- 800 mcg tablet 1 tab PO QAM Discontinued cephalexin 500 mg Capsule 500 mg PO QID Qty: 28 0RF Rx Instructions: STARTED 04/11/22 FOR 7 DAYS. metronidazole 500 mg Tablet 500 mg PO BID Qty: 14 0RF Rx Instructions: STARTED 04/11/22 FOR 7 DAYS Discharge Orders: Discharge Order (Routine); Ordered 04/20/22 Ordered By: Abhijit Dang/Other Patient Handouts: A1C, 5 Steps for Eating Healthier, Gestational Diabetes Post Preg Admission Data Admit Date/Time: 04/19/22 02:19 Attending Provider: Abhijit Grady Admit Provider: Pablo Epstein Primary Care Provider: Robert Gilliland Other Providers: Pablo Epstein ; Cedric Boogie
--- NOTE | 2022-04-20 21:25 | Electrocardiogram Report ---
Test Reason : Blood Pressure : / mmHG Vent. Rate : 099 BPM Atrial Rate : 099 BPM P-R Int : 110 ms QRS Dur : 072 ms QT Int : 340 ms P-R-T Axes : 057 088 047 degrees QTc Int : 436 ms Sinus rhythm Possible Anterior infarct , age undetermined Nonspecific T wave abnormality Abnormal ECG When compared with ECG of 14-MAY-2020 10:19, Nonspecific T wave abnormality now evident in Anterior leads Confirmed by Mauri Mora ([id number]) on 04/20/2022 9:25:12 PM Referred By: Evangelina Lockwood Confirmed By:Mauri Mora
== END 2022-04-20 12:25 | disposition home or self-care (01) | DRG 776 ==
LOC: ED 15:36 → EDINP 04-19 02:19 → SUATTDRO 04-19 02:19 → 1E 04-19 03:34